=== PATIENT | female | born 1975 | race Caucasian/White ===

== ENCOUNTER 2018-07-10 13:12 | Emergency (ER) | END 2018-07-10 14:16 | disposition home or self-care (01) ==

== ENCOUNTER 2019-05-24 00:55 | Inpatient (IN) | payer OTHER ==
[~2019-05-24] VITALS: Ht 157.5 cm; Wt 73.4 kg
[~2019-05-24 00:55] MED LIST: CEPH-443 PO; SULF1TAB31 PO
[2019-05-24] MEDS ORDERED: ALBUTEROL 0.5% (NEB) 2.5 MG/0.5 ML AMP INH STA (01:17)
--- NOTE | 2019-05-24 01:19 | ERD ---
ER Documentation Chief Complaint Chief Complaint SOB,wheezing since yesterday,denies chest pain HPI This is a 43-year-old woman complaining of shortness of breath, dyspnea on exertion, orthopnea x2 days with increased leg swelling. This evening she had difficulty breathing and called 911. She denies history of asthma or CHF, no r ecent fevers or chills, no chest pain, no vomiting or diarrhea ROS All systems reviewed and are negative except as per history of present illness. Medications Home Meds Active Scripts Sulfamethoxazole/Trimethoprim* (Bactrim Ds* Tablet) 1 Each Tablet, 1 TAB PO BID, #14 TAB Prov:JASWINDER OLIVO MD 07/10/18 Cephalexin* (Keflex*) 500 Mg Capsule, 500 MG PO QID for 7 Days, CAP Prov:JASWINDER OLIVO MD 07/10/18 Allergies Allergies: Coded Allergies: No Known Allergy (Unverified , 05/24/19) PMhx/Soc Obesity, hypertension, diabetes mellitus History of Surgery: No Anesthesia Reaction: No Hx Neurological Disorder: No Hx Respiratory Disorders: No Hx Cardiac Disorders: No Hx Psychiatric Problems: No Hx Miscellaneous Medical Probl: Yes Physical Exam Vitals Vital Signs Date Temp Pulse Resp B/P (MAP) Pulse Ox O2 O2 Flow FiO2 Time Delivery Rate 05/24/19 109 100 50 03:28 05/24/19 108 25 229/115 100 BIPAP 02:18 (153) 05/24/19 121 98 50 01:11 05/24/19 97.8 128 36 240/107 75 01:06 (151) Physical Exam Const: Well-developed well-nourished woman, dyspneic, afebrile HEENT: Positive JVD, moist mucous membranes, pink conjunctive a Resp: Crackles throughout the lung burden, minimal wheezes no stridor Cardio: Tachycardic and regular no murmurs Ext: No cyanosis, 3+ pitting edema in the lower extremities bilaterally, calves symmetrical Neur: Awake and alert x3, no focal deficits or facial asymmetry Psych: Normal Mood and Affect Result Diagram: 05/24/198 05/24/198 Results 24 hrs Laboratory Tests Test 05/24/19 01:18 05/24/19 01:19 05/24/19 01:45 White Blood Count 12.0 10^3/ul Red Blood Count 4.77 10^6/ul Hemoglobin 11.2 g/dl Hematocrit 36.1 % Mean Corpuscular Volume 75.7 fl Mean Corpuscular Hemoglobin 23.5 pg Mean Corpuscular 31.0 g/dl Hemoglobin Concent Red Cell Distribution Width 19.8 % Platelet Count 361 10^3/UL Mean Platelet Volume 10.5 fl Immature Granulocytes % 0.500 % Neutrophils % 79.9 % Lymphocytes % 13.1 % Monocytes % 3.6 % Eosinophils % 2.3 % Basophils % 0.6 % Nucleated Red Blood Cells % 0.0 /100WBC Immature Granulocytes # 0.060 10^3/ul Neutrophils # 9.6 10^3/ul Lymphocytes # 1.6 10^3/ul Monocytes # 0.4 10^3/ul Eosinophils # 0.3 10^3/ul Basophils # 0.1 10^3/ul Nucleated Red Blood Cells # 0.0 10^3/ul Sodium Level 143 mmol/L Potassium Level 5.2 mmol/L Chloride Level 114 mmol/L Carbon Dioxide Level 17 mmol/L Anion Gap 12 Blood Urea Nitrogen 58 mg/dl Creatinine 5.60 mg/dl Est Glomerular Filtrat 8 mL/min Rate mL/min Glucose Level 276 mg/dl Calcium Level 8.3 mg/dl Total Bilirubin 0.2 mg/dl Direct Bilirubin 0.00 mg/dl Indirect Bilirubin 0.2 mg/dl Aspartate Amino Transf (AST/SGOT) 20 IU/L Alanine 12 IU/L Aminotransferase (ALT/SGPT) Alkaline Phosphatase 120 IU/L Troponin I 0.055 ng/ml B-Type Natriuretic Peptide 20552 PG/ML Total Protein 7.6 g/dl Albumin 3.6 g/dl Globulin 4.00 g/dl Albumin/Globulin Ratio 0.90 Lipase 213 U/L Prothrombin Time Pending Prothrombin Time Ratio 1.0 INR International Pending Normalized Ratio Activated Partial Thromboplast 32.6 Sec Time Urine Color STRAW Urine Clarity SLIGHTLY CLOUDY Urine pH 6.0 Urine Specific [place] 1.009 Urine Ketones NEGATIVE mg/dL Urine Nitrite NEGATIVE mg/dL Urine Bilirubin NEGATIVE mg/dL Urine Urobilinogen NEGATIVE mg/dL Urine Leukocyte Esterase 1+ Ana/ul Urine Microscopic RBC 2 /HPF Urine Microscopic WBC 152 /HPF Urine Hemoglobin 1+ mg/dL Urine Glucose 3+ mg/dL Urine Total Protein 3+ mg/dl Current Medications Medications Dose Sig/Beckie Start Time Status Last (Trade) Ordered Route PRN Stop Time Admin Dose Reason Admin Furosemide 60 mg ONCE ONCE 05/24/19 DC 05/24/19 (Lasix) IV 01:30 05/24/19 01:22 01:31 Aspirin 324 mg ONCE ONCE 05/24/19 DC 05/24/19 (Aspirin) PO 01:30 05/24/19 01:21 01:31 Enalaprilat 1.25 mg ONCE ONCE 05/24/19 DC 05/24/19 (Vasotec Iv) IV 01:30 05/24/19 01:21 01:31 Albuterol 10 mg ONCE STAT 05/24/19 DC 05/24/19 (Proventil INH 01:17 05/24/19 02:08 0.5% (Neb)) 01:22 Clonidine 0.1 mg ONCE ONCE 05/24/19 DC 05/24/19 (Catapres) PO 02:30 05/24/19 02:17 02:31 Procedures/MDM IV line was established patient was placed on wind energy engineer rhythm strip revealed a narrow complex tachycardia at 120 bpm with upright P and T waves. Patient was afebrile EKG performed, read by me revealed a sinus tachycardia at 119 bpm, normal axis, narrow QRS complex, no concerning ST elevations or depressions noted Patient was placed on BiPAP therapy also administered furosemide 60 mg IV x1, aspirin 324 mg p.o. for cardioprotective measures, enalapril 1.25 mg IV for hypertension Patient also received albuterol 10 mg via nebulizer. 1 view chest x-ray performed, read by me revealed bilateral pulmonary edema, no acute infiltrates, no pneumothorax CBC was unremarkable electrolytes revealed acute renal failure with a BUN/creatinine of 58/5.6, and mild hyperkalemia, liver function tests were unremarkable, troponin negative, BNP elevated, urinalysis positive for infection. Critical Care: Time: 50 minutes, this was time separate from other billable procedures. Treatments/Evaluations: Close monitoring and treatment of unstable vital signs, cardiorespiratory, and neurologic status, while maintaining tight balance of fluid, respiratory, and cardiac interventions. For continued hypertension I administered clonidine 0.1 mg p.o. x1 Dumont catheter was placed and I treated the patient with ceftriaxone 1 g IV Patient will be admitted to telemetry setting for continued medical management and cardiology and nephrology consultation Departure Diagnosis: Primary Impression: Hypertensive emergency Additional Impressions: Acute pulmonary edema Acute renal failure Acute renal failure type: with acute tubular necrosis Qualified Codes: N17.0 - Acute kidney failure with tubular necrosis Acute UTI CHF (congestive heart failure) Heart failure type: combined systolic and diastolic Heart failure chronicity: acute Qualified Codes: I50.41 - Acute combined systolic (congestive) and diastolic (congestive) heart failure Condition: HA Mendez MD May 24, 2019 01:19
[2019-05-24] MEDS ORDERED: ASPIRIN 81 MG TAB PO ONE (01:30)
[2019-05-24] MEDS ORDERED: FUROSEMIDE 40 MG INJ IV ONE (01:30)
[2019-05-24] MEDS ORDERED: ENALAPRILAT 1.25 MG INJ IV ONE (01:30)
[2019-05-24] MEDS ORDERED: CEFTRIAXONE 1 GM/50 ML (PMX) 50 ML IVPB ONE (04:30)
--- NOTE | 2019-05-24 08:14 | CONS ---
Assessment/Plan Assessment/Plan Assessment/Plan (Daily) 1. acute hyperkalemia 2. Acute kidney injury on CKD III/IV due to hemodynamics from Diastolic heart failure 3. metabolic acidosis 4. 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 Diastolic Heart failure, ECHo showed EF 50%, stage III/IV diastolic dysfunction 7. H/o HTN with accelerated HTN now 8. H/O HL 9. H/o DM II Plan: Lasix 40mg IV BID, ECHo showed EF 50%, stage III/IV diastolic dysfunction- Renal US showed The right kidney measures 9.6 cm. The left kidney measures 10.1 cm., normal echogenicity Bicitra 30ml PO TID for metabolic acidosis Iron panel, ferritin, uric acid, Vitamin D, PTH, CK total for work up for CKD increase amlodipine to 10mg po daily , MTP 50mg bID and Lasix 40mg IV BID Thanks for consultation ,we will follow up Consultation Date/Type/Reason Admit Date/Time 05/24/2019 Date of Consultation: May 24, 2019 Type of Consult NEPHROLOGY Reason for Consultation acute hyperkalemia, JEOVANY on CKD IV, metabolic acidosis Requesting Provider: WARREN MASSEY MD Date/Time of Note DATE: 05/24/19 TIME: 08:14 Hx of Present Illness 43-year-old female with a history of poorly controlled hypertension and type 2 diabetes mellitus, as well as noncompliance with medical therapy, presented to Emergency Room with complaint of shortness of breath and dyspnea on exertion for several days. The patient also noted bilateral leg swelling. She had not been taking any of her medications for the last 6 months prior to admi ssion and failed to follow up with her primary care provider. BUN/Cr on admissoin 58/5.6, HCo3 17, K 5.7- Renal has been consulted for Acute hyperkalemia, JEOVANY on CKD IV, and metabolic acidosis. ECHo showed EF 50%, stage III/IV diastolic dysfunction Constitutional: poor po ENT: congestion Respiratory: cough, pleuritic pain, shortness of breath Cardiovascular: no complaints Gastrointestinal: no complaints Genitourinary: no complaints Musculoskeletal: swelling (bilateral leg swelling ) Skin: no complaints Neurologic: no complaints Endocrine: no complaints Lymphatic: no complaints Psychological: no complaints Immunologic: no complaints Past Medical History Medical History: diabetes, high cholesterol, hypertension, other (CKD III) Home Meds Active Scripts Furosemide* (Lasix*) 40 Mg Tablet, 40 MG PO BID for 30 Days, TAB 3 Refills Prov:WARREN MASSEY MD 05/25/19 Furosemide* (Furosemide*) 40 Mg Tablet, 40 MG PO DAILY for 30 Days, TAB Prov:WARREN MASSEY MD 05/25/19 Citric Acid/Sodium Citrate* (Bicitra* (PEDIATRIC)) 1 Meq/Ml Soln, 30 ML PO TID for 30 Days Prov:WARREN MASSEY MD 05/25/19 Amlodipine Besylate* (Amlodipine Besylate*) 2.5 Mg Tablet, 5 MG PO HS for 30 Days, #30 TAB 3 Refills Prov:WARREN MASSEY MD 05/25/19 Glimepiride* (Glimepiride*) 4 Mg Tablet, 4 MG PO WITH BREAKFAST LUNCH for 30 Days, TAB 3 Refills Prov:WARREN MASSEY MD 05/25/19 Insulin Lispro (Humalog) 100 Unit/1 Ml Cartridge, 8 UNIT SQ AC A for 30 Days, EA 3 Refills Prov:WARREN MASSEY MD 05/25/19 Atorvastatin Calcium (Atorvastatin Calcium) 10 Mg Tablet, 20 MG PO QHS for 30 Days, #30 TAB 3 Refills Prov:WARREN MASSEY MD 05/25/19 Hydralazine Hcl* (Hydralazine Hcl*) 25 Mg Tab, 50 MG PO TID for 30 Days, #90 TAB 3 Refills Prov:WARREN MASSEY MD 05/25/19 Insulin Glargine,Hum.rec.anlog (Basaglar Kwikpen U-100) 100 Unit/1 Ml Insuln. pen, 30 UNIT SC HS for 30 Days, EA 3 Refills Prov:WARREN MASSEY MD 05/25/19 Metoprolol Tartrate* (Lopressor*) 50 Mg Tab, 50 MG PO DAILY for 30 Days, #60 TAB 3 Refills Prov:WARREN MASSEY MD 05/25/19 Discontinued Reported Medications Losartan-Hydrochlorothiazide (Losartan-HCTZ) 100-25 Mg Tab, 1 TAB PO DAILY, TAB 05/24/19 Discontinued Scripts Sulfamethoxazole/Trimethoprim* (Bactrim Ds* Tablet) 1 Each Tablet, 1 TAB PO BID, #14 TAB Prov:JASWINDER OLIVO MD 07/10/18 Cephalexin* (Keflex*) 500 Mg Capsule, 500 MG PO QID for 7 Days, CAP Prov:JASWINDER OLIVO MD 07/10/18 Medications Current Medications Furosemide (Lasix) 40 mg BID IV ; Start 05/24/19 at 09:00 Citric Acid/ Sodium Citrate (Bicitra) 30 ml TID PO ; Start 05/24/19 at 09:00; Status UNV Allergies: Coded Allergies: No Known Allergy (Unverified , 05/24/19) Past Surgical History Past Surgical Hx: no surgical history Family History Significant Family History: no pertinent family hx Social History Alcohol Use: none Smoking Status: Never smoker Drug Use: none Exam/Review of Systems Exam Vitals Vital Signs Date Temp Pulse Resp B/P (MAP) Pulse Ox O2 O2 Flow FiO2 Time Delivery Rate 05/24/19 86 100 07:40 05/24/19 97.8 20 162/85 BIPAP 07:37 (110) 05/24/19 40 04:59 Intake and Output 05/23/19 05/23/19 05/24/19 1515:00 23:00 07:00 OutputOutput Total 400 ml BalanceBalance -400 ml Constitutional: alert Psych: no complaints Head: normocephalic Eyes: nl conjunctiva ENMT: nl external ears & nose Neck: supple, non-tender Respiratory: congested cough, crackles/rales, diminished breath sounds Cardiovascular: regular rate and rhythm, nl pulses Gastrointestinal: soft, non-tender Musculoskeletal: muscle weakness, swelling (2+ Leg edema ) Extremities: normal pulses Neurological: CLINICAL DATA ABSTRACTOR II-XII intact Skin: nl turgor Lymph: nl lymph nodes Results Result Diagram: 05/24/19 0118 05/24/19 0118 Results 24hrs Laboratory Tests Test 05/24/19 01:18 05/24/19 01:19 05/24/19 01:45 White Blood Count 12.0 H Red Blood Count 4.77 Hemoglobin 11.2 L Hematocrit 36.1 L Mean Corpuscular Volume 75.7 L Mean Corpuscular Hemoglobin 23.5 L Mean Corpuscular 31.0 L Hemoglobin Concent Red Cell Distribution Width 19.8 H Platelet Count 361 Mean Platelet Volume 10.5 H Immature Granulocytes % 0.500 H Neutrophils % 79.9 H Lymphocytes % 13.1 L Monocytes % 3.6 Eosinophils % 2.3 Basophils % 0.6 Nucleated Red Blood Cells % 0.0 Immature Granulocytes # 0.060 H Neutrophils # 9.6 H Lymphocytes # 1.6 Monocytes # 0.4 Eosinophils # 0.3 Basophils # 0.1 Nucleated Red Blood Cells # 0.0 Sodium Level 143 Potassium Level 5.2 H Chloride Level 114 H Carbon Dioxide Level 17 L Anion Gap 12 Blood Urea Nitrogen 58 H Creatinine 5.60 H Est Glomerular Filtrat 8 L Rate mL/min Glucose Level 276 H Calcium Level 8.3 L Total Bilirubin 0.2 Direct Bilirubin 0.00 Indirect Bilirubin 0.2 Aspartate Amino 20 Transf (AST/SGOT) Alanine 12 L Aminotransferase (ALT/SGPT) Alkaline Phosphatase 120 Troponin I 0.055 B-Type Natriuretic Peptide 27599 H Total Protein 7.6 Albumin 3.6 Globulin 4.00 H Albumin/Globulin Ratio 0.90 Lipase 213 Prothrombin Time 13.2 Prothrombin Time Ratio 1.0 INR International 0.99 Normalized Ratio Activated Partial Thromboplast 32.6 Time Urine Color STRAW Urine Clarity SLIGHTLY CLOUDY A Urine pH 6.0 Urine Specific [place] 1.009 Urine Ketones NEGATIVE Urine Nitrite NEGATIVE Urine Bilirubin NEGATIVE Urine Urobilinogen NEGATIVE Urine Leukocyte Esterase 1+ H Urine Microscopic RBC 2 Urine Microscopic WBC 152 H Urine Hemoglobin 1+ H Urine Glucose 3+ H Urine Total Protein 3+ H Medications Medication Current Medications Furosemide (Lasix) 40 mg BID IV ; Start 05/24/19 at 09:00 Citric Acid/ Sodium Citrate (Bicitra) 30 ml TID PO ; Start 05/24/19 at 09:00; Status ALEJANDRO PRUITT MD May 24, 2019 08:14
[2019-05-24 09:00] VITALS: BP 197/95; PULSE 85; RESP 24
[2019-05-24 09:09] VITALS: Ht 157.5 cm; Wt 73.4 kg
[2019-05-24] MEDS: FUROSEMIDE 40 MG INJ IV SCH ×2 (09:20→22:10)
[2019-05-24] MEDS: CITRIC ACID/NA CITRATE 30 ML CUP PO SCH ×3 (09:20→22:12)
[2019-05-24 09:40] VITALS: BP 180/84
[2019-05-24] MEDS ORDERED: HYDR-3671 PO (10:03)
[2019-05-24] MEDS ORDERED: METO-429 PO (10:03)
[2019-05-24] MEDS ORDERED: LOSA1TAB25 PO (10:03)
[2019-05-24] MEDS ORDERED: ATOR10TA65 PO (10:03)
[2019-05-24] MEDS ORDERED: AMLO2.5T78 PO (10:03)
[2019-05-24] MEDS ORDERED: INSU100I33 SC (10:03)
[2019-05-24] MEDS ORDERED: INSU100C SQ (10:03)
[2019-05-24] MEDS ORDERED: GLIM4TAB PO (10:03)
[2019-05-24] MEDS: AMLODIPINE 5 MG TAB PO SCH (10:22)
[2019-05-24] MEDS: METOPROLOL 50 MG TAB PO SCH ×2 (10:23→22:11)
[2019-05-24] MEDS ORDERED: GLUCAGON 1 MG INJ IM PRN (10:30)
[2019-05-24] MEDS ORDERED: GLUCOSE GEL 15 GRAM TUBE PO PRN ×2 (10:30)
[2019-05-24] MEDS ORDERED: GLUCOSE GEL 15 GRAM TUBE BUCCAL PRN (10:30)
[2019-05-24] MEDS ORDERED: DEXTROSE 50% 50 ML SYRINGE IV PRN ×2 (10:30)
--- NOTE | 2019-05-24 10:35 | HP ---
DATE OF ADMISSION: 05/24/2019 CHIEF COMPLAINT: Shortness of breath and dyspnea on exertion. HISTORY OF PRESENT ILLNESS: A 43-year-old female with a history of poorly controlled hypert ension and type 2 diabetes mellitus, as well as noncompliance with medical therapy, presented to [facility] Room with complaint of shortness of breath and dyspnea on exertion for several days. The patie nt also noted bilateral leg swelling. She had not been taking any of her medications for the last 6 months prior to admission and failed to follow up with her primary care provider. The patient is not aware of any cardiac history or kidney problems. Initial evaluation revealed evidence of poorly con trolled hypertension, and congestive heart failure. BUN was 58 and creatinine 5.6. Potassium was 5. 2 and bicarbonate was 17. Blood sugar was elevated at 276. CBC showed white cells of 12, hemoglobin of 11.2, platelet count of 361,000. PAST MEDICAL HISTORY: 1. Hypertension. 2. Type 2 diabetes mellitus. MEDICATIONS PRIOR TO ADMISSION: None. SOCIAL HISTORY: Patient lives at home. Her son was at the bedside. Denies tobacco or alcohol use. The patient has been noncompliant with medical therapy and followup. PHYSICAL EXAMINATION: GENERAL: Well-developed, well-nourished female who is in no apparent distress. VITAL SIGNS: Stable. She is afebrile. HEENT: Extraocular muscles intact. Pupils equal, reactive to light bilaterally. Sclerae are anicte chana. Oropharynx is clear and moist. NECK: Supple, no JVD, no carotid bruits. LUNGS: Bibasilar crackles. CARDIAC: Regular rate and rhythm. No murmurs or gallops. ABDOMEN: Soft, mild epigastric tenderness to palpation. EXTREMITIES: 1+ pitting edema. NEUROLOGICAL: Nonfocal. LABORATORY DATA: BNP was elevated at 74,800. Albumin was 3.6. Liver function tests were within nor mal limits. Chest x-ray shows left greater than right airspace disease with left pleural effusion. There was car diomegaly with mild to moderate failure. I also ordered ultrasound which was unremarkable. ASSESSMENT: 1. A 43-year-old female presenting with a new onset congestive heart failure exacerbation and fluid overload. 2. Acute versus chronic kidney disease. 3. Poorly controlled hypertension. 4. Poorly controlled type 2 diabetes mellitus. 5. Diabetic nephropathy. 6. Noncompliance with medical therapy and followup. PLAN: 1. Admit to telemetry. 2. IV Lasix 40 mg b.i.d. 3. Lopressor 50 mg b.i.d. 4. Norvasc 5 mg daily. 5. Clonidine p.r.n. 6. Start a cardiac diabetic diet. 7. Sliding scale insulin with moderate coverage. 8. Dietitian consultation. 9. Nephrology consultation was requested. 10. Echo 2D was ordered. Dictated By: WARREN MANUEL/NTS Conf#: [id number] DID#: [id number] CC: ALEJANDRO REMY MD;*EndCC*
[2019-05-24 11:05] VITALS: BP 147/76; PULSE 68; RESP 18
[2019-05-24] MEDS: INSULIN ASPART [NOVOLOG] 3 ML PEN SC SCH ×3 (11:49→20:41)
[2019-05-24] MEDS ORDERED: GLIMEPIRIDE 4 MG TAB PO SCH (11:50)
[2019-05-24 15:01] VITALS: BP 126/69; PULSE 64; RESP 18
[2019-05-24 19:50] VITALS: BP 147/70; PULSE 71; RESP 18
[2019-05-24] MEDS ORDERED: ATORVASTATIN 10 MG TAB PO SCH (21:00)
--- NOTE | 2019-05-24 23:41 | RADRPT ---
Echocardiogram Report Patient Name: Yocasta LANDERStient ID: [id number] : 1975 (43y 11m)Study Date: 05/24/2019 12:02:27 PM Gender: FAccession #: [id number] Tech: Jc [facility] Location: [address] Ref.Physician: WARREN MASSEY Height(Cm): BSA: Weight(Kg): Quality: AdequateOrder Physician: WARREN MASSEY Account #: Procedures: Echocardiographic Report: Transthoracic echocardiogram with complete 2D, M-Mode, and doppler examination. Indications: Evaluate Left Ventricular function. Measurements: 2D/M Mode Doppler Measurement Value Normal Range Measurement Value Normal Range LVIDd 2D 3.6 [ 3.8 - 5.2 ] cm AV Peak Jun 1.2 [ 100.0 - 170.0 ] cm/sec LVIDs 2D 2.5 [ 2.2 - 3.5 ] cm AV Peak PG 6.0 [ 2.0 - 9.0 ] mmHg LVPWd 2D 1.5 [ 0.6 - 0.9 ] cm LVOT Peak Jun 1.0 [ 70.0 - 110.0 ] cm/sec IVSd 2D 1.5 [ 0.6 - 0.9 ] cm LVOT Peak PG 4.0 [ 2.0 - 6.0 ] mmHg AoR Diam 2D 2.4 [ 2.3 - 3.1 ] cm MV E Peak Jun 1.2 [ 60.0 - 130.0 ] cm/sec EDV 2D 54.4 [ 46.0 - 106.0 ] ml MV A Peak Jun 0.3 [ 100.0 - 120.0 ] cm/sec ESV 2D 23.0 [ 14.0 - 42.0 ] ml MV E/A 3.5 [ 0.8 - 1.5 ] ratio EF 2D 57.7 [ 54.0 - 74.0 ] percent MV Decel Time 158 [ 104 - 258 ] msec LA Dimen 2D 4.4 [ 2.7 - 3.8 ] cm Lat E` Jun 0.1 [ 10.0 - 15.0 ] cm/sec Lateral E/E` 14.2 [ 1.0 - 2.0 ] ratio Med E` Jun 0.1 cm/sec MV E/A 3.5 [ 0.8 - 1.5 ] ratio TR Peak Jun 2.9 [ 100.0 - 280.0 ] cm/sec TR Peak PG 34.0 mmHg RVSP 49.0 [ 10.0 - 36.0 ] mmHg Findings: Left Ventricle: Lower limits of normal systolic function. Normal left ventricular cavity size. Moderate concentric left ventricular hypertrophy. Ejection fraction is visually estimated at 50 %. Tissue Doppler/Mitral Doppler indices are consistent with restrictive physiology with markedly elevated left atrial pressure (Stage III-IV diastolic dysfunction). Right Ventricle: Normal right ventricular size. Normal right ventricular systolic function. Left Atrium: There is mild enlargement of left atrium. Right Atrium: The right atrium is normal in size. Mitral Valve: Mild mitral leaflet calcification. Mild mitral annular calcification. Trace mitral regurgitation. Aortic Valve: No significant aortic stenosis or insufficiency. Aortic cusps appear mildly calcified. Tricuspid Valve: Normal appearance of the tricuspid valve. The estimated Peak RVSP is 49 mmHg. There is mild tricuspid regurgitation. Pericardium: Small to moderate pericardial effusion. Left pleural effusion seen. Aorta: Normal aortic root. IVC: Dilated IVC without respiratory collapse consistent with elevated right atrial pressure. Conclusions: Lower limits of normal systolic function. Normal left ventricular cavity size. Moderate concentric left ventricular hypertrophy. Ejection fraction is visually estimated at 50 %. Tissue Doppler/Mitral Doppler indices are consistent with restrictive physiology with markedly elevated left atrial pressure (Stage III-IV diastolic dysfunction). Normal right ventricular size. Normal right ventricular systolic function. There is mild enlargement of left atrium. The right atrium is normal in size. The estimated Peak RVSP is 49 mmHg. There is mild tricuspid regurgitation. No significant valvular stenosis or regurgitation seen of remaining visualized valves. Small to moderate pericardial effusion. Left pleural effusion seen. Electronically Signed By: Gideon Petersen 2019-05-24 23:40:20 PDT
[2019-05-25 00:25] VITALS: BP 130/69; PULSE 62; RESP 18
[2019-05-25 04:09] VITALS: BP_SYST 143; BP_SYST 145; BP_DIAS 69; PULSE 62; PULSE 72; RESP 18
[2019-05-25 07:12] VITALS: BP 170/77; PULSE 67; RESP 18
[2019-05-25] MEDS: INSULIN ASPART [NOVOLOG] 3 ML PEN SC SCH ×2 (07:43→11:46)
[2019-05-25] MEDS: CITRIC ACID/NA CITRATE 30 ML CUP PO SCH ×2 (08:04→12:30)
[2019-05-25] MEDS: FUROSEMIDE 40 MG INJ IV SCH (08:05)
[2019-05-25] MEDS: AMLODIPINE 5 MG TAB PO SCH (08:05)
[2019-05-25] MEDS: METOPROLOL 50 MG TAB PO SCH (08:07)
[2019-05-25] MEDS ORDERED: NIFEdipine (XL) 30 MG TAB PO SCH (09:00)
[2019-05-25] MEDS ORDERED: FURO-109 PO (09:28)
[2019-05-25] MEDS ORDERED: GLIM4TAB PO (09:28)
[2019-05-25] MEDS ORDERED: INSU100C SQ (09:28)
[2019-05-25] MEDS ORDERED: METO-429 PO (09:28)
[2019-05-25] MEDS ORDERED: AMLO2.5T78 PO (09:28)
[2019-05-25] MEDS ORDERED: INSU100I33 SC (09:28)
[2019-05-25] MEDS ORDERED: HYDR-3671 PO (09:28)
[2019-05-25] MEDS ORDERED: BICS PO (09:28)
[2019-05-25] MEDS ORDERED: FURO40TA4 PO (09:28)
[2019-05-25] MEDS ORDERED: ATOR10TA65 PO (09:28)
--- NOTE | 2019-05-25 09:28 | CONS ---
Assessment/Plan Assessment/Plan Assessment/Plan (Daily) 1. acute hyperkalemia 2. Acute kidney injury on CKD III/IV due to hemodynamics from Diastolic heart failure 3. metabolic acidosis 4. 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 Diastolic Heart failure, ECHo showed EF 50%, stage III/IV diastolic dysfunction 7. H/o HTN with accelerated HTN now 8. H/O HL 9. H/o DM II Plan: Lasix 40mg IV BID, ECHo showed EF 50%, stage III/IV diastolic dysfunction- change lasix 40mg PO BID upon discharge Renal US showed The right kidney measures 9.6 cm. The left kidney measures 10.1 cm., normal echogenicity Bicitra 30ml PO TID for metabolic acidosis Iron panel, ferritin, uric acid, Vitamin D, PTH, CK total for work up for CKD- still pending increase amlodipine to 10mg po daily , MTP 50mg bID Follow up mitch islas in clinic in 1 week upon discharge Consultation Date/Type/Reason Admit Date/Time May 24, 2019 at 02:32 Initial Consult Date Date/Time of Note DATE: 05/25/19 TIME: 09:28 24 HR Interval Summary Free Text/Dictation no labs today to review yet, ECHO showed EF 50% with stage III/IV diastolic dysfunction Exam/Review of Systems Exam Vitals Vital Signs Date Temp Pulse Resp B/P (MAP) Pulse Ox O2 O2 Flow FiO2 Time Delivery Rate 05/25/19 98.3 67 18 170/77 97 Nasal 07:12 (108) Cannula 05/25/19 2.0 05:36 05/24/19 40 04:59 Intake and Output 05/24/19 05/24/19 05/25/19 1515:00 23:00 07:00 IntakeIntake Total 440 ml 120 ml OutputOutput Total 1000 ml 700 ml 600 ml BalanceBalance -560 ml -580 ml -600 ml Exam Constitutional: alert, awake on RA, no acute distress Respiratory: congested cough, crackles/rales, diminished breath sounds Cardiovascular: regular rate and rhythm, nl pulses Gastrointestinal: soft, non-tender Musculoskeletal: muscle weakness, swelling (1-2+ Leg edema ) Extremities: normal pulses Neurological: COMPUTER SYSTEMS DESIGNER II-XII intact Results Result Diagram: 05/24/198 05/24/19117 Results 24hrs Laboratory Tests Test 05/24/19 11:26 05/24/19 12:15 05/24/19 17:21 05/24/19 20:40 Bedside Glucose 328 H 121 120 Urine Eosinophils % 0.0 Urine Random Creatinine 25.68 Urine Random Sodium 113 H Urine Protein/Creatinine 21.80 Ratio Urine Total Protein 560.0 H Test 05/25/19 02:37 05/25/19 06:10 05/25/19 07:41 Bedside Glucose 109 94 Uric Acid 7.6 Creatine Kinase 198 Medications Medication Current Medications Furosemide (Lasix) 40 mg BID IV Last administered on 05/25/19at 08:05; Admin Dose 40 MG; Start 05/24/19 at 09:00 Citric Acid/ Sodium Citrate (Bicitra) 30 ml TID PO Last administered on 05/25/19at 08:04; Admin Dose 30 ML; Start 05/24/19 at 09:00 Metoprolol Tartrate (Lopressor) 50 mg BID PO Last administered on 05/25/19at 08:07; Admin Dose 50 MG; Start 05/24/19 at 10:00 Amlodipine Besylate (Norvasc) 5 mg DAILY PO Last administered on 05/25/19at 08:05; Admin Dose 5 MG; Start 05/24/19 at 10:00 Clonidine (Catapres) 0.1 mg Q6 PRN NGT SBP>160; Start 05/24/19 at 10:00 Insulin Aspart (Novolog Insulin Pen) NOVOLOG *MODERATE* ALGORITHM WITH MEALS BEDTIME SC Last administered on 05/24/19at 11:49; Admin Dose 10 UNIT; Start 05/24/19 at 11:50 Miscellaneous Information 1 ea NOTE XX ; Start 05/24/19 at 10:30 Glucose (Glutose) 15 gm Q15M PRN PO DECREASED GLUCOSE; Start 05/24/19 at 10:30 Glucose (Glutose) 22.5 gm Q15M PRN PO DECREASED GLUCOSE; Start 05/24/19 at 10:30 Dextrose (D50w Syringe) 25 ml Q15M PRN IV DECREASED GLUCOSE; Start 05/24/19 at 10:30 Dextrose (D50w Syringe) 50 ml Q15M PRN IV DECREASED GLUCOSE; Start 05/24/19 at 10:30 Glucagon (Glucagen) 1 mg Q15M PRN IM DECREASED GLUCOSE; Start 05/24/19 at 10:30 Glucose (Glutose) 15 gm Q15M PRN BUCCAL DECREASED GLUCOSE; Start 05/24/19 at 10:30 Atorvastatin Calcium (Lipitor) 20 mg QHS PO Last administered on 05/24/19at 22:11; Admin Dose 20 MG; Start 05/24/19 at 21:00 Hydralazine HCl (Apresoline) 25 mg TID PO Last administered on 05/25/19at 08:05; Admin Dose 25 MG; Start 05/24/19 at 13:00 Nifedipine (Procardia Xl) 30 mg DAILY PO ; Start 05/25/19 at 09:00; Status UNALEJANDRO IBANEZ MD May 25, 2019 09:28
--- NOTE | 2019-05-25 09:29 | PDOCDIS ---
Discharge Instructions CONDITION [id number] Patient Condition: [id number] Good HOME CARE INSTRUCTIONS: [id number] Diet Instructions: [id number] Activity Restrictions: [id number] No Restrictions FOLLOW UP/APPOINTMENTS Follow-up Plan pcp [address] Sanchez 1 week [place] 1 week WARREN MASSEY MD May 25, 2019 09:29
[2019-05-25] MEDS ORDERED: FURO40SO PO (09:42)
[2019-05-25 11:40] VITALS: BP 148/73; PULSE 73; RESP 20
[2019-05-26] MEDS ORDERED: AMLODIPINE 10 MG TAB PO SCH (09:00)
== END 2019-05-25 15:02 | disposition home or self-care (01) | DRG 291 ==
LOC: E/R 00:55 → TEL 02:32
PROVIDERS: ADMIT Internal Medicine; ATTEND Internal Medicine
DX: I13.0 Hypertensive heart and chronic kidney disease with heart failure and stage 1 through stage 4 chronic kidney disease, or unspecified chronic kidney disease (principal); N17.0 Acute kidney failure with tubular necrosis; I50.30 Unspecified diastolic (congestive) heart failure; N18.4 Chronic kidney disease, stage 4 (severe); I16.1 Hypertensive emergency; E87.2 Acidosis; E87.5 Hyperkalemia; E11.21 Type 2 diabetes mellitus with diabetic nephropathy; Z91.19 Patient's noncompliance with other medical treatment and regimen; E11.65 Type 2 diabetes mellitus with hyperglycemia
CPT/HCPCS: 36415; 71045; 76775; 80053; 81001; 81003; 82306; 82550; 82570; 82728; 82962; 83540; 83690; 83880; 83970; 84300; 84484; 84560; 85025; 85610; 85730; 89190; 93005; 93306; 94644; 94660; 96374; 96375; J0696; J1815; J1940

== ENCOUNTER 2019-05-28 07:26 | Observation (INO) | payer OTHER ==
[~2019-05-28] VITALS: Ht 157.5 cm; Wt 72.0 kg
[~2019-05-28 07:26] MED LIST changes: +AMLO2.5T78 PO; +ATOR10TA65 PO; +BICS PO; -CEPH-443 PO; +FURO-109 PO; +FURO40SO PO; +GLIM4TAB PO; +HYDR-3671 PO; +INSU100C SQ; +INSU100I33 SC; +METO-429 PO; -SULF1TAB31 PO
[2019-05-28 07:32] VITALS: Ht 157.5 cm; Wt 72.0 kg
[2019-05-28] MEDS ORDERED: OCTREOTIDE 50 MCG INJ SC STA (08:14)
[2019-05-28] MEDS ORDERED: DEXTROSE 50% 50 ML SYRINGE IV STA (09:50)
[2019-05-28] MEDS ORDERED: DEXTROSE 5%-0.9% NACL 1,000 ML IV STA (09:50)
--- NOTE | 2019-05-28 12:27 | ERD ---
ER Documentation Chief Complaint Chief Complaint pt report shelly 52 @ home , 75 in intake , feels dizzy HPI Very pleasant 43-year-old female history of chronic renal insufficiency, insulin-dependent diabetes. The patient states that she was recently admitted. Since she has been home since Friday her blood sugars have been low despite not taking her insulin. She takes a sulfonylurea. The patient states that she has been eating. She feels weak at times when it is low. Patient denies any fevers chills chest pain or shortness of breath. ROS All systems reviewed and are negative except as per history of present illness. Medications Home Meds Active Scripts Furosemide* (Lasix*) 40 Mg Tablet, 40 MG PO BID for 30 Days, TAB 3 Refills Prov:WARREN MASSEY MD 05/25/19 Citric Acid/Sodium Citrate* (Bicitra* (PEDIATRIC)) 1 Meq/Ml Soln, 30 ML PO TID for 30 Days Prov:WARREN MASSEY MD 05/25/19 Amlodipine Besylate* (Amlodipine Besylate*) 2.5 Mg Tablet, 5 MG PO HS for 30 Days, #30 TAB 3 Refills Prov:WARREN MASSEY MD 05/25/19 Glimepiride* (Glimepiride*) 4 Mg Tablet, 4 MG PO WITH BREAKFAST LUNCH for 30 Days, TAB 3 Refills Prov:WARREN MASSEY MD 05/25/19 Insulin Lispro (Humalog) 100 Unit/1 Ml Cartridge, 8 UNIT SQ AC A for 30 Days, EA 3 Refills Prov:WARREN MASSEY MD 05/25/19 Atorvastatin Calcium (Atorvastatin Calcium) 10 Mg Tablet, 20 MG PO QHS for 30 Days, #30 TAB 3 Refills Prov:WARREN MASSEY MD 05/25/19 Hydralazine Hcl* (Hydralazine Hcl*) 25 Mg Tab, 50 MG PO TID for 30 Days, #90 TAB 3 Refills Prov:WARREN MASSEY MD 05/25/19 Insulin Glargine,Hum.rec.anlog (Basaglar Kwikpen U-100) 100 Unit/1 Ml Insuln.pen, 30 UNIT SC HS for 30 Days, EA 3 Refills Prov:WARREN MASSEY MD 05/25/19 Metoprolol Tartrate* (Lopressor*) 50 Mg Tab, 50 MG PO DAILY for 30 Days, #60 TAB 3 Refills Prov:WARREN MASSEY MD 05/25/19 Discontinued Reported Medications Losartan-Hydrochlorothiazide (Losartan-HCTZ) 100-25 Mg Tab, 1 TAB PO DAILY, TAB 05/24/19 Discontinued Scripts Furosemide* (Furosemide*) 40 Mg/5 Ml Solution, 40 MG PO BID for 30 Days, #60 ML Prov:WARREN MASSEY MD 05/25/19 Sulfamethoxazole/Trimethoprim* (Bactrim Ds* Tablet) 1 Each Tablet, 1 TAB PO BID, #14 TAB Prov:JASWINDER OLIVO MD 07/10/18 Cephalexin* (Keflex*) 500 Mg Capsule, 500 MG PO QID for 7 Days, CAP Prov:JASWINDER OLIVO MD 07/10/18 Allergies Allergies: Coded Allergies: No Known Allergy (Unverified , 05/28/19) PMhx/Soc History of Surgery: No Anesthesia Reaction: No Hx Neurological Disorder: No Hx Respiratory Disorders: No Hx Cardiac Disorders: Yes (HTN) Hx Psychiatric Problems: No Hx Miscellaneous Medical Probl: No Hx Alcohol Use: No Hx Substance Use: No Hx Tobacco Use: No Smoking Status: Never smoker FmHx Family History: diabetes Physical Exam Vitals Vital Signs Date Temp Pulse Resp B/P (MAP) Pulse Ox O2 O2 Flow FiO2 Time Delivery Rate 05/28/19 76 20 178/86 98 Nasal 2.0 11:53 (116) Cannula 05/28/19 98.1 88 18 201/96 98 07:32 (131) Physical Exam General: Well developed, well nourished, no acute distress Head: Normocephalic, atraumatic. Eyes: Pupils equally reactive, EOM intact ENT: Moist mucous membranes Neck: Supple, no lymphadenopathy Respiratory: Lungs clear bilaterally, no distress Cardiovascular: RRR, no murmurs, rubs, or gallops Abdominal: Soft, non-tender, non-distended, no peritoneal signs : Deferred MSK: No edema, no unilateral swelling, 5/5 strength Neurologic: Alert and oriented, moving all extremities, normal speech, no focal weakness, no cerebellar signs Skin: No rash Psych: Normal mood Result Diagram: 05/28/19 0830 05/28/19 0830 Results 24 hrs Laboratory Tests Test 05/28/19 08:30 05/28/19 09:20 05/28/19 09:45 05/28/19 10:04 White Blood Count 8.3 10^3/ul Red Blood Count 4.23 10^6/ul Hemoglobin 9.9 g/dl Hematocrit 32.3 % Mean Corpuscular 76.4 fl Volume Mean Corpuscular 23.4 pg Hemoglobin Mean Corpuscular 30.7 g/dl Hemoglobin Concent Red Cell Distribution 19.0 % Width Platelet Count 362 10^3/UL Mean Platelet Volume 11.0 fl Immature Granulocytes 0.400 % % Neutrophils % 85.0 % Lymphocytes % 7.1 % Monocytes % 5.4 % Eosinophils % 1.7 % Basophils % 0.4 % Nucleated Red Blood 0.0 /100WBC Cells % Immature Granulocytes 0.030 10^3/ul # Neutrophils # 7.1 10^3/ul Lymphocytes # 0.6 10^3/ul Monocytes # 0.5 10^3/ul Eosinophils # 0.1 10^3/ul Basophils # 0.0 10^3/ul Nucleated Red Blood 0.0 10^3/ul Cells # Sodium Level 141 mmol/L Potassium Level 4.2 mmol/L Chloride Level 107 mmol/L Carbon Dioxide Level 21 mmol/L Anion Gap 13 Blood Urea Nitrogen 61 mg/dl Creatinine 5.89 mg/dl Est Glomerular Filtrat 8 mL/min Rate mL/min Glucose Level 47 mg/dl Calcium Level 7.1 mg/dl Troponin I 0.053 ng/ml Bedside Glucose 64 mg/dL 51 mg/dL 264 mg/dL Test 05/28/19 11:29 Bedside Glucose 225 mg/dL Current Medications Medications Dose Sig/Beckie Start Time Status Last (Trade) Ordered Route PRN Stop Time Admin Dose Reason Admin Octreotide 50 mcg ONCE STAT 05/28/19 DC 05/28/19 Acetate SC 08:14 05/28/19 08:51 (Sandostatin) 08:17 Dextrose 50 ml ONCE STAT 05/28/19 DC 05/28/19 (D50w IV 09:50 05/28/19 09:55 Syringe) 09:52 1,000 ml @ Q10H STAT 05/28/19 05/28/19 Dextrose/Sodi 100 mls/hr IV 09:50 05/28/19 09:56 um Chloride 19:49 Procedures/MDM EKG, MONITORS, & DIAGNOSTIC IMAGING: EKG: I reviewed and interpreted a 12-lead EKG. Rhythm: Normal sinus rhythm ST Changes: No contiguous ST segment elevations T waves: No contiguous T wave inversions Impression: [No evidence of acute cardiac ischemia] Chest x-ray: I reviewed and interpreted a 1 view of the chest Mediastinum: No enlargement Cardiac silhouette: No cardiomegaly Airspace: Clear lung burden bilaterally without evidence of pneumothorax Bones: No evidence of fracture LAB INTERPRETATION: I reviewed the laboratory testing and it shows hypoglycemia MEDICAL DECISION MAKING: Patient presents with persistent hypoglycemia despite discontinuing insulin. Consider possible sulfonylurea versus acute on chronic renal insufficiency. No other signs of infection or infarction. The patient is otherwise well-appearing and tolerating complex hemorrhagic meals. ER COURSE: * The patient had persistent hypoglycemia in the emergency room setting. She was given an amp of dextrose, she was started on dextrose infusion and she was given octreotide. * Given the patient's persistent hypoglycemia she warrants inpatient hospitalization for further monitoring. CONSULTATION: [None] DISPOSITION PLAN: Telemetry admission Accepting care team and consultations: I discussed the current laboratory data, diagnostic imaging and emergency care provided. Admitting team: Dr. Massey Admitting team indication: Insurance directed Departure Diagnosis: Primary Impression: Hypoglycemia Additional Impression: Acute on chronic renal insufficiency Condition: Stable ANNABELLE BALBUENA MD May 28, 2019 12:27
[2019-05-28] MEDS ORDERED: ACETAMINOPHEN 325 MG TAB PO PRN (12:30)
[2019-05-28] MEDS ORDERED: ONDANSETRON 4 MG INJ IV PRN (12:30)
[2019-05-28] MEDS ORDERED: METOPROLOL 50 MG TAB PO SCH (13:00)
[2019-05-28] MEDS ORDERED: DEXTROSE 5%-0.45% NACL 1,000 ML IV SCH (13:00)
[2019-05-28] MEDS ORDERED: CITRIC ACID/NA CIT (1 MEQ/ML POSYG) PO SCH (13:00)
[2019-05-28] MEDS ORDERED: METO-429 PO (13:03)
--- NOTE | 2019-05-28 13:46 | HP ---
DATE OF ADMISSION: 05/28/2019 CHIEF COMPLAINT: Low blood sugars. HISTORY OF PRESENT ILLNESS: A 43-year-old female with poorly controlled hypertension and type 2 diab etes mellitus as well as stage IV chronic kidney disease, returned to Emergency Room with complaint o f low blood sugars. The patient was recently discharged from the hospital after she was found to hav e worsening renal function with BUN and creatinine of 60 and a 5.9. Initial evaluation revealed bloo d sugar of 47, repeat blood sugars remain low. The patient was started on dextrose drip and blood sánchez gar improved. Repeat blood sugar was 225. She denies any chest pain or shortness of breath. Blood pressure was also elevated. PAST MEDICAL HISTORY: 1. Hypertension. 2. Type 2 diabetes mellitus. 3. Stage IV chronic kidney disease. 4. Diabetic nephropathy. 5. Hyperlipidemia. 6. Congestive heart failure. MEDICATIONS PRIOR TO ADMISSION: 1. Amlodipine 5 mg daily. 2. Lipitor 20 mg at bedtime. 3. Hydralazine 50 mg t.i.d. 4. Metoprolol 50 mg daily. 5. Bicitra 30 mL 3 times daily. 6. Lasix 40 mg twice daily. 7. Glimepiride 4 mg daily. 8. Besaglar insulin 30 units at bedtime and Lispro insulin 8 units before each meal. SOCIAL HISTORY: The patient lives at home. She denies tobacco or alcohol use. PHYSICAL EXAMINATION: GENERAL: Well-developed, well-nourished female who is in no apparent distress. VITAL SIGNS: Blood pressure 178/86, pulse is 76, respiration is 20, and she is afebrile. HEENT: Extraocular muscles intact. Pupils are equal and reactive to light bilaterally. Sclerae are anicteric. Oropharynx is clear and moist. NECK: Supple, no JVD, no carotid bruits. LUNGS: Clear to auscultation bilaterally. CARDIAC: Regular rate and rhythm. No murmurs or gallops. ABDOMEN: Soft, nontender, nondistended, normoactive bowel sounds. EXTREMITIES: No clubbing, cyanosis, or edema. NEUROLOGICAL: Grossly nonfocal. ASSESSMENT: 1. A 43-year-old female with hypoglycemic reaction due to stage IV chronic kidney disease. 2. Stage IV chronic kidney disease. 3. Hypertension, poorly controlled. 4. Type 2 diabetes mellitus. 5. Diabetic nephropathy. 6. Hyperlipidemia. PLAN: Place in med/surg observation. Continue with dextrose drip, hold insulin and Glimepiride, mon itor her blood sugars closely. Dictated By: WARREN MANUEL/EVANGELISTA Conf#: [id number] DID#: [id number]
[2019-05-28] MEDS: FUROSEMIDE 40 MG TAB PO SCH ×2 (13:55→18:41)
[2019-05-28] MEDS ORDERED: DEXTROSE 50% 50 ML SYRINGE IV PRN ×2 (14:30)
[2019-05-28] MEDS ORDERED: GLUCAGON 1 MG INJ IM PRN (14:30)
[2019-05-28] MEDS ORDERED: GLUCOSE GEL 15 GRAM TUBE BUCCAL PRN (14:30)
[2019-05-28] MEDS ORDERED: GLUCOSE GEL 15 GRAM TUBE PO PRN ×2 (14:30)
[2019-05-28] MEDS ORDERED: CITRIC ACID/NA CITRATE 30 ML CUP PO SCH (16:30)
[2019-05-28 17:55] VITALS: PULSE 74
[2019-05-28] MEDS ORDERED: INSULIN ASPART [NOVOLOG] 3 ML PEN SC SCH (18:00)
[2019-05-28 20:02] VITALS: BP 178/86; RESP 20
[2019-05-28] MEDS ORDERED: AMLODIPINE 5 MG TAB PO SCH (21:00)
[2019-05-28] MEDS ORDERED: ATORVASTATIN 20 MG TAB PO SCH (21:00)
== END 2019-05-28 21:05 | disposition left against medical advice (07) ==
LOC: E/R 07:26 → 6WM 12:46 → CANRESERV 14:58 → EDBEDREQ 17:47
PROVIDERS: ADMIT Internal Medicine; ATTEND Internal Medicine
DX: E11.649 Type 2 diabetes mellitus with hypoglycemia without coma (principal); Z79.4 Long term (current) use of insulin; I13.0 Hypertensive heart and chronic kidney disease with heart failure and stage 1 through stage 4 chronic kidney disease, or unspecified chronic kidney disease; E11.22 Type 2 diabetes mellitus with diabetic chronic kidney disease; N18.4 Chronic kidney disease, stage 4 (severe); I50.9 Heart failure, unspecified
CPT/HCPCS: 36415; 71045; 80048; 82962; 84484; 85025; 93005; 96372; 96374; J2354; J7042; Z7500; Z7502; Z7610; 99217; G0378; J1815

== ENCOUNTER 2019-06-15 03:13 | Emergency (ER) | payer OTHER ==
[~2019-06-15] VITALS: Ht 157.5 cm; Wt 77.3 kg
[~2019-06-15 03:13] MED LIST changes: +AMLO5TAB4 PO; +ASPI-817 PO; +ATOR20TA38 PO; +BUME1TAB PO; +CARV12.579 PO; +EMPA25TA PO; +FER325 PO; -FURO40SO PO; +HYDR-3672 PO; +INSU100I12 SQ; +POTA10TA37 PO
[2019-06-15 03:17] VITALS: Ht 157.5 cm; Wt 77.3 kg
[2019-06-15 06:00] VITALS: BP 153/76; PULSE 84; RESP 19
--- NOTE | 2019-06-19 06:02 | DS ---
DATE OF ADMISSION: 06/15/2019 DATE OF DISCHARGE: 06/15/2019 DISCHARGE DIAGNOSES: 1. A 43-year-old female with new onset congestive heart failure exacerbation. 2. Chronic kidney disease. 3. Poorly controlled hypertension. 4. Poorly controlled type 2 diabetes mellitus. 5. Diabetic nephropathy. 6. Noncompliance with medical therapy and followups. HOSPITAL COURSE: A 43-year-old female with history of poorly controlled hypertension and ty pe 2 diabetes mellitus as well as noncompliance with medical therapy, presented with a complaint of s hortness of breath and dyspnea on exertion for several days. The patient was diagnosed with acute co ngestive heart failure exacerbation. She had not been taking any of her medications for the last 6 m onths prior to admission and failed to follow up with her primary care provider or specialists. Init ial evaluation also revealed kidney failure with a BUN of 58 and creatinine of 5.6. Potassium was el evated to 5.21. Bicarbonate was 17. Blood sugar was also elevated to 176. The patient underwent diuresis. She was seen in consultation by Dr. Sanchez. A 2D echo showed normal LV cavity size with moderate concentric left ventricular hypertrophy. Ejection fraction was estimate d at 50%. There was restrictive physiology with markedly elevated left atrial pressure, suggesting s tage III to IV diastolic dysfunction. Dr. Sanchez started her on Bicitra. She was also started on aml odipine. The patient was discharged home in a stable condition. MEDICATIONS ON DISCHARGE: 1. Bicitra 30 mL t.i.d. 2. Lasix 40 mg b.i.d. 3. Amlodipine 5 mg daily. 4. Lipitor 20 mg at bedtime. 5. Glimepiride 4mg b.i.d. 5. Basaglar insulin 30 units subcu at bedtime. 6. Hydralazine was increased to 50 mg t.i.d. 7. Humalog insulin 8 units subcu with each meal. 8. Losartan/hydrochlorothiazide was discontinued. DISCHARGE FOLLOWUP: The patient was asked to follow up with PCP, cardiology, and nephrology as outpa tient. I also discussed compliance with medications and diet. Dictated By: WARREN MANUEL/EVANGELISTA Conf#: [id number] DID#: [id number]
--- NOTE | 2019-07-02 19:19 | ERD ---
ER Documentation Chief Complaint Chief Complaint states low blood sugar about 45 minutes ago. c/o dizziness HPI 44-year-old woman here for hypoglycemia, she felt dizzy and suspected her blood sugar was low and was given something to eat and felt better. At this time she is asymptomatic and denies recent fevers or chills, no chest pain or shortness of breath, no headache or blurry vision, no dysuria. ROS All systems reviewed and are negative except as per history of present illness. Medications Home Meds Reported Medications Empagliflozin (Jardiance) 25 Mg Tablet, 12.5 MG PO BID, TAB 07/02/19 Potassium Chloride* (K-Dur*) 10 Meq Tab.prt.sr, 10 MEQ PO DAILY, TAB 07/02/19 Insulin Lispro (Humalog Kwikpen U-100) 100 Unit/1 Ml Insuln.pen, 8 UNIT SQ WITH MEALS, EA 07/02/19 Bumetanide* (Bumetanide*) 1 Mg Tablet, 1 MG PO TID, TAB TAKE 8AM,2PM,7PM. 07/02/19 Atorvastatin Calcium* (Atorvastatin Calcium*) 20 Mg Tablet, 20 MG PO QHS, #30 TAB 07/02/19 Hydralazine Hcl* (Hydralazine Hcl*) 50 Mg Tab, 50 MG PO TID, #90 TAB 07/02/19 Insulin Glargine,Hum.rec.anlog (Basaglar Kwikpen U-100) 100 Unit/1 Ml Insuln.pen, 30 UNIT SC QHS, EA 07/02/19 Amlodipine Besylate* (Norvasc*) 5 Mg Tablet, 5 MG PO DAILY, TAB 07/02/19 Discontinued Scripts Metoprolol Tartrate* (Lopressor*) 50 Mg Tab, 50 MG PO BID for 30 Days, #60 TAB 3 Refills Prov:WARREN MASSEY MD 05/28/19 Furosemide* (Lasix*) 40 Mg Tablet, 40 MG PO BID for 30 Days, TAB 3 Refills Prov:WARREN MASSEY MD 05/25/19 Citric Acid/Sodium Citrate* (Bicitra* (PEDIATRIC)) 1 Meq/Ml Soln, 30 ML PO TID for 30 Days Prov:WARREN MASSEY MD 05/25/19 Amlodipine Besylate* (Amlodipine Besylate*) 2.5 Mg Tablet, 5 MG PO HS for 30 Days, #30 TAB 3 Refills Prov:WARREN MASSEY MD 05/25/19 Glimepiride* (Glimepiride*) 4 Mg Tablet, 4 MG PO WITH BREAKFAST LUNCH for 30 Days, TAB 3 Refills Prov:WARREN MASSEY MD 05/25/19 Insulin Lispro (Humalog) 100 Unit/1 Ml Cartridge, 8 UNIT SQ AC A for 30 Days, EA 3 Refills Prov:WARREN MASSEY MD 05/25/19 Atorvastatin Calcium (Atorvastatin Calcium) 10 Mg Tablet, 20 MG PO QHS for 30 Days, #30 TAB 3 Refills Prov:WARREN MASSEY MD 05/25/19 Hydralazine Hcl* (Hydralazine Hcl*) 25 Mg Tab, 50 MG PO TID for 30 Days, #90 TAB 3 Refills Prov:WARREN MASSEY MD 05/25/19 Insulin Glargine,Hum.rec.anlog (Basaglar Kwikpen U-100) 100 Unit/1 Ml Insuln.pen, 30 UNIT SC HS for 30 Days, EA 3 Refills Prov:WARREN MASSEY MD 05/25/19 Allergies Allergies: Coded Allergies: No Known Allergy (Unverified , 07/02/19) PMhx/Soc Recent history of CHF, chronic kidney disease, diabetes mellitus with frequent episodes of hypoglycemia, hypertension, diabetic nephropathy. History of Surgery: No Anesthesia Reaction: No Hx Neurological Disorder: No Hx Respiratory Disorders: No Hx Cardiac Disorders: Yes (HTN) Hx Psychiatric Problems: No Hx Miscellaneous Medical Probl: No Hx Alcohol Use: No Hx Substance Use: No Hx Tobacco Use: No Smoking Status: Unknown if ever smoked FmHx Family History: diabetes Physical Exam Vitals Per nurse's records Physical Exam Const: No acute distress, well-developed well-nourished, afebrile Resp: Clear to auscultation bilaterally Cardio: Regular rate and rhythm, no murmurs Ext: No cyanosis, or edema Neur: Awake and alert x3, no focal deficits or facial asymmetry, pupils equal round reactive to light Psych: Normal Mood and Affect Results 24 hrs Laboratory Tests Test 06/15/19 03:23 06/15/19 04:11 06/15/19 04:50 06/15/19 05:29 Bedside Glucose 79 mg/dL 77 mg/dL 66 mg/dL 77 mg/dL Procedures/MDM Patient was placed on hospital monitor rhythm strip revealed a sinus rhythm at about 80 bpm. Blood sugar was checked and was normal. She was given a sandwich here and ate it completely went without difficulty, her mental status was reevaluated by me and is at baseline and she has no focal neurologic deficits and appears otherwise well. Blood sugar was rechecked prior to discharge and remains within normal limits, she was observed here for over 2 hours and felt much better shortly after ER arrival and will be discharged to follow-up with her PMD. Differential diagnoses considered, included but not limited to acute coronary syndrome, pulmonary embolism, aortic dissection, abdominal aortic aneurysm, sepsis, stroke, meningitis, encephalitis, pneumonia, appendicitis, cholecystitis, bowel obstruction, pyelonephritis, nephrolithiasis, cystitis, as well as metabolic, hematologic, and electrolyte abnormalities. As well as abscess, cellulitis, fractures, and dislocations. Patient feels much better at this time, and vital signs are normal, symptoms have improved. I did give strict instructions to return to the ED if symptoms continue or worsen, patient will otherwise follow-up with primary care physician. Patient understood instructions and agreed to plan. Disclaimer: Inadvertent spelling and grammatical errors are likely due to EHR/dictation software use and do not reflect on the overall quality of patient care. Also, please note that the electronic time recorded on this note does not necessarily reflect the actual time of the patient encounter. Departure Diagnosis: Primary Impression: Hypoglycemia Condition: Good Patient Instructions: Hypoglycemia (Low Blood Sugar) HA BRIONES MD Jul 02, 2019 19:19
== END 2019-06-15 06:03 | disposition home or self-care (01) ==
LOC: E/R 03:13
DX: E11.649 Type 2 diabetes mellitus with hypoglycemia without coma (principal); I10 Essential (primary) hypertension; Z79.4 Long term (current) use of insulin
CPT/HCPCS: 82962; 99282

== ENCOUNTER 2019-07-02 00:34 | Inpatient (IN) | payer OTHER ==
[~2019-07-02] VITALS: Ht 157.5 cm; Wt 82.0 kg
[2019-07-02] VITALS (25 sets, daily range): BP systolic 83–181; BP diastolic 55–99; PULSE 61–95; RESP 14–34; Ht 157.5 cm; Wt 82.0 kg
[2019-07-02] MEDS ORDERED: NITROGLYCERIN 50 MG/D5W (PMX) 250 ML ONE (00:49)
[2019-07-02] MEDS ORDERED: NITROGLYCERIN (SL) 0.4 MG TAB ONE (00:50)
[2019-07-02] MEDS ORDERED: morphine 4 MG/ML VIAL IV STA (00:53)
[2019-07-02] MEDS ORDERED: NITROGLYCERIN 50 MG/D5W (PMX) 250 ML IV STA (00:53)
[2019-07-02] MEDS ORDERED: NITROGLYCERIN (SL) 0.4 MG TAB SL PRN (01:00)
--- NOTE | 2019-07-02 01:57 | ERD ---
ER Documentation Chief Complaint Chief Complaint SOB X TODAY. HPI 44-year-old female presenting with severe shortness of breath that started yesterday and worsened today. She states she is still urinating and taking all of her medications as prescribed. She denies any associated chest pain but complains of some epigastric discomfort, worse with deep breathing. Otherwise history is limited as the patient is very short of breath, speaking in very short sentences. ROS Mid to respiratory distress Medications Home Meds Active Scripts Metoprolol Tartrate* (Lopressor*) 50 Mg Tab, 50 MG PO BID for 30 Days, #60 TAB 3 Refills Prov:WARREN MASSEY MD 05/28/19 Furosemide* (Lasix*) 40 Mg Tablet, 40 MG PO BID for 30 Days, TAB 3 Refills Prov:WARREN MASSEY MD 05/25/19 Citric Acid/Sodium Citrate* (Bicitra* (PEDIATRIC)) 1 Meq/Ml Soln, 30 ML PO TID for 30 Days Prov:WARREN MASSEY MD 05/25/19 Amlodipine Besylate* (Amlodipine Besylate*) 2.5 Mg Tablet, 5 MG PO HS for 30 Days, #30 TAB 3 Refills Prov:WARREN MASSEY MD 05/25/19 Glimepiride* (Glimepiride*) 4 Mg Tablet, 4 MG PO WITH BREAKFAST LUNCH for 30 Days, TAB 3 Refills Prov:WARREN MASSEY MD 05/25/19 Insulin Lispro (Humalog) 100 Unit/1 Ml Cartridge, 8 UNIT SQ AC A for 30 Days, EA 3 Refills Prov:WARREN MASSEY MD 05/25/19 Atorvastatin Calcium (Atorvastatin Calcium) 10 Mg Tablet, 20 MG PO QHS for 30 Days, #30 TAB 3 Refills Prov:WARREN MASSEY MD 05/25/19 Hydralazine Hcl* (Hydralazine Hcl*) 25 Mg Tab, 50 MG PO TID for 30 Days, #90 TAB 3 Refills Prov:WARREN MASSEY MD 05/25/19 Insulin Glargine,Hum.rec.anlog (Basaglar Kwikpen U-100) 100 Unit/1 Ml Insuln.pen, 30 UNIT SC HS for 30 Days, EA 3 Refills Prov:WARREN MASSEY MD 05/25/19 Allergies Allergies: Coded Allergies: No Known Allergy (Unverified , 05/28/19) PMhx/Soc History of Surgery: No Anesthesia Reaction: No Hx Neurological Disorder: No Hx Respiratory Disorders: No Hx Cardiac Disorders: Yes (Hypertension, CHF) Hx Psychiatric Problems: No Hx Miscellaneous Medical Probl: Yes (CKD, diabetes) Hx Alcohol Use: No Hx Substance Use: No Hx Tobacco Use: No Smoking Status: Never smoker FmHx Unable to obtain Physical Exam Vitals Vital Signs Date Temp Pulse Resp B/P (MAP) Pulse Ox O2 O2 Flow FiO2 Time Delivery Rate 07/02/19 97.8 83 20 128/63 100 BIPAP 4.0 03:34 (84) 07/02/19 97.8 85 21 118/77 100 BIPAP 4.0 03:30 (91) 07/02/19 113 21 154/77 100 BIPAP 03:01 (102) 07/02/19 97.8 112 17 157/88 100 BIPAP 4.0 02:49 (111) 07/02/19 118 100 100 02:37 07/02/19 74 199/82 100 BIPAP 01:50 (121) 07/02/19 113 24 183/83 100 BIPAP 01:39 (116) 07/02/19 118 100 100 01:05 07/02/19 Non 15 00:56 Rebreather 07/02/19 97.8 119 30 170/81 92 Nasal 4.0 00:44 (110) Cannula 07/02/19 Nasal 4.0 00:44 Cannula 07/02/19 97.8 120 30 176/86 75 00:38 (116) Physical Exam Const: Significant respiratory distress, speaking in very short sentences, diaphoretic Head: Atraumatic Eyes: Normal Conjunctiva ENT: Normal External Ears, Nose and Mouth. Neck: Full range of motion. No meningismus. Resp: Diminished breath sounds bilaterally with expiratory wheezing Cardio: Tachycardic with regular rhythm, no murmurs Abd: Soft, epigastric tenderness palpation with no rebound or guarding. Non distended. Normal bowel sounds Skin: No petechiae or rashes Back: No midline or flank tenderness Ext: No cyanosis, 3-4+ bilateral lower extremity pitting edema up to the groin Neur: Awake and alert Psych: Normal Mood and Affect Result Diagram: 07/02/19 0056 07/02/19 0056 Results 24 hrs Laboratory Tests Test 07/02/19 00:56 07/02/19 02:00 White Blood Count 9.6 10^3/ul Red Blood Count 3.72 10^6/ul Hemoglobin 8.6 g/dl Hematocrit 30.3 % Mean Corpuscular Volume 81.5 fl Mean Corpuscular Hemoglobin 23.1 pg Mean Corpuscular Hemoglobin Concent 28.4 g/dl Red Cell Distribution Width 17.6 % Platelet Count 418 10^3/UL Mean Platelet Volume 10.0 fl Immature Granulocytes % 0.400 % Neutrophils % 81.4 % Lymphocytes % 8.7 % Monocytes % 6.4 % Eosinophils % 2.7 % Basophils % 0.4 % Nucleated Red Blood Cells % 0.3 /100WBC Immature Granulocytes # 0.040 10^3/ul Neutrophils # 7.8 10^3/ul Lymphocytes # 0.8 10^3/ul Monocytes # 0.6 10^3/ul Eosinophils # 0.3 10^3/ul Basophils # 0.0 10^3/ul Nucleated Red Blood Cells # 0.0 10^3/ul Prothrombin Time 14.0 Sec Prothrombin Time Ratio 1.1 INR International Normalized Ratio 1.07 Activated Partial Thromboplast Time 32.1 Sec Sodium Level 141 mmol/L Potassium Level 5.3 mmol/L Chloride Level 108 mmol/L Carbon Dioxide Level 24 mmol/L Anion Gap 9 Blood Urea Nitrogen 68 mg/dl Creatinine 6.47 mg/dl Est Glomerular Filtrat Rate mL/min 7 mL/min Glucose Level 88 mg/dl Calcium Level 7.8 mg/dl Total Bilirubin 0.2 mg/dl Direct Bilirubin 0.00 mg/dl Indirect Bilirubin 0.2 mg/dl Aspartate Amino Transf (AST/SGOT) 20 IU/L Alanine Aminotransferase (ALT/SGPT) 19 IU/L Alkaline Phosphatase 102 IU/L Troponin I 0.044 ng/ml B-Type Natriuretic Peptide 93039 PG/ML Total Protein 7.2 g/dl Albumin 3.3 g/dl Globulin 3.90 g/dl Albumin/Globulin Ratio 0.84 Lipase 176 U/L Blood Gas Specimen Source Blood arterial Arterial Blood Date Drawn 07/02/2019 2:05:09 AM Arterial Blood pH (Temp corrected) 7.318 Arterial Blood pCO2 (Temp correct) 44.6 mmhg Arterial Blood pO2 (Temp corrected) 70.8 mmHG Arterial Blood HCO3 22.4 mmol/L Arterial Blood Base Excess -3.6 mmol/L Arterial Blood Oxygen Saturation 92.5 mmHG Holland Test N/A Arterial Blood Gas Puncture Site Right Brachial Arterial Blood Carboxyhemoglobin 0.1 % Arterial Blood Methemoglobin 0.5 % Blood Gas A-a O2 Differential 597.6 mmHg Oxyhemoglobin Percent 91.9 % Blood Gas Temperature 37.0 C Blood Gas Respiration Rate 16.0 Blood Gas Actual Respiration Rate 25 Blood Gas Modality MASK - BIPAP FiO2 100.0 % Blood Gas Pressure Support 10 Blood Gas IPAP/EPAP Ratio 15/5 Blood Gas Notified Whom KM Blood Gas Notified Time 07/02/2019 2:14:53 AM Current Medications Medications Dose Sig/Beckie Start Time Status Last (Trade) Ordered Route PRN Stop Time Admin Dose Reason Admin 250 ml @ ud STK-MED 07/02/19 DC Nitroglycerin ONCE .ROUTE 00:49 07/02/19 / Dextrose 00:50 25 tab STK-MED 07/02/19 DC Nitroglycerin ONCE .ROUTE 00:50 07/02/19 00:51 (Nitroglyceri n (Sl Tab) 0.4 Mg) 1 tab Q5M UP TO 3 07/02/19 07/02/19 Nitroglycerin DOSES PRN 01:00 00:58 SL CHEST (Nitroglyceri PAIN n (Sl Tab) 0.4 Mg) 250 ml @ ONCE STAT 07/02/19 07/02/19 Nitroglycerin 12 mls/hr IV 00:53 07/02/19 01:00 / Dextrose 21:42 Morphine 4 mg ONCE STAT 07/02/19 DC 07/02/19 Sulfate IV 00:53 07/02/19 01:02 (morphine) 00:55 Labetalol 20 mg ONCE ONCE 07/02/19 DC 07/02/19 HCl IV 03:30 07/02/19 03:29 (Labetalol) 03:31 Furosemide 80 mg ONCE ONCE 07/02/19 DC (Lasix) IV 03:30 07/02/19 03:31 Procedures/MDM EMERGENT LABS AND DIAGNOSTIC STUDIES: Lab Results above were reviewed and interpreted by me. CBC: no anemia or evidence of infection CMP: Elevated BUN and creatinine, consistent with known history of CKD, creatinine elevated from baseline. No evidence of clinically significant electrolyte abnormality, acidosis, hypoglycemia, liver disease, or biliary obstruction Lipase: no evidence of pancreatitis Troponin within normal limits, not indicative of cardiac ischemia BNP significantly elevated, consistent with CHF exacerbation 12-lead EKG was interpreted by Adeline Renee MD: Sinus tachycardia with short IA interval at 119 bpm Normal axis Normal intervals Anterior Q waves, lateral ST abnormality No STEMI. Radiology Results as interpreted by Radiology below were reviewed by Myrna Renee MD: Chest x-ray shows evidence of bilateral pulmonary edema Initial Nursing notes reviewed. Previous Medical Records requested via the Electronic Health Record. EMERGENCY DEPARTMENT COURSE / MEDICAL DECISION MAKING: Patient is presenting with severe respiratory distress, with exam and work-up consistent with acute CHF exacerbation and likely flash pulmonary edema. Patient treated with IV nitroglycerin high-dose infusion and BiPAP upon arrival. With this treatment, she did have significant improvement of her symptoms. Low suspicion for ACS at this time. Low suspicion for pneumonia or sepsis. Low suspicion for dissection. Labs are consistent with known history of chronic kidney disease. She is still urinating so Lasix IV given. Patient will be admitted by Dr. Arechiga to the ICU. Critical Care Time: 50 minutes Treatments/Evaluations: Close monitoring and treatment of unstable vital signs, cardiorespiratory, and neurologic status, while maintaining tight balance of fluid, respiratory, and cardiac interventions. This time includes discussing the case with the patient and the patients family. This time does not include all procedures stated elsewhere in this record. This time also includes reviewing old records, labs and radiological studies. This time includes examining and re- examining the patient. Additionally, this time also includes arranging care with admitting and consulting physicians. Departure Diagnosis: Primary Impression: Acute respiratory failure with hypoxia Additional Impressions: Acute exacerbation of CHF (congestive heart failure) Heart failure type: unspecified Qualified Codes: I50.9 - Heart failure, unspecified Hypertensive emergency Condition: Critical JACKELYN RENEE MD Jul 02, 2019 01:57
[2019-07-02] MEDS ORDERED: LABETALOL HCL 20MG INJ IV ONE (03:30)
[2019-07-02] MEDS ORDERED: FUROSEMIDE 40 MG INJ IV ONE ×2 (03:30→08:30)
[2019-07-02] MEDS ORDERED: morphine 2 MG INJ IV PRN (06:00)
[2019-07-02] MEDS ORDERED: ONDANSETRON 4 MG INJ IV PRN ×2 (06:00→08:30)
[2019-07-02] MEDS ORDERED: ACETAMINOPHEN 325 MG TAB PO PRN (06:00)
[2019-07-02] MEDS ORDERED: EMPAGLIFLOZIN 12.5 MG PO SCH (10:00)
[2019-07-02] MEDS ORDERED: ZOLPIDEM 5 MG TAB PO PRN (10:00)
[2019-07-02] MEDS ORDERED: METOPROLOL 50 MG TAB PO SCH (10:00)
[2019-07-02] MEDS ORDERED: AMLODIPINE 5 MG TAB PO SCH (10:00)
[2019-07-02] MEDS ORDERED: NA POLYST SULFON 15 GM/60 ML BTL PO ONE (10:00)
[2019-07-02] MEDS ORDERED: DEXTROSE 50% 50 ML SYRINGE IV PRN (10:30)
[2019-07-02] MEDS ORDERED: GLUCOSE GEL 15 GRAM TUBE BUCCAL PRN (10:30)
[2019-07-02] MEDS ORDERED: GLUCOSE GEL 15 GRAM TUBE PO PRN ×2 (10:30)
[2019-07-02] MEDS ORDERED: GLUCAGON 1 MG INJ IM PRN (10:30)
--- NOTE | 2019-07-02 10:44 | HP ---
DATE OF ADMISSION: 07/02/2019 CHIEF COMPLAINT: Shortness of breath. HISTORY OF PRESENT ILLNESS: A 44-year-old female with hypertension, CHF, and stage V chronic kidney disease, who presented to Emergency Room with complaints of severe shortness of breath since the day prior to admission. The patient denies chest pain. No nausea, vomiting, or diaphoresis. No cough. No fevers or chills. She has had some epigastric abdominal pain. Initial evaluation revealed acute congestive heart failure exacerbation and poorly controlled hypertension. Patient was started on ni troglycerin drip. MEDICATIONS PRIOR TO ADMISSION: 1. Lopressor. 2. Lasix. 3. Bicitra. 4. Amlodipine. 5. Glimepiride. 6. Insulin. 7. Atorvastatin. 8. Hydralazine. ALLERGIES: PATIENT HAS NO KNOWN DRUG ALLERGIES. SOCIAL HISTORY: Patient lives at home. She denies tobacco or alcohol use. PHYSICAL EXAMINATION: GENERAL: Well-developed, well-nourished, obese female who is in no apparent distress. She reports f eeling better since admission. VITAL SIGNS: Stable. She is afebrile. HEENT: Extraocular muscles intact. Pupils are equal and reactive to light bilaterally. Sclerae are anicteric. Oropharynx is clear and moist. NECK: Supple, no JVD, no carotid bruits. LUNGS: Crackles at the bases. CARDIAC: Regular rate and rhythm. No murmurs or gallops. ABDOMEN: Soft, nontender, nondistended, normoactive bowel sounds. EXTREMITIES: 3+ pitting edema in bilateral feet. NEUROLOGICAL: Nonfocal. LABORATORY DATA: WBC 8.5, hemoglobin 7.9, platelet count is 352,000. Sodium 141, potassium 5.6, chl oride 109, bicarbonate 24, BUN 68, creatinine 6.78, with estimated GFR of 7. BNP is elevated at 77,8 00. Chest x-ray shows pulmonary vascular congestion. ASSESSMENT: 1. A 44-year-old female with acute CHF exacerbation. 2. Poorly controlled hypertension. 3. Stage V chronic kidney disease approaching hemodialysis. 4. Type 2 diabetes mellitus. 5. Hyperkalemia. PLAN: 1. Admit to ICU. Continue nitroglycerin drip, resume her oral antihypertensives. 2. Start Bumex drip. 3. Cardiology and nephrology consultations are requested. Dictated By: WARREN MASSEY MD SK/NTS Conf#: [id number] DID#: [id number] CC: ALEJANDRO REMY MD; EDELMIRA ONTIVEROS MD; DEBORAH JAFFE DO;*EndCC*
[2019-07-02] MEDS ORDERED: BUMETANIDE 6 MG in DEXTROSE 5% 36 ML IV ONE ×2 (11:00→18:30)
[2019-07-02] MEDS ORDERED: NON-FORMULARY/PATIENT OWN MED (Insulin Lispro (Humalog Kwikpen U-100) 8 UNIT) SQ SCH (11:30)
--- NOTE | 2019-07-02 12:38 | CONS ---
Assessment/Plan Assessment/Plan Assessment/Plan (Daily) 1. acute hyperkalemia due to JEOVANY on CKD IV 2. Acute kidney injury on CKD IV due to Hemodyanics from CHF 3.a cute CHF exacerbation , acute on chronic, systolic and Diastolic 4.Cardiomyopathy with EF 50% 5. 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 H/O HTN 7. H/o DM II 8. H/o HL 9. Hypertnesive emergency with ongoing chest pain - Currently on NTG drip Plan: seen iNED< s/p Hyperkalemia Rx in ED, will follow up on Next labs for K Agree with Bumex gtt at 1 mg/hr, hold ACEi and other diuretics pt has full CKD work up on last admission , no need to repeat it Continue IV bumex gtt, NTG drip for HTN will give one dose Nifedipine Xl 60mg po daily one dose now for Better BP control, D/c PO amlodipine , plan is to titrate NTG drip off Continue other BP meds pt has persistent Hyperkalemia and eGFR 7 on follow up labs, I had a a detailed discussion done with her about HD initiaton if Renal function don't improve with Bumex gtt, All questions answered, she understood it and verbalized understa nding. Thanks for consultation, I will continue to follow up Consultation Date/Type/Reason Admit Date/Time Jul 02, 2019 at 03:33 Date of Consultation: Jul 02, 2019 Type of Consult NEPHROLOGY Reason for Consultation acute hyperkalemia , acute on chronic renal failure, acute fluid overload Requesting Provider: EDELMIRA ONTIVEROS MD Date/Time of Note DATE: 07/02/19 TIME: 12:38 Hx of Present Illness 44-year-old female with past medical history of hypertension, renal dysfunction who presents with progressive worsening shortness of breath over the past 2 days, and difficult to control blood pressure. Patient has noticed that when her blood pressure is elevated, she feels more short of breath and she does get intermittent chest pain. Patient shortness of breath has gotten so severe over the past month that she ambulates with a wheelchair because of shortness of breath and fatigue. she was noted to have severe CHF, BUN/Cr 68/6.47,K 5.3- received few doses of IV lasix iN ED, she required NTG drip for Chest pain and HTN emergency.renal has been consulted for acute hyperkalemia, acute on chronic renal failure with pulmonary congestion. Constitutional: no complaints Eyes: no complaints ENT: congestion, dysphagia Respiratory: pleuritic pain, shortness of breath Cardiovascular: chest pain Gastrointestinal: no complaints Genitourinary: no complaints Musculoskeletal: swelling Skin: no complaints Neurologic: no complaints Endocrine: no complaints Lymphatic: no complaints Psychological: no complaints Immunologic: no complaints Past Medical History Medical History: congestive heart failure, diabetes, high cholesterol, hypertension, other (CKD III/IV ) Home Meds Reported Medications Empagliflozin (Jardiance) 25 Mg Tablet, 12.5 MG PO BID, TAB 07/02/19 Potassium Chloride* (K-Dur*) 10 Meq Tab.prt.sr, 10 MEQ PO DAILY, TAB 07/02/19 Insulin Lispro (Humalog Kwikpen U-100) 100 Unit/1 Ml Insuln.pen, 8 UNIT SQ WITH MEALS, EA 07/02/19 Bumetanide* (Bumetanide*) 1 Mg Tablet, 1 MG PO TID, TAB TAKE 8AM,2PM,7PM. 07/02/19 Atorvastatin Calcium* (Atorvastatin Calcium*) 20 Mg Tablet, 20 MG PO QHS, #30 TAB 07/02/19 Hydralazine Hcl* (Hydralazine Hcl*) 50 Mg Tab, 50 MG PO TID, #90 TAB 07/02/19 Insulin Glargine,Hum.rec.anlog (Basaglar Kwikpen U-100) 100 Unit/1 Ml Insuln.pen, 30 UNIT SC QHS, EA 07/02/19 Amlodipine Besylate* (Norvasc*) 5 Mg Tablet, 5 MG PO DAILY, TAB 07/02/19 Discontinued Scripts Metoprolol Tartrate* (Lopressor*) 50 Mg Tab, 50 MG PO BID for 30 Days, #60 TAB 3 Refills Prov:WARREN MASSEY MD 05/28/19 Furosemide* (Lasix*) 40 Mg Tablet, 40 MG PO BID for 30 Days, TAB 3 Refills Prov:WARREN MASSEY MD 05/25/19 Citric Acid/Sodium Citrate* (Bicitra* (PEDIATRIC)) 1 Meq/Ml Soln, 30 ML PO TID for 30 Days Prov:WARREN MASSEY MD 05/25/19 Amlodipine Besylate* (Amlodipine Besylate*) 2.5 Mg Tablet, 5 MG PO HS for 30 Days, #30 TAB 3 Refills Prov:WARREN MASSEY MD 05/25/19 Glimepiride* (Glimepiride*) 4 Mg Tablet, 4 MG PO WITH BREAKFAST LUNCH for 30 Days, TAB 3 Refills Prov:WARREN MASSEY MD 05/25/19 Insulin Lispro (Humalog) 100 Unit/1 Ml Cartridge, 8 UNIT SQ AC A for 30 Days, EA 3 Refills Prov:WARREN MASSEY MD 05/25/19 Atorvastatin Calcium (Atorvastatin Calcium) 10 Mg Tablet, 20 MG PO QHS for 30 Days, #30 TAB 3 Refills Prov:WARREN MASSEY MD 05/25/19 Hydralazine Hcl* (Hydralazine Hcl*) 25 Mg Tab, 50 MG PO TID for 30 Days, #90 TAB 3 Refills Prov:WARREN MASSEY MD 05/25/19 Insulin Glargine,Hum.rec.anlog (Basaglar Kwikpen U-100) 100 Unit/1 Ml Insuln.pen, 30 UNIT SC HS for 30 Days, EA 3 Refills Prov:WARREN MASSEY MD 05/25/19 Medications Current Medications Morphine Sulfate (morphine) 2 mg Q3 PRN IV PAIN LEVEL 6-10; Start 07/02/19 at 06:00 Acetaminophen (Tylenol Tab) 650 mg PRN PRN PO ELEVATED TEMPERATURE; Start 07/02/19 at 06:00 Ondansetron HCl (Zofran Inj) 4 mg Q6H PRN IV NAUSEA; Start 07/02/19 at 08:30 Acetaminophen (Tylenol Tab) 1,000 mg Q6H PRN PO FEVER; Start 07/02/19 at 08:30 Bumetanide 6 mg/ Dextrose 60 ml @ 10 mls/hr Q6H ONCE IV Last administered on 07/02/19at 11:19; Admin Dose 10 MLS/HR; Start 07/02/19 at 11:00; Stop 07/02/19 at 16:59 Zolpidem Tartrate (Ambien) 5 mg HS MAY REPEAT X 1 PRN PO INSOMNIA; Start 07/02/19 at 10:00 Amlodipine Besylate (Norvasc) 5 mg DAILY PO Last administered on 07/02/19at 10:12; Admin Dose 5 MG; Start 07/02/19 at 10:00 Atorvastatin Calcium (Lipitor) 20 mg QHS PO ; Start 07/02/19 at 21:00 Hydralazine HCl (Apresoline) 50 mg TID PO Last administered on 07/02/19at 12:15; Admin Dose 50 MG; Start 07/02/19 at 13:00 Insulin Glargine (Lantus) 30 units QHS SC ; Start 07/02/19 at 21:00 Miscellaneous Information 12.5 mg BID PO ; Start 07/02/19 at 10:00; Status UNV Miscellaneous Information 8 unit WITH MEALS SQ ; Start 07/02/19 at 11:30; Status UNV Metoprolol Tartrate (Lopressor) 50 mg BID PO Last administered on 07/02/19at 10:11; Admin Dose 50 MG; Start 07/02/19 at 10:00 Miscellaneous Information 1 ea NOTE XX ; Start 07/02/19 at 10:30 Glucose (Glutose) 15 gm Q15M PRN PO DECREASED GLUCOSE; Start 07/02/19 at 10:30 Glucose (Glutose) 22.5 gm Q15M PRN PO DECREASED GLUCOSE; Start 07/02/19 at 10:30 Dextrose (D50w Syringe) 25 ml Q15M PRN IV DECREASED GLUCOSE; Start 07/02/19 at 10:30 Dextrose (D50w Syringe) 50 ml Q15M PRN IV DECREASED GLUCOSE; Start 07/02/19 at 10:30 Glucagon (Glucagen) 1 mg Q15M PRN IM DECREASED GLUCOSE; Start 07/02/19 at 10:30 Glucose (Glutose) 15 gm Q15M PRN BUCCAL DECREASED GLUCOSE; Start 07/02/19 at 10:30 Hydralazine HCl (Apresoline) 10 mg Q4H PRN IV ELEVATED BLOOD PRESSURE; Start 07/02/19 at 11:30 Allergies: Coded Allergies: No Known Allergy (Unverified , 07/02/19) Past Surgical History Past Surgical Hx: no surgical history Family History Significant Family History: no pertinent family hx Social History Alcohol Use: none Smoking Status: Never smoker Drug Use: none Exam/Review of Systems Exam Vitals Vital Signs Date Temp Pulse Resp B/P (MAP) Pulse Ox O2 O2 Flow FiO2 Time Delivery Rate 07/02/19 97.6 89 22 181/98 99 Nasal 5.0 12:00 (125) Cannula 07/02/19 50 07:30 Constitutional: distress Head: normocephalic Eyes: nl conjunctiva ENMT: nl external ears & nose Neck: supple, jvd Respiratory: crackles/rales, diminished breath sounds Cardiovascular: regular rate and rhythm, nl pulses Gastrointestinal: soft, non-tender Musculoskeletal: muscle weakness, swelling (2-3+ LE pitting edema ) Extremities: normal pulses Neurological: GEOMETRY TUTOR II-XII intact, nl mental status, nl speech, nl strength Skin: nl turgor Lymph: nl lymph nodes Results Result Diagram: 07/02/1913 07/02/19 0713 Results 24hrs Laboratory Tests Test 07/02/19 00:56 07/02/19 02:00 07/02/19 07:13 White Blood Count 9.6 8.5 Red Blood Count 3.72 L 3.45 L Hemoglobin 8.6 L 7.9 L Hematocrit 30.3 L 27.8 L Mean Corpuscular Volume 81.5 L 80.6 L Mean Corpuscular Hemoglobin 23.1 L 22.9 L Mean Corpuscular 28.4 L 28.4 L Hemoglobin Concent Red Cell Distribution Width 17.6 H 17.7 H Platelet Count 418 H 352 Mean Platelet Volume 10.0 9.5 Immature Granulocytes % 0.400 0.500 H Neutrophils % 81.4 H 82.6 H Lymphocytes % 8.7 L 8.0 L Monocytes % 6.4 6.9 Eosinophils % 2.7 1.4 Basophils % 0.4 0.6 Nucleated Red Blood Cells % 0.3 H 0.2 H Immature Granulocytes # 0.040 H 0.040 H Neutrophils # 7.8 H 7.0 Lymphocytes # 0.8 0.7 L Monocytes # 0.6 0.6 Eosinophils # 0.3 0.1 Basophils # 0.0 0.1 Nucleated Red Blood Cells # 0.0 0.0 Prothrombin Time 14.0 Prothrombin Time Ratio 1.1 INR International 1.07 Normalized Ratio Activated Partial Thromboplast 32.1 Time Sodium Level 141 141 Potassium Level 5.3 H 5.6 H Chloride Level 108 109 Carbon Dioxide Level 24 24 Anion Gap 9 8 Blood Urea Nitrogen 68 H 68 H Creatinine 6.47 H 6.78 H Est Glomerular Filtrat 7 L 7 L Rate mL/min Glucose Level 88 80 Calcium Level 7.8 L 7.6 L Total Bilirubin 0.2 0.2 Direct Bilirubin 0.00 0.00 Indirect Bilirubin 0.2 0.2 Aspartate Amino 20 18 Transf (AST/SGOT) Alanine 19 18 Aminotransferase (ALT/SGPT) Alkaline Phosphatase 102 86 Troponin I 0.044 0.057 B-Type Natriuretic Peptide 48304 H 21452 H Total Protein 7.2 6.7 Albumin 3.3 3.1 L Globulin 3.90 H 3.60 H Albumin/Globulin Ratio 0.84 0.86 Lipase 176 Blood Gas Specimen Source Blood arterial Arterial Blood Date Drawn 07/02/2019 2:05:09 AM Arterial Blood pH 7.318 L (Temp corrected) Arterial Blood pCO2 44.6 (Temp correct) Arterial Blood pO2 70.8 L (Temp corrected) Arterial Blood HCO3 22.4 Arterial Blood Base Excess -3.6 L Arterial Blood 92.5 L Oxygen Saturation Holland Test N/A Arterial Blood Gas Right Brachial Puncture Site Arterial 0.1 Blood Carboxyhemoglobin Arterial Blood Methemoglobin 0.5 Blood Gas A-a O2 Differential 597.6 H Oxyhemoglobin Percent 91.9 L Blood Gas Temperature 37.0 Blood Gas Respiration Rate 16.0 Blood Gas Actual 25 Respiration Rate Blood Gas Modality MASK - BIPAP FiO2 100.0 Blood Gas Pressure Support 10 Blood Gas IPAP/EPAP Ratio 15/5 Blood Gas Notified Whom KM Blood Gas Notified Time 07/02/2019 2:14:53 AM Medications Medication Current Medications Morphine Sulfate (morphine) 2 mg Q3 PRN IV PAIN LEVEL 6-10; Start 07/02/19 at 06:00 Acetaminophen (Tylenol Tab) 650 mg PRN PRN PO ELEVATED TEMPERATURE; Start 07/02/19 at 06:00 Ondansetron HCl (Zofran Inj) 4 mg Q6H PRN IV NAUSEA; Start 07/02/19 at 08:30 Acetaminophen (Tylenol Tab) 1,000 mg Q6H PRN PO FEVER; Start 07/02/19 at 08:30 Bumetanide 6 mg/ Dextrose 60 ml @ 10 mls/hr Q6H ONCE IV Last administered on 07/02/19at 11:19; Admin Dose 10 MLS/HR; Start 07/02/19 at 11:00; Stop 07/02/19 at 16:59 Zolpidem Tartrate (Ambien) 5 mg HS MAY REPEAT X 1 PRN PO INSOMNIA; Start 07/02/19 at 10:00 Amlodipine Besylate (Norvasc) 5 mg DAILY PO Last administered on 07/02/19at 10:12; Admin Dose 5 MG; Start 07/02/19 at 10:00 Atorvastatin Calcium (Lipitor) 20 mg QHS PO ; Start 07/02/19 at 21:00 Hydralazine HCl (Apresoline) 50 mg TID PO Last administered on 07/02/19at 12:15; Admin Dose 50 MG; Start 07/02/19 at 13:00 Insulin Glargine (Lantus) 30 units QHS SC ; Start 07/02/19 at 21:00 Miscellaneous Information 12.5 mg BID PO ; Start 07/02/19 at 10:00; Status UNV Miscellaneous Information 8 unit WITH MEALS SQ ; Start 07/02/19 at 11:30; Status UNV Metoprolol Tartrate (Lopressor) 50 mg BID PO Last administered on 07/02/19at 10:11; Admin Dose 50 MG; Start 07/02/19 at 10:00 Miscellaneous Information 1 ea NOTE XX ; Start 07/02/19 at 10:30 Glucose (Glutose) 15 gm Q15M PRN PO DECREASED GLUCOSE; Start 07/02/19 at 10:30 Glucose (Glutose) 22.5 gm Q15M PRN PO DECREASED GLUCOSE; Start 07/02/19 at 10:30 Dextrose (D50w Syringe) 25 ml Q15M PRN IV DECREASED GLUCOSE; Start 07/02/19 at 10:30 Dextrose (D50w Syringe) 50 ml Q15M PRN IV DECREASED GLUCOSE; Start 07/02/19 at 10:30 Glucagon (Glucagen) 1 mg Q15M PRN IM DECREASED GLUCOSE; Start 07/02/19 at 10:30 Glucose (Glutose) 15 gm Q15M PRN BUCCAL DECREASED GLUCOSE; Start 07/02/19 at 10:30 Hydralazine HCl (Apresoline) 10 mg Q4H PRN IV ELEVATED BLOOD PRESSURE; Start 07/02/19 at 11:30 ALEJANDRO REMY MD Jul 02, 2019 12:38
--- NOTE | 2019-07-02 12:55 | CONS ---
Assessment/Plan Cardiology NYHA: II Heart Failure Type: Acute on Chronic Heart Failure Type: Both Assessment/Plan Hospital Course (Demo Recall) Acute decompensated systolic and diastolic congestive heart failure Cardiomyopathy with left ventricular ejection fraction 50% Chronic kidney disease Hypertension urgency Diabetes Patient with progressively worsening shortness of breath, patient tells me she is been ambulate with a wheelchair over the past month because of her symptoms. Serial cardiac enzymes are negative, ECG with anteroseptal Q waves Patient currently on Bumex drip, diuretics being managed by nephrology Would switch metoprolol to carvedilol given cardiomyopathy and for better blood pressure control Based on clinical course, would consider further ischemic work-up Consultation Date/Type/Reason Admit Date/Time Jul 02, 2019 at 03:33 Type of Consult Cardiology Reason for Consultation Shortness of breath and hypertension Date/Time of Note DATE: 07/02/19 TIME: 12:49 Hx of Present Illness This is a 44-year-old female with past medical history of hypertension, renal dysfunction who presents with progressive worsening shortness of breath over the past 2 days, and difficult to control blood pressure. Patient has noticed that when her blood pressure is elevated, she feels more short of breath and she does get intermittent chest pain. She denies any dizziness or lightheadedness currently. Patient shortness of breath has gotten so severe over the past month that she ambulates with a wheelchair because of shortness of breath and fatigue. She currently denies any chest pain, her shortness breath has improved. She denies any dizziness or lightheadedness. Denies any fevers or chills. 12 point review of systems was performed with all pertinent positives and negatives mentioned above and all else is negative Past Medical History Medical History: congestive heart failure, diabetes, hypertension, renal disease Home Meds Reported Medications Empagliflozin (Jardiance) 25 Mg Tablet, 12.5 MG PO BID, TAB 07/02/19 Potassium Chloride* (K-Dur*) 10 Meq Tab.prt.sr, 10 MEQ PO DAILY, TAB 07/02/19 Insulin Lispro (Humalog Kwikpen U-100) 100 Unit/1 Ml Insuln.pen, 8 UNIT SQ WITH MEALS, EA 07/02/19 Bumetanide* (Bumetanide*) 1 Mg Tablet, 1 MG PO TID, TAB TAKE 8AM,2PM,7PM. 07/02/19 Atorvastatin Calcium* (Atorvastatin Calcium*) 20 Mg Tablet, 20 MG PO QHS, #30 TAB 07/02/19 Hydralazine Hcl* (Hydralazine Hcl*) 50 Mg Tab, 50 MG PO TID, #90 TAB 07/02/19 Insulin Glargine,Hum.rec.anlog (Basaglar Kwikpen U-100) 100 Unit/1 Ml Insuln.pen, 30 UNIT SC QHS, EA 07/02/19 Amlodipine Besylate* (Norvasc*) 5 Mg Tablet, 5 MG PO DAILY, TAB 07/02/19 Discontinued Scripts Metoprolol Tartrate* (Lopressor*) 50 Mg Tab, 50 MG PO BID for 30 Days, #60 TAB 3 Refills Prov:WARREN MASSEY MD 05/28/19 Furosemide* (Lasix*) 40 Mg Tablet, 40 MG PO BID for 30 Days, TAB 3 Refills Prov:WARREN MASSEY MD 05/25/19 Citric Acid/Sodium Citrate* (Bicitra* (PEDIATRIC)) 1 Meq/Ml Soln, 30 ML PO TID for 30 Days Prov:WARREN MASSEY MD 05/25/19 Amlodipine Besylate* (Amlodipine Besylate*) 2.5 Mg Tablet, 5 MG PO HS for 30 Days, #30 TAB 3 Refills Prov:WARREN MASSEY MD 05/25/19 Glimepiride* (Glimepiride*) 4 Mg Tablet, 4 MG PO WITH BREAKFAST LUNCH for 30 Days, TAB 3 Refills Prov:WARREN MASSEY MD 05/25/19 Insulin Lispro (Humalog) 100 Unit/1 Ml Cartridge, 8 UNIT SQ AC A for 30 Days, EA 3 Refills Prov:WARREN MASSEY MD 05/25/19 Atorvastatin Calcium (Atorvastatin Calcium) 10 Mg Tablet, 20 MG PO QHS for 30 Days, #30 TAB 3 Refills Prov:WARREN MASSEY MD 05/25/19 Hydralazine Hcl* (Hydralazine Hcl*) 25 Mg Tab, 50 MG PO TID for 30 Days, #90 TAB 3 Refills Prov:WARREN MASSEY MD 05/25/19 Insulin Glargine,Hum.rec.anlog (Basaglar Kwikpen U-100) 100 Unit/1 Ml Insuln.pen, 30 UNIT SC HS for 30 Days, EA 3 Refills Prov:WARREN MASSEY MD 05/25/19 Medications Current Medications Morphine Sulfate (morphine) 2 mg Q3 PRN IV PAIN LEVEL 6-10; Start 07/02/19 at 06:00 Acetaminophen (Tylenol Tab) 650 mg PRN PRN PO ELEVATED TEMPERATURE; Start 07/02/19 at 06:00 Ondansetron HCl (Zofran Inj) 4 mg Q6H PRN IV NAUSEA; Start 07/02/19 at 08:30 Acetaminophen (Tylenol Tab) 1,000 mg Q6H PRN PO FEVER; Start 07/02/19 at 08:30 Bumetanide 6 mg/ Dextrose 60 ml @ 10 mls/hr Q6H ONCE IV Last administered on 07/02/19at 11:19; Admin Dose 10 MLS/HR; Start 07/02/19 at 11:00; Stop 07/02/19 at 16:59 Zolpidem Tartrate (Ambien) 5 mg HS MAY REPEAT X 1 PRN PO INSOMNIA; Start 07/02/19 at 10:00 Amlodipine Besylate (Norvasc) 5 mg DAILY PO Last administered on 07/02/19at 10:12; Admin Dose 5 MG; Start 07/02/19 at 10:00 Atorvastatin Calcium (Lipitor) 20 mg QHS PO ; Start 07/02/19 at 21:00 Hydralazine HCl (Apresoline) 50 mg TID PO Last administered on 07/02/19at 12:15; Admin Dose 50 MG; Start 07/02/19 at 13:00 Insulin Glargine (Lantus) 30 units QHS SC ; Start 07/02/19 at 21:00 Miscellaneous Information 12.5 mg BID PO ; Start 07/02/19 at 10:00; Status UNV Miscellaneous Information 8 unit WITH MEALS SQ ; Start 07/02/19 at 11:30; Status UNV Metoprolol Tartrate (Lopressor) 50 mg BID PO Last administered on 07/02/19at 1 0:11; Admin Dose 50 MG; Start 07/02/19 at 10:00 Miscellaneous Information 1 ea NOTE XX ; Start 07/02/19 at 10:30 Glucose (Glutose) 15 gm Q15M PRN PO DECREASED GLUCOSE; Start 07/02/19 at 10:30 Glucose (Glutose) 22.5 gm Q15M PRN PO DECREASED GLUCOSE; Start 07/02/19 at 10:30 Dextrose (D50w Syringe) 25 ml Q15M PRN IV DECREASED GLUCOSE; Start 07/02/19 at 10:30 Dextrose (D50w Syringe) 50 ml Q15M PRN IV DECREASED GLUCOSE; Start 07/02/19 at 10:30 Glucagon (Glucagen) 1 mg Q15M PRN IM DECREASED GLUCOSE; Start 07/02/19 at 10:30 Glucose (Glutose) 15 gm Q15M PRN BUCCAL DECREASED GLUCOSE; Start 07/02/19 at 10 :30 Hydralazine HCl (Apresoline) 10 mg Q4H PRN IV ELEVATED BLOOD PRESSURE; Start 07/02/19 at 11:30 Allergies: Coded Allergies: No Known Allergy (Unverified , 07/02/19) Past Surgical History Past Surgical Hx: no surgical history Family History Significant Family History: no pertinent family hx Social History Smoking Status: Never smoker Exam/Review of Systems Vital Signs Vitals Vital Signs Date Temp Pulse Resp B/P (MAP) Pulse Ox O2 O2 Flow FiO2 Time Delivery Rate 07/02/19 97.6 89 22 181/98 99 Nasal 5.0 12:00 (125) Cannula 07/02/19 50 07:30 Exam Constitutional: alert, oriented (Obese, no apparent distress) Head: normocephalic Respiratory: crackles/rales (No wheezing) Cardiovascular: regular rate and rhythm (S1-S2 heard) Gastrointestinal: soft, non-tender, bowel sounds Extremities: edema Labs Result Diagram: 07/02/19 0713 07/02/19 0713 Results 24hrs Laboratory Tests Test 07/02/19 00:56 07/02/19 02:00 07/02/19 07:13 White Blood Count 9.6 8.5 Red Blood Count 3.72 L 3.45 L Hemoglobin 8.6 L 7.9 L Hematocrit 30.3 L 27.8 L Mean Corpuscular Volume 81.5 L 80.6 L Mean Corpuscular Hemoglobin 23.1 L 22.9 L Mean Corpuscular 28.4 L 28.4 L Hemoglobin Concent Red Cell Distribution Width 17.6 H 17.7 H Platelet Count 418 H 352 Mean Platelet Volume 10.0 9.5 Immature Granulocytes % 0.400 0.500 H Neutrophils % 81.4 H 82.6 H Lymphocytes % 8.7 L 8.0 L Monocytes % 6.4 6.9 Eosinophils % 2.7 1.4 Basophils % 0.4 0.6 Nucleated Red Blood Cells % 0.3 H 0.2 H Immature Granulocytes # 0.040 H 0.040 H Neutrophils # 7.8 H 7.0 Lymphocytes # 0.8 0.7 L Monocytes # 0.6 0.6 Eosinophils # 0.3 0.1 Basophils # 0.0 0.1 Nucleated Red Blood Cells # 0.0 0.0 Prothrombin Time 14.0 Prothrombin Time Ratio 1.1 INR International 1.07 Normalized Ratio Activated Partial Thromboplast 32.1 Time Sodium Level 141 141 Potassium Level 5.3 H 5.6 H Chloride Level 108 109 Carbon Dioxide Level 24 24 Anion Gap 9 8 Blood Urea Nitrogen 68 H 68 H Creatinine 6.47 H 6.78 H Est Glomerular Filtrat 7 L 7 L Rate mL/min Glucose Level 88 80 Calcium Level 7.8 L 7.6 L Total Bilirubin 0.2 0.2 Direct Bilirubin 0.00 0.00 Indirect Bilirubin 0.2 0.2 Aspartate Amino 20 18 Transf (AST/SGOT) Alanine 19 18 Aminotransferase (ALT/SGPT) Alkaline Phosphatase 102 86 Troponin I 0.044 0.057 B-Type Natriuretic Peptide 85290 H 57623 H Total Protein 7.2 6.7 Albumin 3.3 3.1 L Globulin 3.90 H 3.60 H Albumin/Globulin Ratio 0.84 0.86 Lipase 176 Blood Gas Specimen Source Blood arterial Arterial Blood Date Drawn 07/02/2019 2:05:09 AM Arterial Blood pH 7.318 L (Temp corrected) Arterial Blood pCO2 44.6 (Temp correct) Arterial Blood pO2 70.8 L (Temp corrected) Arterial Blood HCO3 22.4 Arterial Blood Base Excess -3.6 L Arterial Blood 92.5 L Oxygen Saturation Holland Test N/A Arterial Blood Gas Right Brachial Puncture Site Arterial 0.1 Blood Carboxyhemoglobin Arterial Blood Methemoglobin 0.5 Blood Gas A-a O2 Differential 597.6 H Oxyhemoglobin Percent 91.9 L Blood Gas Temperature 37.0 Blood Gas Respiration Rate 16.0 Blood Gas Actual 25 Respiration Rate Blood Gas Modality MASK - BIPAP FiO2 100.0 Blood Gas Pressure Support 10 Blood Gas IPAP/EPAP Ratio 15/5 Blood Gas Notified Whom KM Blood Gas Notified Time 07/02/2019 2:14:53 AM Imaging Imaging ECG demonstrates sinus tachycardia at 119 bpm, QRS 82 ms, anteroseptal Q waves, nonspecific ST abnormalities Medications Medications Current Medications Morphine Sulfate (morphine) 2 mg Q3 PRN IV PAIN LEVEL 6-10; Start 07/02/19 at 06:00 Acetaminophen (Tylenol Tab) 650 mg PRN PRN PO ELEVATED TEMPERATURE; Start 07/02/19 at 06:00 Ondansetron HCl (Zofran Inj) 4 mg Q6H PRN IV NAUSEA; Start 07/02/19 at 08:30 Acetaminophen (Tylenol Tab) 1,000 mg Q6H PRN PO FEVER; Start 07/02/19 at 08:30 Bumetanide 6 mg/ Dextrose 60 ml @ 10 mls/hr Q6H ONCE IV Last administered on 07/02/19at 11:19; Admin Dose 10 MLS/HR; Start 07/02/19 at 11:00; Stop 07/02/19 at 16:59 Zolpidem Tartrate (Ambien) 5 mg HS MAY REPEAT X 1 PRN PO INSOMNIA; Start 07/02/19 at 10:00 Amlodipine Besylate (Norvasc) 5 mg DAILY PO Last administered on 07/02/19at 10:12; Admin Dose 5 MG; Start 07/02/19 at 10:00 Atorvastatin Calcium (Lipitor) 20 mg QHS PO ; Start 07/02/19 at 21:00 Hydralazine HCl (Apresoline) 50 mg TID PO Last administered on 07/02/19at 12:15; Admin Dose 50 MG; Start 07/02/19 at 13:00 Insulin Glargine (Lantus) 30 units QHS SC ; Start 07/02/19 at 21:00 Miscellaneous Information 12.5 mg BID PO ; Start 07/02/19 at 10:00; Status UNV Miscellaneous Information 8 unit WITH MEALS SQ ; Start 07/02/19 at 11:30; Status UNV Metoprolol Tartrate (Lopressor) 50 mg BID PO Last administered on 07/02/19at 10:11; Admin Dose 50 MG; Start 07/02/19 at 10:00 Miscellaneous Information 1 ea NOTE XX ; Start 07/02/19 at 10:30 Glucose (Glutose) 15 gm Q15M PRN PO DECREASED GLUCOSE; Start 07/02/19 at 10:30 Glucose (Glutose) 22.5 gm Q15M PRN PO DECREASED GLUCOSE; Start 07/02/19 at 10:30 Dextrose (D50w Syringe) 25 ml Q15M PRN IV DECREASED GLUCOSE; Start 07/02/19 at 10:30 Dextrose (D50w Syringe) 50 ml Q15M PRN IV DECREASED GLUCOSE; Start 07/02/19 at 10:30 Glucagon (Glucagen) 1 mg Q15M PRN IM DECREASED GLUCOSE; Start 07/02/19 at 10:30 Glucose (Glutose) 15 gm Q15M PRN BUCCAL DECREASED GLUCOSE; Start 07/02/19 at 10:30 Hydralazine HCl (Apresoline) 10 mg Q4H PRN IV ELEVATED BLOOD PRESSURE; Start 07/02/19 at 11:30 Gideon Petersen DO Jul 02, 2019 12:55
[2019-07-02] MEDS ORDERED: NIFEdipine (XL) 60 MG TAB PO ONE (13:00)
[2019-07-02] MEDS: hydrALAzine 20 MG INJ IV PRN (16:38)
[2019-07-02] MEDS: INSULIN ASPART [NOVOLOG] 3 ML PEN SC SCH ×2 (17:25→21:00)
[2019-07-02] MEDS ORDERED: LORAZEPAM 1 MG TAB PO PRN (17:30)
[2019-07-02] MEDS ORDERED: INSULIN ASPART [NOVOLOG] 3 ML PEN SC SCH (17:35)
[2019-07-02] MEDS: INSULIN GLARGINE [LANTus] (100 UNITS/ML) SYG SC SCH (21:00)
[2019-07-02] MEDS ORDERED: INSULIN GLARGINE [LANTus] (100 UNITS/ML) SYG SC SCH (21:00)
[2019-07-02] MEDS: ACETAMINOPHEN 500 MG TAB PO PRN (21:11)
[2019-07-02] MEDS: ATORVASTATIN 20 MG TAB PO SCH (21:12)
[2019-07-02] MEDS ORDERED: BUMETANIDE 12 MG in DEXTROSE 5% 72 ML IV ONE (23:00)
[2019-07-03] VITALS (17 sets, daily range): BP systolic 86–118; BP diastolic 55–75; PULSE 61–73; RESP 15–26
[2019-07-03] MEDS: ACCU-CHEK XX SCH (02:00)
[2019-07-03] MEDS: INSULIN ASPART [NOVOLOG] 3 ML PEN SC SCH ×4 (07:35→21:00)
--- NOTE | 2019-07-03 08:01 | CONS ---
Assessment/Plan Cardiology NYHA: II Heart Failure Type: Acute on Chronic Heart Failure Type: Both Assessment/Plan Assessment/Plan (Daily) Assessment Acute decompensated systolic and diastolic congestive heart failure Cardiomyopathy with left ventricular ejection fraction 50% Chronic kidney disease Hypertension urgency Diabetes Plan: Stress testing today Consultation Date/Type/Reason Admit Date/Time Jul 02, 2019 at 03:33 Initial Consult Date 07/02/19 Type of Consult Cardiology Requesting Provider: EDELMIRA ONTIVEROS MD Date/Time of Note DATE: 07/03/19 TIME: 08:00 24 HR Interval Summary Free Text/Dictation no chest pain, no sob Detailed Summary Respiratory: no complaints Cardiovascular: no complaints Gastrointestinal: no complaints Musculoskeletal: no complaints Skin: no complaints Neurologic: no complaints Exam/Review of Systems Vital Signs Vitals Vital Signs Date Temp Pulse Resp B/P (MAP) Pulse Ox O2 O2 Flow FiO2 Time Delivery Rate 07/03/19 98 4.0 33 05:00 07/03/19 98.2 67 16 116/64 05:00 (81) 07/02/19 Nasal 20:00 Cannula Intake and Output 07/02/19 07/02/19 07/03/19 1515:00 23:00 07:00 IntakeIntake Total 540 ml 360 ml OutputOutput Total 850 ml 350 ml BalanceBalance -310 ml 10 ml Exam Constitutional: alert, oriented Head: normocephalic, atraumatic Neck: jvd Respiratory: diminished breath sounds Cardiovascular: regular rate and rhythm Gastrointestinal: soft Musculoskeletal: nl extremities to inspection Extremities: normal pulses Labs Result Diagram: 07/03/19 0539 07/03/19 0538 Results 24hrs Laboratory Tests Test 07/02/19 17:31 07/02/19 20:08 07/02/19 22:25 07/03/19 05:38 Bedside Glucose 81 152 157 Sodium Level 138 Potassium Level 5.6 H Chloride Level 108 Carbon Dioxide Level 22 Anion Gap 8 Blood Urea Nitrogen 76 H Creatinine 6.98 H Est Glomerular Filtrat 6 L Rate mL/min Glucose Level 92 Calcium Level 7.3 L Triglycerides Level 61 Cholesterol Level 89 L LDL Cholesterol, 29 Calculated HDL Cholesterol 48 Cholesterol/HDL Ratio 1.8 Test 07/03/19 05:39 White Blood Count 5.5 # Red Blood Count 3.31 L Hemoglobin 7.6 L Hematocrit 26.9 L Mean Corpuscular 81.3 L Volume Mean Corpuscular 23.0 L Hemoglobin Mean Corpuscular 28.3 L Hemoglobin Concent Red Cell Distribution 17.4 H Width Platelet Count 329 Mean Platelet Volume 10.0 Immature Granulocytes 0.400 % Neutrophils % 80.6 H Lymphocytes % 11.8 L Monocytes % 6.6 Eosinophils % 0.2 Basophils % 0.4 Nucleated Red Blood 0.5 H Cells % Immature Granulocytes 0.020 # Neutrophils # 4.4 Lymphocytes # 0.7 L Monocytes # 0.4 Eosinophils # 0.0 Basophils # 0.0 Nucleated Red Blood 0.0 Cells # Hemoglobin A1c 7.7 H Medications Medications Current Medications Morphine Sulfate (morphine) 2 mg Q3 PRN IV PAIN LEVEL 6-10; Start 07/02/19 at 06:00 Ondansetron HCl (Zofran Inj) 4 mg Q6H PRN IV NAUSEA; Start 07/02/19 at 08:30 Acetaminophen (Tylenol Tab) 1,000 mg Q6H PRN PO FEVER Last administered on 07/02/19at 21:11; Admin Dose 1,000 MG; Start 07/02/19 at 08:30 Zolpidem Tartrate (Ambien) 5 mg HS MAY REPEAT X 1 PRN PO INSOMNIA; Start 07/02/19 at 10:00 Atorvastatin Calcium (Lipitor) 20 mg QHS PO Last administered on 07/02/19at 21:12; Admin Dose 20 MG; Start 07/02/19 at 21:00 Hydralazine HCl (Apresoline) 50 mg TID PO Last administered on 07/02/19at 21:12; Admin Dose 50 MG; Start 07/02/19 at 13:00 Miscellaneous Information 1 ea NOTE XX ; Start 07/02/19 at 10:30 Glucose (Glutose) 15 gm Q15M PRN PO DECREASED GLUCOSE; Start 07/02/19 at 10:30 Glucose (Glutose) 22.5 gm Q15M PRN PO DECREASED GLUCOSE; Start 07/02/19 at 10:30 Dextrose (D50w Syringe) 25 ml Q15M PRN IV DECREASED GLUCOSE; Start 07/02/19 at 10:30 Dextrose (D50w Syringe) 50 ml Q15M PRN IV DECREASED GLUCOSE; Start 07/02/19 at 10:30 Glucagon (Glucagen) 1 mg Q15M PRN IM DECREASED GLUCOSE; Start 07/02/19 at 10:30 Glucose (Glutose) 15 gm Q15M PRN BUCCAL DECREASED GLUCOSE; Start 07/02/19 at 10:30 Hydralazine HCl (Apresoline) 10 mg Q4H PRN IV ELEVATED BLOOD PRESSURE Last administered on 07/02/19at 16:38; Admin Dose 10 MG; Start 07/02/19 at 11:30 Carvedilol (Coreg) 12.5 mg BID PO Last administered on 07/02/19at 21:12; Admin Dose 12.5 MG; Start 07/02/19 at 13:00 Nifedipine (Procardia Xl) 60 mg DAILY PO ; Start 07/03/19 at 09:00 Diagnostic Test (Pha) (Accu-Chek) 1 ea 02 XX ; Start 07/03/19 at 02:00 Insulin Aspart (Novolog Insulin Pen) NOVOLOG *MILD* ALGORITHM WITH MEALS BEDTI ME SC ; Start 07/02/19 at 17:35 Lorazepam (Ativan) 1 mg Q8H PRN PO ANXIETY; Start 07/02/19 at 17:30 Insulin Glargine (Lantus) 30 units QHS SC ; Start 07/02/19 at 21:00 Bumetanide 12 mg/ Dextrose/Water 120 ml @ 10 mls/hr Q12H ONCE IV Last administered on 07/03/19at 00:48; Admin Dose 10 MLS/HR; Start 07/02/19 at 23:00; Stop 07/03/19 at 10:59 JULIA ROWELL MD Jul 03, 2019 08:01
[2019-07-03] MEDS: NIFEdipine (XL) 60 MG TAB PO SCH (08:09)
--- NOTE | 2019-07-03 11:13 | CONS ---
Assessment/Plan Assessment/Plan Assessment/Plan (Daily) 1. acute hyperkalemia due to JEOVANY on CKD IV 2. Acute kidney injury on CKD IV due to Hemodyanics from CHF 3.a cute CHF exacerbation , acute on chronic, systolic and Diastolic 4.Cardiomyopathy with EF 50% 5. 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 H/O HTN 7. H/o DM II 8. H/o HL 9. Hypertnesive emergency with ongoing chest pain - Currently on NTG drip Plan: BUN/Cr continues to rise, Not making adequate urine, failed bumex gtt, plan for HD initiation today, will request Dr. haley to place juan HD catheter Hold ACEi and other diuretics pt has full CKD work up on last admission , no need to repeat it on NTG drip for HTN emergency and chest pain , continue Nifedipine XL now and Continue other BP meds Plan for HD x 2 hr today, 3 hr tomorrow will follow up Consultation Date/Type/Reason Admit Date/Time Jul 02, 2019 at 03:33 Initial Consult Date 07/02/19 Type of Consult NEPHROLOGY Requesting Provider: EDELMIRA ONTIVEROS MD Date/Time of Note DATE: 07/03/19 TIME: 11:13 Exam/Review of Systems Exam Vitals Vital Signs Date Temp Pulse Resp B/P (MAP) Pulse Ox O2 O2 Flow FiO2 Time Delivery Rate 07/03/19 68 21 112/62 94 10:00 (79) 07/03/19 97.8 Nasal 4.0 08:00 Cannula 07/03/19 33 05:00 Intake and Output 07/02/19 07/02/19 07/03/19 1515:00 23:00 07:00 IntakeIntake Total 540 ml 360 ml 10 ml OutputOutput Total 850 ml 350 ml BalanceBalance -310 ml 10 ml 10 ml Exam Constitutional: distress Respiratory: crackles/rales, diminished breath sounds Cardiovascular: regular rate and rhythm, nl pulses Gastrointestinal: soft, non-tender Musculoskeletal: muscle weakness, swelling (2-3+ LE pitting edema ) Extremities: normal pulses Neurological: [employer] II-XII intact, nl mental status, nl speech, nl strength Results Result Diagram: 07/03/19 0539 07/03/19 0538 Results 24hrs Laboratory Tests Test 07/02/19 17:31 07/02/19 20:08 07/02/19 22:25 07/03/19 05:38 Bedside Glucose 81 152 157 Sodium Level 138 Potassium Level 5.6 H Chloride Level 108 Carbon Dioxide Level 22 Anion Gap 8 Blood Urea Nitrogen 76 H Creatinine 6.98 H Est Glomerular 6 L Filtrat Rate mL/min Glucose Level 92 Calcium Level 7.3 L Triglycerides Level 61 Cholesterol Level 89 L LDL Cholesterol, 29 Calculated HDL Cholesterol 48 Cholesterol/HDL Ratio 1.8 Test 07/03/19 05:39 07/03/19 08:24 White Blood Count 5.5 # Red Blood Count 3.31 L Hemoglobin 7.6 L Hematocrit 26.9 L Mean Corpuscular 81.3 L Volume Mean Corpuscular 23.0 L Hemoglobin Mean Corpuscular 28.3 L Hemoglobin Concent Red Cell Distribution 17.4 H Width Platelet Count 329 Mean Platelet Volume 10.0 Immature Granulocytes 0.400 % Neutrophils % 80.6 H Lymphocytes % 11.8 L Monocytes % 6.6 Eosinophils % 0.2 Basophils % 0.4 Nucleated Red Blood 0.5 H Cells % Immature Granulocytes 0.020 # Neutrophils # 4.4 Lymphocytes # 0.7 L Monocytes # 0.4 Eosinophils # 0.0 Basophils # 0.0 Nucleated Red Blood 0.0 Cells # Hemoglobin A1c 7.7 H Bedside Glucose 82 Medications Medication Current Medications Morphine Sulfate (morphine) 2 mg Q3 PRN IV PAIN LEVEL 6-10; Start 07/02/19 at 06 :00 Ondansetron HCl (Zofran Inj) 4 mg Q6H PRN IV NAUSEA; Start 07/02/19 at 08:30 Acetaminophen (Tylenol Tab) 1,000 mg Q6H PRN PO FEVER Last administered on 07/02/19at 21:11; Admin Dose 1,000 MG; Start 07/02/19 at 08:30 Zolpidem Tartrate (Ambien) 5 mg HS MAY REPEAT X 1 PRN PO INSOMNIA; Start 07/02/19 at 10:00 Atorvastatin Calcium (Lipitor) 20 mg QHS PO Last administered on 07/02/19at 21:12; Admin Dose 20 MG; Start 07/02/19 at 21:00 Hydralazine HCl (Apresoline) 50 mg TID PO Last administered on 07/03/19at 08:09; Admin Dose 50 MG; Start 07/02/19 at 13:00 Miscellaneous Information 1 ea NOTE XX ; Start 07/02/19 at 10:30 Glucose (Glutose) 15 gm Q15M PRN PO DECREASED GLUCOSE; Start 07/02/19 at 10:30 Glucose (Glutose) 22.5 gm Q15M PRN PO DECREASED GLUCOSE; Start 07/02/19 at 10:30 Dextrose (D50w Syringe) 25 ml Q15M PRN IV DECREASED GLUCOSE; Start 07/02/19 at 10:30 Dextrose (D50w Syringe) 50 ml Q15M PRN IV DECREASED GLUCOSE; Start 07/02/19 at 10:30 Glucagon (Glucagen) 1 mg Q15M PRN IM DECREASED GLUCOSE; Start 07/02/19 at 10:30 Glucose (Glutose) 15 gm Q15M PRN BUCCAL DECREASED GLUCOSE; Start 07/02/19 at 10:30 Hydralazine HCl (Apresoline) 10 mg Q4H PRN IV ELEVATED BLOOD PRESSURE Last administered on 07/02/19at 16:38; Admin Dose 10 MG; Start 07/02/19 at 11:30 Carvedilol (Coreg) 12.5 mg BID PO Last administered on 07/03/19at 08:08; Admin Dose 12.5 MG; Start 07/02/19 at 13:00 Nifedipine (Procardia Xl) 60 mg DAILY PO Last administered on 07/03/19at 08:09; Admin Dose 60 MG; Start 07/03/19 at 09:00 Diagnostic Test (Pha) (Accu-Chek) 1 ea 02 XX ; Start 07/03/19 at 02:00 Insulin Aspart (Novolog Insulin Pen) NOVOLOG *MILD* ALGORITHM WITH MEALS BEDTIME SC ; Start 07/02/19 at 17:35 Lorazepam (Ativan) 1 mg Q8H PRN PO ANXIETY; Start 07/02/19 at 17:30 Insulin Glargine (Lantus) 30 units QHS SC ; Start 07/02/19 at 21:00 ALEJANDRO REMY MD Jul 03, 2019 11:13
--- NOTE | 2019-07-03 11:16 | PN ---
Date/Time of Note Date/Time of Note DATE: 07/03/19 TIME: 11:15 Subjective Patient remains short of breath. Not making much urine. No complaint of chest pain Objective Vitals Vital Signs Date Temp Pulse Resp B/P (MAP) Pulse Ox O2 O2 Flow FiO2 Time Delivery Rate 07/03/19 68 21 112/62 94 10:00 (79) 07/03/19 97.8 Nasal 4.0 08:00 Cannula 07/03/19 33 05:00 Intake and Output 07/02/19 07/02/19 07/03/19 1515:00 23:00 07:00 IntakeIntake Total 540 ml 360 ml 10 ml OutputOutput Total 850 ml 350 ml BalanceBalance -310 ml 10 ml 10 ml Crackles at the bases Regular rate and rhythm Soft nontender nondistended normoactive bowel sounds Bilateral pedal edema Nonfocal Results Result Diagram: 07/03/19 0539 07/03/19 0538 Medications Medications Current Medications Morphine Sulfate (morphine) 2 mg Q3 PRN IV PAIN LEVEL 6-10; Start 07/02/19 at 06:00 Ondansetron HCl (Zofran Inj) 4 mg Q6H PRN IV NAUSEA; Start 07/02/19 at 08:30 Acetaminophen (Tylenol Tab) 1,000 mg Q6H PRN PO FEVER Last administered on 07/02/19at 21:11; Admin Dose 1,000 MG; Start 07/02/19 at 08:30 Zolpidem Tartrate (Ambien) 5 mg HS MAY REPEAT X 1 PRN PO INSOMNIA; Start 07/02/19 at 10:00 Atorvastatin Calcium (Lipitor) 20 mg QHS PO Last administered on 07/02/19at 21:12; Admin Dose 20 MG; Start 07/02/19 at 21:00 Hydralazine HCl (Apresoline) 50 mg TID PO Last administered on 07/03/19at 08:09; Admin Dose 50 MG; Start 07/02/19 at 13:00 Miscellaneous Information 1 ea NOTE XX ; Start 07/02/19 at 10:30 Glucose (Glutose) 15 gm Q15M PRN PO DECREASED GLUCOSE; Start 07/02/19 at 10:30 Glucose (Glutose) 22.5 gm Q15M PRN PO DECREASED GLUCOSE; Start 07/02/19 at 10:30 Dextrose (D50w Syringe) 25 ml Q15M PRN IV DECREASED GLUCOSE; Start 07/02/19 at 10:30 Dextrose (D50w Syringe) 50 ml Q15M PRN IV DECREASED GLUCOSE; Start 07/02/19 at 10:30 Glucagon (Glucagen) 1 mg Q15M PRN IM DECREASED GLUCOSE; Start 07/02/19 at 10:30 Glucose (Glutose) 15 gm Q15M PRN BUCCAL DECREASED GLUCOSE; Start 07/02/19 at 10:30 Hydralazine HCl (Apresoline) 10 mg Q4H PRN IV ELEVATED BLOOD PRESSURE Last administered on 07/02/19at 16:38; Admin Dose 10 MG; Start 07/02/19 at 11:30 Carvedilol (Coreg) 12.5 mg BID PO Last administered on 07/03/19at 08:08; Admin D ose 12.5 MG; Start 07/02/19 at 13:00 Nifedipine (Procardia Xl) 60 mg DAILY PO Last administered on 07/03/19at 08:09; Admin Dose 60 MG; Start 07/03/19 at 09:00 Diagnostic Test (Pha) (Accu-Chek) 1 ea 02 XX ; Start 07/03/19 at 02:00 Insulin Aspart (Novolog Insulin Pen) NOVOLOG *MILD* ALGORITHM WITH MEALS BEDTIME SC ; Start 07/02/19 at 17:35 Lorazepam (Ativan) 1 mg Q8H PRN PO ANXIETY; Start 07/02/19 at 17:30 Insulin Glargine (Lantus) 30 units QHS SC ; Start 07/02/19 at 21:00 VTE Prophylaxis Risk score (from Nsg)>0 risk: 4 SCD applied (from Nsg): Yes Lines/Catheters IV Catheter Type: Saline Lock Dumont in Place: No Assessment/Plan Assessment/Plan 44-year-old female with volume overload Stage V chronic kidney disease with poor response to IV Bumex Hypertension, well controlled Type 2 diabetes mellitus Moderate obesity Hyperkalemia Proceed with hemodialysis Transfer to telemetry Case was discussed with patient, her , and WARREN Reich MD Jul 03, 2019 11:16
[2019-07-03] MEDS ORDERED: SODIUM CHLORIDE 0.9% 1L BAG IV PRN (12:00)
[2019-07-03] MEDS ORDERED: ALBUMIN HUMAN 25% 100 ML IV PRN (12:00)
[2019-07-03] MEDS ORDERED: HEPARIN 1000 UNITS/ML 10 ML INJ CATHETER SCH (12:00)
[2019-07-03] MEDS ORDERED: BUMETANIDE 12 MG in DEXTROSE 5% 72 ML IV ONE (14:00)
[2019-07-03] MEDS: ATORVASTATIN 20 MG TAB PO SCH (21:57)
[2019-07-03] MEDS: INSULIN GLARGINE [LANTus] (100 UNITS/ML) SYG SC SCH (22:06)
--- NOTE | 2019-07-03 23:15 | CONS ---
DATE OF ADMISSION: 07/02/2019 DATE OF CONSULTATION: 07/03/2019 REASON FOR CONSULTATION: Evaluation for dialysis catheter placement. HISTORY OF PRESENT ILLNESS: This is a 44-year-old female with a history of hypertension, hyperlipide ana, end-stage renal disease and diabetes. The patient is currently being evaluated to undergo dialy sis. PAST MEDICAL HISTORY: As above. ALLERGIES: NONE. SOCIAL HISTORY: No smoking, drinking or drug use. MEDICATIONS: List reviewed. PHYSICAL EXAMINATION: VITAL SIGNS: Blood pressure is 128/62, pulse is 80, respirations 18, temperature is 98.2, saturation is 94% on 2 liters of oxygen. GENERAL: The patient is comfortable. CARDIOVASCULAR: Regular rate and rhythm. LUNGS: Clear. ABDOMEN: Soft. EXTREMITIES: 1+ edema at the ankles. IMPRESSION: End-stage renal disease. RECOMMENDATIONS: We will proceed with the placement of a dialysis catheter. Risks, benefits, compli cations, alternative therapies explained to the patient and the family. All questions were answered. Dictated By: DUTCH ROBERTS MD FM/EVANGELISTA Conf#: [id number] DID#: [id number] CC: EDELMIRA ONTIVEROS MD;*EndCC*
--- NOTE | 2019-07-03 23:17 | OPR ---
DATE OF OPERATION: 07/03/2019 PREOPERATIVE DIAGNOSIS: Renal failure. POSTOPERATIVE DIAGNOSIS: Renal failure. OPERATION PERFORMED: Right femoral hemodialysis catheter placement. SURGEON: Dutch Chong M.D. ANESTHESIA: Local. CONSENT: Risks, benefits, complications, alternative therapies explained to the patient and the [facility]. Consent was obtained. OPERATIVE TECHNIQUE: The patient was placed in supine position, prepped and draped in usual sterile fashion. Time-out was called. Access was gained in the right common femoral vein. Guidewire was ad vanced through without any difficulty. Subcutaneous tissues were dilated. A 20 cm dialysis catheter advanced over guidewire, secured to skin using silk sutures. Both ports of the catheter were aspira remy and injected using heparinized saline solution. The patient tolerated procedure well. Dictated By: DUTCH CARPENTER/EVANGELISTA Conf#: [id number] DID#: [id number] CC: EDELMIRA ONTIVEROS MD;*EndCC*
[2019-07-04] VITALS (14 sets, daily range): BP systolic 95–135; BP diastolic 48–64; PULSE 68–77; RESP 16–20
[2019-07-04] MEDS ORDERED: HEPARIN 1000 UNITS/ML 10 ML INJ HE ONE (00:41)
[2019-07-04] MEDS: ACCU-CHEK XX SCH (01:57)
[2019-07-04] MEDS ORDERED: BUMETANIDE 12 MG in DEXTROSE 5% 72 ML IV ONE (02:00)
[2019-07-04] MEDS: INSULIN ASPART [NOVOLOG] 3 ML PEN SC SCH ×4 (09:27→21:00)
[2019-07-04] MEDS: NIFEdipine (XL) 60 MG TAB PO SCH (09:36)
--- NOTE | 2019-07-04 14:03 | CONS ---
Assessment/Plan Assessment/Plan Assessment/Plan (Daily) 1. acute hyperkalemia- 5.6 due to JEOVANY on CKD IV 2. Acute kidney injury on CKD IV due to Hemodynamics from CHF 3. Acute CHF exacerbation , acute on chronic, systolic and Diastolic 4.Cardiomyopathy with EF 50% 5. 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 H/O HTN 7. H/o DM II- Hgb AIC 7.7 8. H/o HL 9. Hypertensive emergency with ongoing chest pain - Currently on NTG drip 10. Anemia -Hgb 7.6 Plan: BUN/Cr continues to rise, Not making adequate urine, failed bumex gtt, SP Louie HD catheter ; HD initiation today ; Plan for HD x 3 hr today Hold ACEi and other diuretics pt has full CKD work up on last admission , no need to repeat it SP NTG drip for HTN emergency and chest pain , continue Nifedipine XL now and Continue other BP meds- better now Patient seen in collaboration with Dr Sue Sanchez. will follow up Consultation Date/Type/Reason Admit Date/Time Jul 02, 2019 at 03:33 Initial Consult Date 07/02/19 Type of Consult NEPHROLOGY Requesting Provider: EDELMIRA ONTIVEROS MD Date/Time of Note DATE: 07/04/19 TIME: 14:00 24 HR Interval Summary Free Text/Dictation SP right femoral Louie placement Having first HD today no events last night Constitutional: requiring O2 Detailed Summary Eyes: no complaints ENT: no complaints Respiratory: no complaints Cardiovascular: no complaints Gastrointestinal: no complaints Genitourinary: no complaints Musculoskeletal: no complaints Skin: no complaints Neurologic: no complaints Endocrine: no complaints Lymphatic: no complaints Psychological: nl mood/affect Immunologic: no complaints Exam/Review of Systems Exam Vitals Vital Signs Date Temp Pulse Resp B/P (MAP) Pulse Ox O2 O2 Flow FiO2 Time Delivery Rate 07/04/19 98.4 77 20 135/63 94 Nasal 10:59 (87) Cannula 07/04/19 6.0 05:17 07/03/19 33 05:00 Intake and Output 07/03/19 07/03/19 07/04/19 1515:00 23:00 07:00 IntakeIntake Total 130 ml 240 ml OutputOutput Total 125 ml BalanceBalance 5 ml 240 ml Constitutional: alert, well developed, obese Psych: nl mood/affect Head: atraumatic Eyes: nl lids, nl sclera ENMT: nl external ears & nose Neck: non-tender Respiratory: clear to auscultation Gastrointestinal: soft, non-tender Musculoskeletal: nl extremities to inspection Extremities: normal pulses Neurological: nl speech Skin: other (no skin rash noted ) Lymph: nontender Results Result Diagram: 07/03/19 0539 07/03/19 0538 Results 24hrs Laboratory Tests Test 07/03/19 17:30 07/03/19 21:55 07/04/19 01:35 07/04/19 06:00 Bedside Glucose 110 123 106 Hepatitis B Surface NEGATIVE Antigen Hepatitis B Core NEGATIVE Total Antibody Hepatitis C Antibody NEGATIVE HIV (1&2) Antibody NEGATIVE Test 07/04/19 09:24 07/04/19 10:14 Bedside Glucose 61 L 96 Medications Medication Current Medications Morphine Sulfate (morphine) 2 mg Q3 PRN IV PAIN LEVEL 6-10 Last administered on 07/04/19at 03:48; Admin Dose 2 MG; Start 07/02/19 at 06:00 Ondansetron HCl (Zofran Inj) 4 mg Q6H PRN IV NAUSEA; Start 07/02/19 at 08:30 Acetaminophen (Tylenol Tab) 1,000 mg Q6H PRN PO FEVER Last administered on 07/02/19at 21:11; Admin Dose 1,000 MG; Start 07/02/19 at 08:30 Zolpidem Tartrate (Ambien) 5 mg HS MAY REPEAT X 1 PRN PO INSOMNIA; Start 07/02/19 at 10:00 Atorvastatin Calcium (Lipitor) 20 mg QHS PO Last administered on 07/03/19at 21:57; Admin Dose 20 MG; Start 07/02/19 at 21:00 Hydralazine HCl (Apresoline) 50 mg TID PO Last administered on 07/04/19at 09:36; Admin Dose 50 MG; Start 07/02/19 at 13:00 Miscellaneous Information 1 ea NOTE XX ; Start 07/02/19 at 10:30 Glucose (Glutose) 15 gm Q15M PRN PO DECREASED GLUCOSE; Start 07/02/19 at 10:30 Glucose (Glutose) 22.5 gm Q15M PRN PO DECREASED GLUCOSE; Start 07/02/19 at 10:30 Dextrose (D50w Syringe) 25 ml Q15M PRN IV DECREASED GLUCOSE; Start 07/02/19 at 10:30 Dextrose (D50w Syringe) 50 ml Q15M PRN IV DECREASED GLUCOSE; Start 07/02/19 at 10:30 Glucagon (Glucagen) 1 mg Q15M PRN IM DECREASED GLUCOSE; Start 07/02/19 at 10:30 Glucose (Glutose) 15 gm Q15M PRN BUCCAL DECREASED GLUCOSE; Start 07/02/19 at 10:30 Hydralazine HCl (Apresoline) 10 mg Q4H PRN IV ELEVATED BLOOD PRESSURE Last administered on 07/02/19at 16:38; Admin Dose 10 MG; Start 07/02/19 at 11:30 Carvedilol (Coreg) 12.5 mg BID PO Last administered on 07/04/19at 09:36; Admin Dose 12.5 MG; Start 07/02/19 at 13:00 Nifedipine (Procardia Xl) 60 mg DAILY PO Last administered on 07/04/19at 09:36; Admin Dose 60 MG; Start 07/03/19 at 09:00 Diagnostic Test (Pha) (Accu-Chek) 1 ea 02 XX Last administered on 07/04/19at 01:57; Admin Dose 1 EA; Start 07/03/19 at 02:00 Insulin Aspart (Novolog Insulin Pen) NOVOLOG *MILD* ALGORITHM WITH MEALS BEDTIME SC ; Start 07/02/19 at 17:35 Lorazepam (Ativan) 1 mg Q8H PRN PO ANXIETY; Start 07/02/19 at 17:30 Insulin Glargine (Lantus) 30 units QHS SC Last administered on 07/03/19at 22:06; Admin Dose 30 UNITS; Start 07/02/19 at 21:00 Albumin Human 100 ml @ 100 mls/hr WITH DIALYSIS PRN IV SBP <90 DURING DIALYSIS; Start 07/03/19 at 12:00 Sodium Chloride (NS) -To prime the dialy... DIRECTED FOR HD PRN IV HD; Start 07/03/19 at 12:00 Heparin Sodium (Porcine) (Heparin (1000 Units/ml)) 4,000 unit AFTER DIALYSIS CATHETER ; Start 07/05/19 at 01:00 JOZEF LOCKHART Jul 04, 2019 14:03
--- NOTE | 2019-07-04 14:35 | PN ---
Date/Time of Note Date/Time of Note DATE: 07/04/19 TIME: 14:33 Subjective Reports doing well. No chest pain or shortness of breath Objective Vitals Vital Signs Date Temp Pulse Resp B/P (MAP) Pulse Ox O2 O2 Flow FiO2 Time Delivery Rate 07/04/19 98.4 77 20 135/63 94 Nasal 10:59 (87) Cannula 07/04/19 6.0 05:17 07/03/19 33 05:00 Intake and Output 07/03/19 07/03/19 07/04/19 1515:00 23:00 07:00 IntakeIntake Total 130 ml 240 ml OutputOutput Total 125 ml BalanceBalance 5 ml 240 ml Crackles at the bases Regular rate and rhythm no murmurs or gallops Soft nontender nondistended normoactive bowel sounds 3+ pitting edema Nonfocal Results Result Diagram: 07/03/19 0539 07/03/19 0538 Medications Medications Current Medications Morphine Sulfate (morphine) 2 mg Q3 PRN IV PAIN LEVEL 6-10 Last administered on 07/04/19at 03:48; Admin Dose 2 MG; Start 07/02/19 at 06:00 Ondansetron HCl (Zofran Inj) 4 mg Q6H PRN IV NAUSEA; Start 07/02/19 at 08:30 Acetaminophen (Tylenol Tab) 1,000 mg Q6H PRN PO FEVER Last administered on 07/02/19at 21:11; Admin Dose 1,000 MG; Start 07/02/19 at 08:30 Zolpidem Tartrate (Ambien) 5 mg HS MAY REPEAT X 1 PRN PO INSOMNIA; Start 07/02/19 at 10:00 Atorvastatin Calcium (Lipitor) 20 mg QHS PO Last administered on 07/03/19at 21:57; Admin Dose 20 MG; Start 07/02/19 at 21:00 Hydralazine HCl (Apresoline) 50 mg TID PO Last administered on 07/04/19at 09:36; Admin Dose 50 MG; Start 07/02/19 at 13:00 Miscellaneous Information 1 ea NOTE XX ; Start 07/02/19 at 10:30 Glucose (Glutose) 15 gm Q15M PRN PO DECREASED GLUCOSE; Start 07/02/19 at 10:30 Glucose (Glutose) 22.5 gm Q15M PRN PO DECREASED GLUCOSE; Start 07/02/19 at 10:30 Dextrose (D50w Syringe) 25 ml Q15M PRN IV DECREASED GLUCOSE; Start 07/02/19 at 10:30 Dextrose (D50w Syringe) 50 ml Q15M PRN IV DECREASED GLUCOSE; Start 07/02/19 at 10:30 Glucagon (Glucagen) 1 mg Q15M PRN IM DECREASED GLUCOSE; Start 07/02/19 at 10:30 Glucose (Glutose) 15 gm Q15M PRN BUCCAL DECREASED GLUCOSE; Start 07/02/19 at 10:30 Hydralazine HCl (Apresoline) 10 mg Q4H PRN IV ELEVATED BLOOD PRESSURE Last administered on 07/02/19at 16:38; Admin Dose 10 MG; Start 07/02/19 at 11:30 Carvedilol (Coreg) 12.5 mg BID PO Last administered on 07/04/19at 09:36; Admin Dose 12.5 MG; Start 07/02/19 at 13:00 Nifedipine (Procardia Xl) 60 mg DAILY PO Last administered on 07/04/19at 09:36; Admin Dose 60 MG; Start 07/03/19 at 09:00 Diagnostic Test (Pha) (Accu-Chek) 1 ea 02 XX Last administered on 07/04/19at 01:57; Admin Dose 1 EA; Start 07/03/19 at 02:00 Insulin Aspart (Novolog Insulin Pen) NOVOLOG *MILD* ALGORITHM WITH MEALS BEDTIME SC ; Start 07/02/19 at 17:35 Lorazepam (Ativan) 1 mg Q8H PRN PO ANXIETY; Start 07/02/19 at 17:30 Insulin Glargine (Lantus) 30 units QHS SC Last administered on 07/03/19at 22:06; Admin Dose 30 UNITS; Start 07/02/19 at 21:00 Albumin Human 100 ml @ 100 mls/hr WITH DIALYSIS PRN IV SBP <90 DURING DIALYSIS; Start 07/03/19 at 12:00 Sodium Chloride (NS) -To prime the dialy... DIRECTED FOR HD PRN IV HD; Start 07/03/19 at 12:00 Heparin Sodium (Porcine) (Heparin (1000 Units/ml)) 4,000 unit AFTER DIALYSIS CATHETER ; Start 07/05/19 at 01:00 VTE Prophylaxis Risk score (from Nsg)>0 risk: 4 SCD applied (from Nsg): Yes Lines/Catheters IV Catheter Type: Saline Lock Dumont in Place: No Assessment/Plan Assessment/Plan 44-year-old female with volume overload Stage V chronic kidney disease, not responding to Bumex drip Poorly controlled hypertension Type 2 diabetes mellitus Proceed with hemodialysis Arrange outpatient hemodialysis 3 times weekly Nephrology and cardiology follow-up WARREN MASSEY MD Jul 04, 2019 14:35
--- NOTE | 2019-07-04 14:39 | CONS ---
Assessment/Plan Cardiology NYHA: II Heart Failure Type: Acute on Chronic Heart Failure Type: Both Assessment/Plan Hospital Course (Demo Recall) Acute decompensated systolic and diastolic congestive heart failure Cardiomyopathy with left ventricular ejection fraction 50% Chronic kidney disease Hypertension urgency, improved Diabetes Patient was unable to lie flat for nuclear cardiac perfusion study yesterday and was aborted Patient being initiated on hemodialysis with first session planned for today. Serial cardiac enzymes are negative, ECG with anteroseptal Q waves Once potassium improved as well as shortness of breath and able to lie down flat, will plan on nuclear cardiac perfusion study Titrate antihypertensives as needed with holding parameters Consultation Date/Type/Reason Admit Date/Time Jul 02, 2019 at 03:33 Initial Consult Date 07/02/19 Type of Consult Cardiology Requesting Provider: EDELMIRA ONTIVEROS MD Date/Time of Note DATE: 07/04/19 TIME: 14:35 24 HR Interval Summary Free Text/Dictation Still with shortness of breath and lying down flat. Denies chest pain, palpitations Exam/Review of Systems Vital Signs Vitals Vital Signs Date Temp Pulse Resp B/P (MAP) Pulse Ox O2 O2 Flow FiO2 Time Delivery Rate 07/04/19 98.4 77 20 135/63 94 Nasal 10:59 (87) Cannula 07/04/19 6.0 05:17 07/03/19 33 05:00 Intake and Output 07/03/19 07/03/19 07/04/19 1515:00 23:00 07:00 IntakeIntake Total 130 ml 240 ml OutputOutput Total 125 ml BalanceBalance 5 ml 240 ml Exam Constitutional: alert, oriented (No apparent distress) Head: normocephalic Respiratory: other (Coarse breath sounds bilaterally, no wheezing) Cardiovascular: regular rate and rhythm (S1-S2 heard) Gastrointestinal: soft, non-tender, bowel sounds Extremities: edema Labs Result Diagram: 07/03/19 0539 07/03/19 0538 Results 24hrs Laboratory Tests Test 07/03/19 17:30 07/03/19 21:55 07/04/19 01:35 07/04/19 06:00 Bedside Glucose 110 123 106 Hepatitis B Surface NEGATIVE Antigen Hepatitis B Core NEGATIVE Total Antibody Hepatitis C Antibody NEGATIVE HIV (1&2) Antibody NEGATIVE Test 07/04/19 09:24 07/04/19 10:14 Bedside Glucose 61 L 96 Medications Medications Current Medications Morphine Sulfate (morphine) 2 mg Q3 PRN IV PAIN LEVEL 6-10 Last administered on 07/04/19at 03:48; Admin Dose 2 MG; Start 07/02/19 at 06:00 Ondansetron HCl (Zofran Inj) 4 mg Q6H PRN IV NAUSEA; Start 07/02/19 at 08:30 Acetaminophen (Tylenol Tab) 1,000 mg Q6H PRN PO FEVER Last administered on 07/02/19 21:11; Admin Dose 1,000 MG; Start 07/02/19 at 08:30 Zolpidem Tartrate (Ambien) 5 mg HS MAY REPEAT X 1 PRN PO INSOMNIA; Start 07/02/19 at 10:00 Atorvastatin Calcium (Lipitor) 20 mg QHS PO Last administered on 07/03/19at 21:57; Admin Dose 20 MG; Start 07/02/19 at 21:00 Hydralazine HCl (Apresoline) 50 mg TID PO Last administered on 07/04/19 09:36; Admin Dose 50 MG; Start 07/02/19 at 13:00 Miscellaneous Information 1 ea NOTE XX ; Start 07/02/19 at 10:30 Glucose (Glutose) 15 gm Q15M PRN PO DECREASED GLUCOSE; Start 07/02/19 at 10:30 Glucose (Glutose) 22.5 gm Q15M PRN PO DECREASED GLUCOSE; Start 07/02/19 at 10:30 Dextrose (D50w Syringe) 25 ml Q15M PRN IV DECREASED GLUCOSE; Start 07/02/19 at 10:30 Dextrose (D50w Syringe) 50 ml Q15M PRN IV DECREASED GLUCOSE; Start 07/02/19 at 10:30 Glucagon (Glucagen) 1 mg Q15M PRN IM DECREASED GLUCOSE; Start 07/02/19 at 10:30 Glucose (Glutose) 15 gm Q15M PRN BUCCAL DECREASED GLUCOSE; Start 07/02/19 at 10:30 Hydralazine HCl (Apresoline) 10 mg Q4H PRN IV ELEVATED BLOOD PRESSURE Last administered on 07/02/19at 16:38; Admin Dose 10 MG; Start 07/02/19 at 11:30 Carvedilol (Coreg) 12.5 mg BID PO Last administered on 07/04/19at 09:36; Admin Dose 12.5 MG; Start 07/02/19 at 13:00 Nifedipine (Procardia Xl) 60 mg DAILY PO Last administered on 07/04/19at 09:36; Admin Dose 60 MG; Start 07/03/19 at 09:00 Diagnostic Test (Pha) (Accu-Chek) 1 ea 02 XX Last administered on 07/04/19at 01:57; Admin Dose 1 EA; Start 07/03/19 at 02:00 Insulin Aspart (Novolog Insulin Pen) NOVOLOG *MILD* ALGORITHM WITH MEALS BEDTIME SC ; Start 07/02/19 at 17:35 Lorazepam (Ativan) 1 mg Q8H PRN PO ANXIETY; Start 07/02/19 at 17:30 Insulin Glargine (Lantus) 30 units QHS SC Last administered on 07/03/19at 22:06; Admin Dose 30 UNITS; Start 07/02/19 at 21:00 Albumin Human 100 ml @ 100 mls/hr WITH DIALYSIS PRN IV SBP <90 DURING DIALYSIS; Start 07/03/19 at 12:00 Sodium Chloride (NS) -To prime the dialy... DIRECTED FOR HD PRN IV HD; Start 07/03/19 at 12:00 Heparin Sodium (Porcine) (Heparin (1000 Units/ml)) 4,000 unit AFTER DIALYSIS CATHETER ; Start 07/05/19 at 01:00 Gideon Petersen DO Jul 04, 2019 14:39
[2019-07-04] MEDS ORDERED: ALTEPLASE (CATHFLO) 2 MG INJ CATHETER STA (15:16)
[2019-07-04] MEDS: ATORVASTATIN 20 MG TAB PO SCH (21:19)
[2019-07-04] MEDS: INSULIN GLARGINE [LANTus] (100 UNITS/ML) SYG SC SCH (21:27)
[2019-07-05] VITALS (20 sets, daily range): BP systolic 90–142; BP diastolic 51–67; PULSE 68–83; RESP 17–18
[2019-07-05] MEDS ORDERED: HEPARIN 1000 UNITS/ML 10 ML INJ CATHETER SCH ×2 (01:00→19:30)
[2019-07-05] MEDS: ACCU-CHEK XX SCH (02:26)
[2019-07-05] MEDS: INSULIN ASPART [NOVOLOG] 3 ML PEN SC SCH ×4 (07:55→21:00)
[2019-07-05] MEDS ORDERED: NIFEdipine (XL) 30 MG TAB PO SCH (09:00)
--- NOTE | 2019-07-05 11:23 | CONS ---
Assessment/Plan Assessment/Plan Assessment/Plan (Daily) 1. acute hyperkalemia- 5.6 due to JEOVANY on CKD IV 2. Acute kidney injury on CKD IV due to Hemodynamics from CHF 3. Acute CHF exacerbation , acute on chronic, systolic and Diastolic 4.Cardiomyopathy with EF 50% 5. 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 H/O HTN 7. H/o DM II- Hgb AIC 7.7 8. H/o HL 9. Hypertensive emergency with ongoing chest pain - Currently on NTG drip 10. Anemia -Hgb 7.6 Plan: Started on HD on 07/04/19- Pt has Femoral juan In place plan for HD today pt will need FDC HD so she will need permacath HIV, hepatitis panel, outpatient HD placement requested will follow up Consultation Date/Type/Reason Admit Date/Time Jul 02, 2019 at 03:33 Initial Consult Date 07/02/19 Type of Consult NEPHROLOGY Requesting Provider: EDELMIRA ONTIVEROS MD Date/Time of Note DATE: 07/05/19 TIME: 11:23 Exam/Review of Systems Exam Vitals Vital Signs Date Temp Pulse Resp B/P (MAP) Pulse Ox O2 O2 Flow FiO2 Time Delivery Rate 07/05/19 98.2 72 18 109/58 96 07:30 (75) 07/05/19 6.0 00:32 07/04/19 Nasal 21:00 Cannula 07/03/19 33 05:00 Intake and Output 07/04/19 07/04/19 07/05/19 1515:00 23:00 07:00 IntakeIntake Total 430 ml 240 ml OutputOutput Total 3500 ml BalanceBalance 430 ml -3260 ml Results Result Diagram: 07/05/19 0525 07/05/19 0525 Results 24hrs Laboratory Tests Test 07/04/19 16:46 07/04/19 17:42 07/04/19 21:19 07/05/19 02:25 Bedside Glucose 68 L 95 132 100 Test 07/05/19 05:25 07/05/19 09:23 White Blood Count 6.7 # Red Blood Count 3.33 L Hemoglobin 7.6 L Hematocrit 26.4 L Mean Corpuscular 79.3 L Volume Mean Corpuscular 22.8 L Hemoglobin Mean Corpuscular 28.8 L Hemoglobin Concent Red Cell 17.3 H Distribution Width Platelet Count 334 Mean Platelet Volume 10.4 Immature 0.400 Granulocytes % Neutrophils % 79.8 H Lymphocytes % 8.3 L Monocytes % 8.2 Eosinophils % 2.7 Basophils % 0.6 Nucleated Red Blood 1.3 H Cells % Immature 0.030 Granulocytes # Neutrophils # 5.4 Lymphocytes # 0.6 L Monocytes # 0.6 Eosinophils # 0.2 Basophils # 0.0 Nucleated Red Blood 0.1 H Cells # Sodium Level 139 Potassium Level 5.2 H Chloride Level 105 Carbon Dioxide Level 22 Anion Gap 12 Blood Urea Nitrogen 68 H Creatinine 6.99 H Est Glomerular 6 L Filtrat Rate mL/min Glucose Level 60 #L Calcium Level 7.4 L Magnesium Level 2.1 Bedside Glucose 92 Medications Medication Current Medications Morphine Sulfate (morphine) 2 mg Q3 PRN IV PAIN LEVEL 6-10 Last administered on 07/04/19at 03:48; Admin Dose 2 MG; Start 07/02/19 at 06:00 Ondansetron HCl (Zofran Inj) 4 mg Q6H PRN IV NAUSEA; Start 07/02/19 at 08:30 Acetaminophen (Tylenol Tab) 1,000 mg Q6H PRN PO FEVER Last administered on 07/02/19at 21:11; Admin Dose 1,000 MG; Start 07/02/19 at 08:30 Zolpidem Tartrate (Ambien) 5 mg HS MAY REPEAT X 1 PRN PO INSOMNIA; Start 07/02/19 at 10:00 Atorvastatin Calcium (Lipitor) 20 mg QHS PO Last administered on 07/04/19at 21:19; Admin Dose 20 MG; Start 07/02/19 at 21:00 Hydralazine HCl (Apresoline) 50 mg TID PO Last administered on 07/04/19at 21:23; Admin Dose 50 MG; Start 07/02/19 at 13:00 Miscellaneous Information 1 ea NOTE XX ; Start 07/02/19 at 10:30 Glucose (Glutose) 15 gm Q15M PRN PO DECREASED GLUCOSE; Start 07/02/19 at 10:30 Glucose (Glutose) 22.5 gm Q15M PRN PO DECREASED GLUCOSE; Start 07/02/19 at 10:30 Dextrose (D50w Syringe) 25 ml Q15M PRN IV DECREASED GLUCOSE; Start 07/02/19 at 10:30 Dextrose (D50w Syringe) 50 ml Q15M PRN IV DECREASED GLUCOSE; Start 07/02/19 at 10:30 Glucagon (Glucagen) 1 mg Q15M PRN IM DECREASED GLUCOSE; Start 07/02/19 at 10:30 Glucose (Glutose) 15 gm Q15M PRN BUCCAL DECREASED GLUCOSE; Start 07/02/19 at 10:30 Hydralazine HCl (Apresoline) 10 mg Q4H PRN IV ELEVATED BLOOD PRESSURE Last administered on 07/02/19at 16:38; Admin Dose 10 MG; Start 07/02/19 at 11:30 Carvedilol (Coreg) 12.5 mg BID PO Last administered on 07/04/19 21:22; Admin D ose 12.5 MG; Start 07/02/19 at 13:00 Diagnostic Test (Pha) (Accu-Chek) 1 ea 02 XX Last administered on 07/05/19 02:26; Admin Dose 1 EA; Start 07/03/19 at 02:00 Insulin Aspart (Novolog Insulin Pen) NOVOLOG *MILD* ALGORITHM WITH MEALS BEDTIME SC ; Start 07/02/19 at 17:35 Lorazepam (Ativan) 1 mg Q8H PRN PO ANXIETY; Start 07/02/19 at 17:30 Albumin Human 100 ml @ 100 mls/hr WITH DIALYSIS PRN IV SBP <90 DURING DIALYSIS; Start 07/03/19 at 12:00 Sodium Chloride (NS) -To prime the dialy... DIRECTED FOR HD PRN IV HD; Start 07/03/19 at 12:00 Heparin Sodium (Porcine) (Heparin (1000 Units/ml)) 4,000 unit AFTER DIALYSIS CATHETER ; Start 07/05/19 at 01:00 Nifedipine (Procardia Xl) 30 mg BID PO ; Start 07/05/19 at 09:00 Insulin Glargine (Lantus) 20 units QHS SC Last administered on 07/04/19at 21:27; Admin Dose 20 UNITS; Start 07/04/19 at 21:00 ALEJANDRO REMY MD Jul 05, 2019 11:23
--- NOTE | 2019-07-05 13:22 | CONS ---
Assessment/Plan Cardiology NYHA: II Heart Failure Type: Acute on Chronic Heart Failure Type: Both Assessment/Plan Hospital Course (Demo Recall) Acute decompensated systolic and diastolic congestive heart failure Cardiomyopathy with left ventricular ejection fraction 50% Chronic kidney disease Hypertension urgency, improved Diabetes Lung examination improved as well as edema. Appears more comfortable. Plan for repeat hemodialysis session today. I Serial cardiac enzymes are negative, ECG with anteroseptal Q waves If able to lie down flat, will plan on nuclear cardiac perfusion study Titrate antihypertensives as needed with holding parameters-doses have been decreased Consultation Date/Type/Reason Admit Date/Time Jul 02, 2019 at 03:33 Initial Consult Date 07/02/19 Type of Consult Cardiology Requesting Provider: EDELMIRA ONTIVEROS MD Date/Time of Note DATE: 07/05/19 TIME: 13:21 24 HR Interval Summary Free Text/Dictation Shortness of breath is much better, denies chest pain, palpitations Exam/Review of Systems Vital Signs Vitals Vital Signs Date Temp Pulse Resp B/P (MAP) Pulse Ox O2 O2 Flow FiO2 Time Delivery Rate 07/05/19 98.3 68 17 114/58 93 11:46 (76) 07/05/19 6.0 00:32 07/04/19 Nasal 21:00 Cannula 07/03/19 33 05:00 Intake and Output 07/04/19 07/04/19 07/05/19 1515:00 23:00 07:00 IntakeIntake Total 430 ml 240 ml OutputOutput Total 3500 ml BalanceBalance 430 ml -3260 ml Exam Constitutional: alert, oriented (No apparent distress) Head: normocephalic Respiratory: other (Coarse breath sounds bilaterally, no wheezing) Cardiovascular: regular rate and rhythm (S1-S2 heard) Gastrointestinal: soft, non-tender, bowel sounds Extremities: edema Labs Result Diagram: 07/05/19 0525 07/05/19 0525 Results 24hrs Laboratory Tests Test 07/04/19 16:46 07/04/19 17:42 07/04/19 21:19 07/05/19 02:25 Bedside Glucose 68 L 95 132 100 Test 07/05/19 05:25 07/05/19 09:23 07/05/19 12:32 07/05/19 12:48 White Blood Count 6.7 # Red Blood Count 3.33 L Hemoglobin 7.6 L Hematocrit 26.4 L Mean Corpuscular 79.3 L Volume Mean Corpuscular 22.8 L Hemoglobin Mean Corpuscular 28.8 L Hemoglobin Concent Red Cell 17.3 H Distribution Width Platelet Count 334 Mean Platelet Volume 10.4 Immature 0.400 Granulocytes % Neutrophils % 79.8 H Lymphocytes % 8.3 L Monocytes % 8.2 Eosinophils % 2.7 Basophils % 0.6 Nucleated Red Blood 1.3 H Cells % Immature 0.030 Granulocytes # Neutrophils # 5.4 Lymphocytes # 0.6 L Monocytes # 0.6 Eosinophils # 0.2 Basophils # 0.0 Nucleated Red Blood 0.1 H Cells # Sodium Level 139 Potassium Level 5.2 H Chloride Level 105 Carbon Dioxide Level 22 Anion Gap 12 Blood Urea Nitrogen 68 H Creatinine 6.99 H Est Glomerular 6 L Filtrat Rate mL/min Glucose Level 60 #L Calcium Level 7.4 L Magnesium Level 2.1 Bedside Glucose 92 69 L 141 Medications Medications Current Medications Morphine Sulfate (morphine) 2 mg Q3 PRN IV PAIN LEVEL 6-10 Last administered on 07/04/19at 03:48; Admin Dose 2 MG; Start 07/02/19 at 06:00 Ondansetron HCl (Zofran Inj) 4 mg Q6H PRN IV NAUSEA; Start 07/02/19 at 08:30 Acetaminophen (Tylenol Tab) 1,000 mg Q6H PRN PO FEVER Last administered on 07/02/19at 21:11; Admin Dose 1,000 MG; Start 07/02/19 at 08:30 Zolpidem Tartrate (Ambien) 5 mg HS MAY REPEAT X 1 PRN PO INSOMNIA; Start 07/02/19 at 10:00 Atorvastatin Calcium (Lipitor) 20 mg QHS PO Last administered on 07/04/19at 21:19; Admin Dose 20 MG; Start 07/02/19 at 21:00 Hydralazine HCl (Apresoline) 50 mg TID PO Last administered on 07/04/19at 21:23; Admin Dose 50 MG; Start 07/02/19 at 13:00 Miscellaneous Information 1 ea NOTE XX ; Start 07/02/19 at 10:30 Glucose (Glutose) 15 gm Q15M PRN PO DECREASED GLUCOSE; Start 07/02/19 at 10:30 Glucose (Glutose) 22.5 gm Q15M PRN PO DECREASED GLUCOSE; Start 07/02/19 at 10:30 Dextrose (D50w Syringe) 25 ml Q15M PRN IV DECREASED GLUCOSE; Start 07/02/19 at 10:30 Dextrose (D50w Syringe) 50 ml Q15M PRN IV DECREASED GLUCOSE; Start 07/02/19 at 10:30 Glucagon (Glucagen) 1 mg Q15M PRN IM DECREASED GLUCOSE; Start 07/02/19 at 10:30 Glucose (Glutose) 15 gm Q15M PRN BUCCAL DECREASED GLUCOSE; Start 07/02/19 at 10:30 Hydralazine HCl (Apresoline) 10 mg Q4H PRN IV ELEVATED BLOOD PRESSURE Last administered on 07/02/19at 16:38; Admin Dose 10 MG; Start 07/02/19 at 11:30 Carvedilol (Coreg) 12.5 mg BID PO Last administered on 07/04/19 21:22; Admin Dose 12.5 MG; Start 07/02/19 at 13:00 Diagnostic Test (Pha) (Accu-Chek) 1 ea 02 XX Last administered on 07/05/19at 02:26; Admin Dose 1 EA; Start 07/03/19 at 02:00 Insulin Aspart (Novolog Insulin Pen) NOVOLOG *MILD* ALGORITHM WITH MEALS BEDTIME SC ; Start 07/02/19 at 17:35 Lorazepam (Ativan) 1 mg Q8H PRN PO ANXIETY; Start 07/02/19 at 17:30 Albumin Human 100 ml @ 100 mls/hr WITH DIALYSIS PRN IV SBP <90 DURING DIALYSIS; Start 07/03/19 at 12:00 Sodium Chloride (NS) -To prime the dialy... DIRECTED FOR HD PRN IV HD; Start 07/03/19 at 12:00 Heparin Sodium (Porcine) (Heparin (1000 Units/ml)) 4,000 unit AFTER DIALYSIS CATHETER ; Start 07/05/19 at 01:00 Nifedipine (Procardia Xl) 30 mg BID PO ; Start 07/05/19 at 09:00 Insulin Glargine (Lantus) 20 units QHS SC Last administered on 07/04/19 21:27; Admin Dose 20 UNITS; Start 07/04/19 at 21:00 Gideon Petersen DO Jul 05, 2019 13:22
--- NOTE | 2019-07-05 21:05 | PN ---
Date/Time of Note Date/Time of Note DATE: 07/05/19 TIME: 20:54 Assessment/Plan VTE Prophylaxis Risk score (from Ns)>0 risk: 7 SCD applied (from Ns): No SCD contraindicated: other Pharmacological prophylaxis: heparin Lines/Catheters IV [facility]from [facility] juan Urinary Cath still in place: Yes Reason Cath still needed: other (indicate) Assessment/Plan Hospital Course 44 f with CKD V and CHF who presented with respiratory failure with hypoxia in the setting of acute exacerbation of chronic Combined SD CHF and volume overload. She was started on HD on this admission for the first time and SOB significantly improved . She is awaiting cardiac work up . #Reps failure with hypoxia in the setting of acute exacerbation of Combined SD CHF and volume overload - wean O2 as tolerated - HD and UF # CKD V --> ESRD on HD - HD chair secured, Hep panel negative #Acute acute exacerbation of chronic Combined SD CHF - Awaiting stress test latha AM #DM on inslin - Lantus and sliding scale #Anemia in ESRD - EPO per nephrology - Anemia work up : Iron panel , B12 and Folate levels # PPX: Heparin an Pepcid Result Diagram: 07/05/19 0525 07/05/19 1316 Results 24hrs Laboratory Tests Test 07/04/19 21:19 07/05/19 02:25 07/05/19 05:25 07/05/19 09:23 Bedside Glucose 132 100 92 White Blood Count 6.7 # Red Blood Count 3.33 L Hemoglobin 7.6 L Hematocrit 26.4 L Mean Corpuscular 79.3 L Volume Mean Corpuscular 22.8 L Hemoglobin Mean Corpuscular 28.8 L Hemoglobin Concent Red Cell 17.3 H Distribution Width Platelet Count 334 Mean Platelet Volume 10.4 Immature 0.400 Granulocytes % Neutrophils % 79.8 H Lymphocytes % 8.3 L Monocytes % 8.2 Eosinophils % 2.7 Basophils % 0.6 Nucleated Red Blood 1.3 H Cells % Immature 0.030 Granulocytes # Neutrophils # 5.4 Lymphocytes # 0.6 L Monocytes # 0.6 Eosinophils # 0.2 Basophils # 0.0 Nucleated Red Blood 0.1 H Cells # Sodium Level 139 Potassium Level 5.2 H Chloride Level 105 Carbon Dioxide Level 22 Anion Gap 12 Blood Urea Nitrogen 68 H Creatinine 6.99 H Est Glomerular 6 L Filtrat Rate mL/min Glucose Level 60 #L Calcium Level 7.4 L Magnesium Level 2.1 Test 07/05/19 12:32 07/05/19 12:48 07/05/19 13:16 07/05/19 17:41 Bedside Glucose 69 L 141 92 Glucose Level 123 # Subjective 24 Hr Interval Summary Free Text/Dictation SOB improving , no CP , still can not lay flat , no fver , no chills, no cough , Exam/Review of Systems Exam Vitals Vital Signs Date Temp Pulse Resp B/P (MAP) Pulse Ox O2 O2 Flow FiO2 Time Delivery Rate 07/05/19 98.0 80 18 123/67 100 19:59 (85) 07/05/19 Nasal 2.0 16:20 Cannula 07/03/19 33 05:00 Intake and Output 07/04/19 07/04/19 07/05/19 1414:59 22:59 06:59 IntakeIntake Total 440 ml 240 ml OutputOutput Total 3500 ml BalanceBalance 440 ml -3260 ml Constitutional: alert, oriented, well developed Psych: no complaints, nl mood/affect Head: normocephalic, atraumatic Eyes: nl conjunctiva, EOMI, nl lids, nl sclera, PERRL ENMT: nl external ears & nose, nl lips & teeth, nl nasal mucosa & septum Neck: supple, non-tender Respiratory: crackles/rales Cardiovascular: regular rate and rhythm, nl pulses Gastrointestinal: soft, nl liver, spleen, non-tender Musculoskeletal: nl extremities to inspection, nl gait and stance Extremities: normal pulses, edema, pitting pedal edema Neurological: TRADEMARK AFFIXER II-XII intact, nl mental status, nl speech, nl strength Results Results 24hrs Laboratory Tests Test 07/04/19 21:19 07/05/19 02:25 07/05/19 05:25 07/05/19 09:23 Bedside Glucose 132 100 92 White Blood Count 6.7 # Red Blood Count 3.33 L Hemoglobin 7.6 L Hematocrit 26.4 L Mean Corpuscular 79.3 L Volume Mean Corpuscular 22.8 L Hemoglobin Mean Corpuscular 28.8 L Hemoglobin Concent Red Cell 17.3 H Distribution Width Platelet Count 334 Mean Platelet Volume 10.4 Immature 0.400 Granulocytes % Neutrophils % 79.8 H Lymphocytes % 8.3 L Monocytes % 8.2 Eosinophils % 2.7 Basophils % 0.6 Nucleated Red Blood 1.3 H Cells % Immature 0.030 Granulocytes # Neutrophils # 5.4 Lymphocytes # 0.6 L Monocytes # 0.6 Eosinophils # 0.2 Basophils # 0.0 Nucleated Red Blood 0.1 H Cells # Sodium Level 139 Potassium Level 5.2 H Chloride Level 105 Carbon Dioxide Level 22 Anion Gap 12 Blood Urea Nitrogen 68 H Creatinine 6.99 H Est Glomerular 6 L Filtrat Rate mL/min Glucose Level 60 #L Calcium Level 7.4 L Magnesium Level 2.1 Test 07/05/19 12:32 07/05/19 12:48 07/05/19 13:16 07/05/19 17:41 Bedside Glucose 69 L 141 92 Glucose Level 123 # Medications Medication Current Medications Morphine Sulfate (morphine) 2 mg Q3 PRN IV PAIN LEVEL 6-10 Last administered on 07/04/19at 03:48; Admin Dose 2 MG; Start 07/02/19 at 06:00 Ondansetron HCl (Zofran Inj) 4 mg Q6H PRN IV NAUSEA; Start 07/02/19 at 08:30 Acetaminophen (Tylenol Tab) 1,000 mg Q6H PRN PO FEVER Last administered on 07/02/19at 21:11; Admin Dose 1,000 MG; Start 07/02/19 at 08:30 Zolpidem Tartrate (Ambien) 5 mg HS MAY REPEAT X 1 PRN PO INSOMNIA; Start 07/02/19 at 10:00 Atorvastatin Calcium (Lipitor) 20 mg QHS PO Last administered on 07/04/19at 21:19; Admin Dose 20 MG; Start 07/02/19 at 21:00 Miscellaneous Information 1 ea NOTE XX ; Start 07/02/19 at 10:30 Glucose (Glutose) 15 gm Q15M PRN PO DECREASED GLUCOSE; Start 07/02/19 at 10:30 Glucose (Glutose) 22.5 gm Q15M PRN PO DECREASED GLUCOSE; Start 07/02/19 at 10:30 Dextrose (D50w Syringe) 25 ml Q15M PRN IV DECREASED GLUCOSE; Start 07/02/19 at 10:30 Dextrose (D50w Syringe) 50 ml Q15M PRN IV DECREASED GLUCOSE; Start 07/02/19 at 10:30 Glucagon (Glucagen) 1 mg Q15M PRN IM DECREASED GLUCOSE; Start 07/02/19 at 10:30 Glucose (Glutose) 15 gm Q15M PRN BUCCAL DECREASED GLUCOSE; Start 07/02/19 at 10:30 Hydralazine HCl (Apresoline) 10 mg Q4H PRN IV ELEVATED BLOOD PRESSURE Last administered on 07/02/19 16:38; Admin Dose 10 MG; Start 07/02/19 at 11:30 Diagnostic Test (Pha) (Accu-Chek) 1 ea 02 XX Last administered on 07/05/19 02:26; Admin Dose 1 EA; Start 07/03/19 at 02:00 Insulin Aspart (Novolog Insulin Pen) NOVOLOG *MILD* ALGORITHM WITH MEALS BEDTIME SC ; Start 07/02/19 at 17:35 Lorazepam (Ativan) 1 mg Q8H PRN PO ANXIETY; Start 07/02/19 at 17:30 Albumin Human 100 ml @ 100 mls/hr WITH DIALYSIS PRN IV SBP <90 DURING DIALYSIS Last administered on 07/05/19 16:25; Admin Dose 100 MLS/HR; Start 07/03/19 at 12:00 Sodium Chloride (NS) -To prime the dialy... DIRECTED FOR HD PRN IV HD; Start 07/03/19 at 12:00 Heparin Sodium (Porcine) (Heparin (1000 Units/ml)) 4,000 unit AFTER DIALYSIS CATHETER ; Start 07/05/19 at 01:00 Insulin Glargine (Lantus) 20 units QHS SC Last administered on 07/04/19at 21:27; Admin Dose 20 UNITS; Start 07/04/19 at 21:00 Carvedilol (Coreg) 6.25 mg BID PO ; Start 07/05/19 at 21:00 Hydralazine HCl (Apresoline) 25 mg BID PO ; Start 07/05/19 at 21:00 Heparin Sodium (Porcine) (Heparin (1000 Units/ml)) 2,800 unit AFTER DIALYSIS CATHETER Last administered on 07/05/19at 19:42; Admin Dose 2,800 UNIT; Start 07/05/19 at 19:30 DMITRI ULLOA MD Jul 05, 2019 21:05
[2019-07-05] MEDS: ATORVASTATIN 20 MG TAB PO SCH (21:42)
[2019-07-05] MEDS: HEPARIN 5,000 UNIT/1 ML VIAL SC SCH (21:52)
[2019-07-05] MEDS: INSULIN GLARGINE [LANTus] (100 UNITS/ML) SYG SC SCH (21:53)
[2019-07-06 00:03] VITALS: BP 136/64; PULSE 83; RESP 18
[2019-07-06] MEDS: ACCU-CHEK XX SCH (01:40)
[2019-07-06 04:16] VITALS: BP 129/62; PULSE 77; RESP 18
[2019-07-06 07:24] VITALS: BP 123/62; PULSE 79; RESP 17
[2019-07-06] MEDS: INSULIN ASPART [NOVOLOG] 3 ML PEN SC SCH ×5 (07:55→20:43)
[2019-07-06] MEDS: DEXTROSE 50% 50 ML SYRINGE IV PRN ×2 (08:08→12:05)
[2019-07-06] MEDS: HEPARIN 5,000 UNIT/1 ML VIAL SC SCH ×2 (08:19→20:54)
[2019-07-06 11:21] VITALS: BP 126/63; PULSE 77; RESP 17
--- NOTE | 2019-07-06 12:44 | DS ---
Date/Time of Note Date/Time of Note DATE: 07/06/19 TIME: 12:44 Discharge Summary Admission/Discharge Info Admit Date/Time Jul 02, 2019 at 03:33 Discharge Date/Time Patient Condition: Stable Hospital Course 44 f with CKD V and CHF who presented with respiratory failure with hypoxia in the setting of acute exacerbation of chronic Combined SD CHF and volume overload. She was started on HD on this admission for the first time and SOB significantly improved . Her cardiac work up for ischemia including NM stress test was unremarkable . Perm cath placed on this admission #Reps failure with hypoxia in the setting of acute exacerbation of Combined SD CHF and volume overload - Home O2 - HD # CKD V --> ESRD on HD - HD chair secured, Hep panel negative #Acute acute exacerbation of chronic Combined SD CHF - NM test negative #DM on inslin - Lantus and sliding scale #Anemia in ESRD #Iron deficiency - EPO per nephrology - Iron , PO on DC Home Meds Active Scripts Ferrous Sulfate* (Ferrous Sulfate*) 325 Mg Tabec, 325 MG PO BID for 60 Days, #120 TAB Prov:DMITRI ULLOA MD 07/06/19 Aspirin* (Aspirin* EC) 81 Mg Tablet.dr, 81 MG PO DAILY for 60 Days, #60 TAB Prov:DMITRI ULLOA MD 07/06/19 Carvedilol* (Carvedilol*) 12.5 Mg Tablet, 6.25 MG PO BID for 30 Days, #60 TAB Prov:DMITRI ULLOA MD 07/06/19 Hydralazine Hcl* (Hydralazine Hcl*) 50 Mg Tab, 25 MG PO BID, #90 TAB Prov:DMITRI ULLOA MD 07/06/19 Reported Medications Empagliflozin (Jardiance) 25 Mg Tablet, 12.5 MG PO BID, TAB 07/02/19 Insulin Lispro (Humalog Kwikpen U-100) 100 Unit/1 Ml Insuln.pen, 8 UNIT SQ WITH MEALS, EA 07/02/19 Atorvastatin Calcium* (Atorvastatin Calcium*) 20 Mg Tablet, 20 MG PO QHS, #30 TAB 07/02/19 Insulin Glargine,Hum.rec.anlog (Basaglar Kwikpen U-100) 100 Unit/1 Ml Insuln.pen, 30 UNIT SC QHS, EA 07/02/19 Discontinued Reported Medications Potassium Chloride* (K-Dur*) 10 Meq Tab.prt.sr, 10 MEQ PO DAILY, TAB 07/02/19 Bumetanide* (Bumetanide*) 1 Mg Tablet, 1 MG PO TID, TAB TAKE 8AM,2PM,7PM. 07/02/19 Amlodipine Besylate* (Norvasc*) 5 Mg Tablet, 5 MG PO DAILY, TAB 07/02/19 Primary Care Provider Not On Staff Doctor Pending Labs Laboratory Tests Test 07/05/19 12:48 07/05/19 13:16 07/05/19 17:41 07/05/19 21:38 Bedside 141 92 124 Glucose mg/dL (70-220) mg/dL (70-220) mg/dL (70-220) Glucose Level 123 mg/dl (70-220) Test 07/06/19 01:36 07/06/19 06:31 07/06/19 06:32 07/06/19 08:02 Bedside 114 49 Glucose mg/dL (70-220) mg/dL (70-220) White Blood 6.4 Count 10^3/ul (4.8-1 0.8) Red Blood 3.33 Count 10^6/ul (4.20- 5.40) Hemoglobin 7.5 g/dl (12.0-16. 0) Hematocrit 26.0 % (37.0-47.0) Mean 78.1 Corpuscular fl (82.0-101.0 Volume ) Mean 22.5 Corpuscular pg (29.0-33.0) Hemoglobin Mean 28.8 Corpuscular g/dl (32.0-37. Hemoglobin Conc 0) ent Red Cell 17.2 Distribution % (11.5-14.5) Width Platelet Count 310 10^3/UL (140-4 15) Mean Platelet 10.2 Volume fl (7.4-10.4) Immature 0.600 Granulocytes % % (0.001-0.429 ) Neutrophils % 78.4 % (39.0-77.0) Lymphocytes % 8.7 % (15.0-51.0) Monocytes % 9.0 % (0.0-11.0) Eosinophils % 2.8 % (0.0-7.0) Basophils % 0.5 % (0.0-2.0) Nucleated Red 1.3 Blood Cells % /100WBC (0.0-0 .0) Immature 0.040 Granulocytes # 10^3/ul (0.0-0 .031) Neutrophils # 5.0 10^3/ul (1.6-7 .5) Lymphocytes # 0.6 10^3/ul (0.8-2 .9) Monocytes # 0.6 10^3/ul (0.3-0 .9) Eosinophils # 0.2 10^3/ul (0.0-0 .5) Basophils # 0.0 10^3/ul (0.0-0 .1) Nucleated Red 0.1 Blood Cells # 10^3/ul (0.0-0 .0) Sodium Level 138 mmol/L (135-14 4) Potassium 4.5 Level mmol/L (3.5-5. 1) Chloride Level 103 mmol/L (97-110 ) Carbon Dioxide 26 Level mmol/L (21-31) Anion Gap 9 (5-13) Blood Urea 54 Nitrogen mg/dl (7-20) Creatinine 5.51 mg/dl (0.44-1. 00) Est Glomerular 8 mL/min (>60) Filtrat Rate mL/min Glucose Level 44 mg/dl (70-220) Calcium Level 7.5 mg/dl (8.4-10. 2) Phosphorus 7.8 Level mg/dl (2.5-4.9 ) Magnesium 2.0 Level mg/dl (1.7-2.5 ) Vitamin B12 948 Level pg/ml (239-931 ) Folate 9.2 ng/ml (2.8-20. 0) Iron Level < 10 ug/dl (35-150) Total Iron 293 Binding ug/dl (241-421 Capacity ) Percent Iron % SAT (22-52) Saturation Test 07/06/19 08:16 07/06/19 08:31 07/06/19 12:00 07/06/19 12:09 Bedside 230 138 48 265 Glucose mg/dL (70-220) mg/dL (70-220) mg/dL (70-220) mg/dL (70-220) Test 07/06/19 12:25 Bedside 150 Glucose mg/dL (70-220) DMITRI ULLOA MD Jul 06, 2019 12:44
[2019-07-06] MEDS ORDERED: REGADENOSON 0.4 MG/5 ML SYG ONE (13:51)
[2019-07-06] MEDS: SOD FERRIC GLUC COMPLX 125 MG in SOD CHLORIDE 0.9% 100 ML IVPB SCH (15:43)
[2019-07-06] MEDS: DEXTROSE 5%-0.9% NACL 1,000 ML IV SCH (15:43)
[2019-07-06 15:59] VITALS: BP 137/67; PULSE 81; RESP 18
--- NOTE | 2019-07-06 17:07 | CONS ---
Assessment/Plan Cardiology NYHA: II Heart Failure Type: Acute on Chronic Heart Failure Type: Both Assessment/Plan Hospital Course (Demo Recall) Acute decompensated systolic and diastolic congestive heart failure Cardiomyopathy with left ventricular ejection fraction 50% Chronic kidney disease initiated on hemodialysis Hypertension urgency, resolved No ischemia nuclear cardiac perfusion study 07/06/2019 Diabetes Nuclear study done today with no evidence of ischemia, small area of infarct. Would pursue aggressive medical management. Given anemia, would not initiate aspirin at the current time. Continue beta-caro, statin therapy, blood pressure control Hemodialysis for fluid removal Consultation Date/Type/Reason Admit Date/Time Jul 02, 2019 at 03:33 Initial Consult Date 07/02/19 Type of Consult Cardiology Requesting Provider: EDELMIRA ONTIVEROS MD Date/Time of Note DATE: 07/06/19 TIME: 17:05 24 HR Interval Summary Free Text/Dictation Feeling much better after hemodialysis, no shortness of breath, chest pain Exam/Review of Systems Vital Signs Vitals Vital Signs Date Temp Pulse Resp B/P (MAP) Pulse Ox O2 O2 Flow FiO2 Time Delivery Rate 07/06/19 98.0 81 18 137/67 91 15:59 (90) 07/06/19 Nasal 2.0 08:00 Cannula 07/03/19 33 05:00 Intake and Output 07/05/19 07/05/19 07/06/19 1515:00 23:00 07:00 IntakeIntake Total 500 ml 250 ml OutputOutput Total 2650 ml 100 ml BalanceBalance 500 ml -2400 ml -100 ml Exam Constitutional: alert, oriented (No apparent distress) Respiratory: other (Coarse breath sounds bilaterally, no wheezing) Cardiovascular: regular rate and rhythm (S1-S2 heard) Gastrointestinal: soft, non-tender, bowel sounds Extremities: edema Labs Result Diagram: 07/06/19 0631 07/06/19 0631 Results 24hrs Laboratory Tests Test 07/05/19 17:41 07/05/19 21:38 07/06/19 01:36 07/06/19 06:31 Bedside Glucose 92 124 114 White Blood Count 6.4 Red Blood Count 3.33 L Hemoglobin 7.5 L Hematocrit 26.0 L Mean Corpuscular 78.1 L Volume Mean Corpuscular 22.5 L Hemoglobin Mean Corpuscular 28.8 L Hemoglobin Concent Red Cell 17.2 H Distribution Width Platelet Count 310 Mean Platelet Volume 10.2 Immature 0.600 H Granulocytes % Neutrophils % 78.4 H Lymphocytes % 8.7 L Monocytes % 9.0 Eosinophils % 2.8 Basophils % 0.5 Nucleated Red Blood 1.3 H Cells % Immature 0.040 H Granulocytes # Neutrophils # 5.0 Lymphocytes # 0.6 L Monocytes # 0.6 Eosinophils # 0.2 Basophils # 0.0 Nucleated Red Blood 0.1 H Cells # Sodium Level 138 Potassium Level 4.5 Chloride Level 103 Carbon Dioxide Level 26 Anion Gap 9 Blood Urea Nitrogen 54 H Creatinine 5.51 H Est Glomerular 8 L Filtrat Rate mL/min Glucose Level 44 #*L Calcium Level 7.5 L Phosphorus Level 7.8 H Magnesium Level 2.0 Vitamin B12 Level 948 H Folate 9.2 Test 07/06/19 06:32 07/06/19 08:02 07/06/19 08:16 07/06/19 08:31 Iron Level < 10 L Total Iron Binding 293 Capacity Percent Iron Saturation Bedside Glucose 49 *L 230 H 138 Test 07/06/19 12:00 07/06/19 12:09 07/06/19 12:25 07/06/19 12:57 Bedside Glucose 48 *L 265 H 150 117 Medications Medications Current Medications Morphine Sulfate (morphine) 2 mg Q3 PRN IV PAIN LEVEL 6-10 Last administered on 07/04/19at 03:48; Admin Dose 2 MG; Start 07/02/19 at 06:00 Ondansetron HCl (Zofran Inj) 4 mg Q6H PRN IV NAUSEA; Start 07/02/19 at 08:30 Acetaminophen (Tylenol Tab) 1,000 mg Q6H PRN PO FEVER Last administered on 07/02/19at 21:11; Admin Dose 1,000 MG; Start 07/02/19 at 08:30 Zolpidem Tartrate (Ambien) 5 mg HS MAY REPEAT X 1 PRN PO INSOMNIA; Start 07/02/19 at 10:00 Atorvastatin Calcium (Lipitor) 20 mg QHS PO Last administered on 07/05/19at 21:42; Admin Dose 20 MG; Start 07/02/19 at 21:00 Miscellaneous Information 1 ea NOTE XX ; Start 07/02/19 at 10:30 Glucose (Glutose) 15 gm Q15M PRN PO DECREASED GLUCOSE; Start 07/02/19 at 10:30 Glucose (Glutose) 22.5 gm Q15M PRN PO DECREASED GLUCOSE; Start 07/02/19 at 10:30 Dextrose (D50w Syringe) 25 ml Q15M PRN IV DECREASED GLUCOSE; Start 07/02/19 at 10:30 Dextrose (D50w Syringe) 50 ml Q15M PRN IV DECREASED GLUCOSE Last administered on 07/06/19 12:05; Admin Dose 50 ML; Start 07/02/19 at 10:30 Glucagon (Glucagen) 1 mg Q15M PRN IM DECREASED GLUCOSE; Start 07/02/19 at 10:30 Glucose (Glutose) 15 gm Q15M PRN BUCCAL DECREASED GLUCOSE; Start 07/02/19 at 10:30 Hydralazine HCl (Apresoline) 10 mg Q4H PRN IV ELEVATED BLOOD PRESSURE Last admi nistered on 07/02/19at 16:38; Admin Dose 10 MG; Start 07/02/19 at 11:30 Lorazepam (Ativan) 1 mg Q8H PRN PO ANXIETY; Start 07/02/19 at 17:30 Albumin Human 100 ml @ 100 mls/hr WITH DIALYSIS PRN IV SBP <90 DURING DIALYSIS Last administered on 07/05/19 16:25; Admin Dose 100 MLS/HR; Start 07/03/19 at 12:00 Heparin Sodium (Porcine) (Heparin (1000 Units/ml)) 4,000 unit AFTER DIALYSIS CATHETER ; Start 07/05/19 at 01:00 Insulin Glargine (Lantus) 20 units QHS SC Last administered on 07/05/19 21:53; Admin Dose 20 UNITS; Start 07/04/19 at 21:00 Carvedilol (Coreg) 6.25 mg BID PO Last administered on 07/06/19 08:13; Admin Dose 6.25 MG; Start 07/05/19 at 21:00 Hydralazine HCl (Apresoline) 25 mg BID PO Last administered on 07/06/19 08:13; Admin Dose 25 MG; Start 07/05/19 at 21:00 Heparin Sodium (Porcine) (Heparin (1000 Units/ml)) 2,800 unit AFTER DIALYSIS CATHETER Last administered on 07/05/19at 19:42; Admin Dose 2,800 UNIT; Start 07/05/19 at 19:30 Heparin Sodium (Porcine) (Heparin (5000 Units/1ml)) 5,000 unit BID SC Last administered on 07/06/19at 08:19; Admin Dose 5,000 UNIT; Start 07/05/19 at 21:00 Diagnostic Test (Pha) (Accu-Chek) 1 ea 02 XX ; Start 07/07/19 at 02:00 Ferric Sodium Gluconate Complex 125 mg/Sodium Chloride 110 ml @ 110 mls/hr DAILY@1300 IVPB Last administered on 07/06/19at 15:43; Admin Dose 110 MLS/HR; Start 07/06/19 at 13:00; Stop 07/10/19 at 13:59 Dextrose/Sodium Chloride 1,000 ml @ 50 mls/hr Q20H IV Last administered on 07/06/19at 15:43; Admin Dose 50 MLS/HR; Start 07/06/19 at 13:00 Insulin Aspart (Novolog Insulin Pen) NOVOLOG *MILD* ALGORITHM WITH MEALS B EDTIME SC ; Start 07/06/19 at 17:55 Gideon Petersen DO Jul 06, 2019 17:07
--- NOTE | 2019-07-06 17:19 | CONS ---
Assessment/Plan Assessment/Plan Assessment/Plan (Daily) 1. acute hyperkalemia- 5.6 due to JEOVANY on CKD IV - resolved with HD initiation 2. Acute kidney injury on CKD IV due to Hemodynamics from CHF 3. Acute CHF exacerbation , acute on chronic, systolic and Diastolic 4.Cardiomyopathy with EF 50% 5. 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 H/O HTN 7. H/o DM II- Hgb AIC 7.7 8. H/o HL 9. Hypertensive emergency s/p NTG drip 10. Anemia of ESRD Plan: Started on HD on 07/04/19- Pt has Femoral juan In place, S/p HD x 2 days in a row, will plan for another HD on Friday - then keep he on MWF schedule IR guided Permacath placement requested HIV, hepatitis panel negative, , outpatient HD placement confirmed at [facility] at 12 pm Epogen 6000 units SQ MWF, will check iron panel, Ferritin with AM labs will follow up Consultation Date/Type/Reason Admit Date/Time Jul 02, 2019 at 03:33 Initial Consult Date 07/02/19 Type of Consult NEPHROLOGY Requesting Provider: EDELMIRA ONTIVEROS MD Date/Time of Note DATE: 07/06/19 TIME: 17:19 Exam/Review of Systems Exam Vitals Vital Signs Date Temp Pulse Resp B/P (MAP) Pulse Ox O2 O2 Flow FiO2 Time Delivery Rate 07/06/19 98.0 81 18 137/67 91 15:59 (90) 07/06/19 Nasal 2.0 08:00 Cannula 07/03/19 33 05:00 Intake and Output 07/05/19 07/05/19 07/06/19 1515:00 23:00 07:00 IntakeIntake Total 500 ml 250 ml OutputOutput Total 2650 ml 100 ml BalanceBalance 500 ml -2400 ml -100 ml Exam Constitutional: mild to moderate distress Respiratory: crackles/rales, diminished breath sounds Cardiovascular: regular rate and rhythm, nl pulses Gastrointestinal: soft, non-tender Musculoskeletal: muscle weakness, swelling (2-3+ LE pitting edema ) Extremities: normal pulses Neurological: BAKERY DELIVERER II-XII intact, nl mental status, nl speech, nl strength Results Result Diagram: 07/06/19 0631 07/06/19 0631 Results 24hrs Laboratory Tests Test 07/05/19 17:41 07/05/19 21:38 07/06/19 01:36 07/06/19 06:31 Bedside Glucose 92 124 114 White Blood Count 6.4 Red Blood Count 3.33 L Hemoglobin 7.5 L Hematocrit 26.0 L Mean Corpuscular 78.1 L Volume Mean Corpuscular 22.5 L Hemoglobin Mean Corpuscular 28.8 L Hemoglobin Concent Red Cell 17.2 H Distribution Width Platelet Count 310 Mean Platelet Volume 10.2 Immature 0.600 H Granulocytes % Neutrophils % 78.4 H Lymphocytes % 8.7 L Monocytes % 9.0 Eosinophils % 2.8 Basophils % 0.5 Nucleated Red Blood 1.3 H Cells % Immature 0.040 H Granulocytes # Neutrophils # 5.0 Lymphocytes # 0.6 L Monocytes # 0.6 Eosinophils # 0.2 Basophils # 0.0 Nucleated Red Blood 0.1 H Cells # Sodium Level 138 Potassium Level 4.5 Chloride Level 103 Carbon Dioxide Level 26 Anion Gap 9 Blood Urea Nitrogen 54 H Creatinine 5.51 H Est Glomerular 8 L Filtrat Rate mL/min Glucose Level 44 #*L Calcium Level 7.5 L Phosphorus Level 7.8 H Magnesium Level 2.0 Vitamin B12 Level 948 H Folate 9.2 Test 07/06/19 06:32 07/06/19 08:02 07/06/19 08:16 07/06/19 08:31 Iron Level < 10 L Total Iron Binding 293 Capacity Percent Iron Saturation Bedside Glucose 49 *L 230 H 138 Test 07/06/19 12:00 07/06/19 12:09 07/06/19 12:25 07/06/19 12:57 Bedside Glucose 48 *L 265 H 150 117 Test 07/06/19 17:08 Bedside Glucose 139 Medications Medication Current Medications Morphine Sulfate (morphine) 2 mg Q3 PRN IV PAIN LEVEL 6-10 Last administered on 07/04/19at 03:48; Admin Dose 2 MG; Start 07/02/19 at 06:00 Ondansetron HCl (Zofran Inj) 4 mg Q6H PRN IV NAUSEA; Start 07/02/19 at 08:30 Acetaminophen (Tylenol Tab) 1,000 mg Q6H PRN PO FEVER Last administered on 07/02/19at 21:11; Admin Dose 1,000 MG; Start 07/02/19 at 08:30 Zolpidem Tartrate (Ambien) 5 mg HS MAY REPEAT X 1 PRN PO INSOMNIA; Start 07/02/19 at 10:00 Atorvastatin Calcium (Lipitor) 20 mg QHS PO Last administered on 07/05/19at 2 1:42; Admin Dose 20 MG; Start 07/02/19 at 21:00 Miscellaneous Information 1 ea NOTE XX ; Start 07/02/19 at 10:30 Glucose (Glutose) 15 gm Q15M PRN PO DECREASED GLUCOSE; Start 07/02/19 at 10:30 Glucose (Glutose) 22.5 gm Q15M PRN PO DECREASED GLUCOSE; Start 07/02/19 at 10:30 Dextrose (D50w Syringe) 25 ml Q15M PRN IV DECREASED GLUCOSE; Start 07/02/19 at 10:30 Dextrose (D50w Syringe) 50 ml Q15M PRN IV DECREASED GLUCOSE Last administered on 07/06/19at 12:05; Admin Dose 50 ML; Start 07/02/19 at 10:30 Glucagon (Glucagen) 1 mg Q15M PRN IM DECREASED GLUCOSE; Start 07/02/19 at 10:30 Glucose (Glutose) 15 gm Q15M PRN BUCCAL DECREASED GLUCOSE; Start 07/02/19 at 10:30 Hydralazine HCl (Apresoline) 10 mg Q4H PRN IV ELEVATED BLOOD PRESSURE Last administered on 07/02/19at 16:38; Admin Dose 10 MG; Start 07/02/19 at 11:30 Lorazepam (Ativan) 1 mg Q8H PRN PO ANXIETY; Start 07/02/19 at 17:30 Albumin Human 100 ml @ 100 mls/hr WITH DIALYSIS PRN IV SBP <90 DURING DIALYSIS Last administered on 07/05/19at 16:25; Admin Dose 100 MLS/HR; Start 07/03/19 at 12:00 Heparin Sodium (Porcine) (Heparin (1000 Units/ml)) 4,000 unit AFTER DIALYSIS CATHETER ; Start 07/05/19 at 01:00 Insulin Glargine (Lantus) 20 units QHS SC Last administered on 07/05/19at 21:53; Admin Dose 20 UNITS; Start 07/04/19 at 21:00 Carvedilol (Coreg) 6.25 mg BID PO Last administered on 07/06/19 08:13; Admin Dose 6.25 MG; Start 07/05/19 at 21:00 Hydralazine HCl (Apresoline) 25 mg BID PO Last administered on 07/06/19at 08:13; Admin Dose 25 MG; Start 07/05/19 at 21:00 Heparin Sodium (Porcine) (Heparin (1000 Units/ml)) 2,800 unit AFTER DIALYSIS C ATHETER Last administered on 07/05/19at 19:42; Admin Dose 2,800 UNIT; Start 07/05/19 at 19:30 Heparin Sodium (Porcine) (Heparin (5000 Units/1ml)) 5,000 unit BID SC Last administered on 07/06/19 08:19; Admin Dose 5,000 UNIT; Start 07/05/19 at 21:00 Diagnostic Test (Pha) (Accu-Chek) 1 ea 02 XX ; Start 07/07/19 at 02:00 Ferric Sodium Gluconate Complex 125 mg/Sodium Chloride 110 ml @ 110 mls/hr DA MARI@1300 IVPB Last administered on 07/06/19at 15:43; Admin Dose 110 MLS/HR; Start 07/06/19 at 13:00; Stop 07/10/19 at 13:59 Dextrose/Sodium Chloride 1,000 ml @ 50 mls/hr Q20H IV Last administered on 07/06/19at 15:43; Admin Dose 50 MLS/HR; Start 07/06/19 at 13:00 Insulin Aspart (Novolog Insulin Pen) NOVOLOG *MILD* ALGORITHM WITH MEALS BEDTIME SC ; Start 07/06/19 at 17:55 ALEJANDRO REMY MD Jul 06, 2019 17:19
--- NOTE | 2019-07-06 17:47 | PN ---
Date/Time of Note Date/Time of Note DATE: 07/06/19 TIME: 17:44 Assessment/Plan VTE Prophylaxis Risk score (from Ns)>0 risk: 8 SCD applied (from Ns): No SCD contraindicated: other Pharmacological prophylaxis: heparin Lines/Catheters IV Catheter Type (from [facility]): Louie Urinary Cath still in place: Yes Reason Cath still needed: terminal illness/intractable pain Assessment/Plan Hospital Course 44 f with CKD V and CHF who presented with respiratory failure with hypoxia in the setting of acute exacerbation of chronic Combined SD CHF and volume overload. She was started on HD on this admission for the first time and SOB si gnificantly improved . Her cardiac work up for ischemia including NM stress test was unremarkable . She is awaiting perm cath placement tomorrow. #Reps failure with hypoxia in the setting of acute exacerbation of Combined SD CHF and volume overload - wean O2 as tolerated - HD and UF # CKD V --> ESRD on HD - HD chair secured, Hep panel negative #Acute acute exacerbation of chronic Combined SD CHF - NM test negative #DM on inslin - Lantus and sliding scale #Anemia in ESRD #Iron deficiency - EPO per nephrology - IV Iron , PO on DC # PPX: Heparin an Pepcid Result Diagram: 07/06/19 0631 07/06/19 0631 Results 24hrs Laboratory Tests Test 07/05/19 21:38 07/06/19 01:36 07/06/19 06:31 07/06/19 06:32 Bedside Glucose 124 114 White Blood Count 6.4 Red Blood Count 3.33 L Hemoglobin 7.5 L Hematocrit 26.0 L Mean Corpuscular 78.1 L Volume Mean Corpuscular 22.5 L Hemoglobin Mean Corpuscular 28.8 L Hemoglobin Concent Red Cell 17.2 H Distribution Width Platelet Count 310 Mean Platelet Volume 10.2 Immature 0.600 H Granulocytes % Neutrophils % 78.4 H Lymphocytes % 8.7 L Monocytes % 9.0 Eosinophils % 2.8 Basophils % 0.5 Nucleated Red Blood 1.3 H Cells % Immature 0.040 H Granulocytes # Neutrophils # 5.0 Lymphocytes # 0.6 L Monocytes # 0.6 Eosinophils # 0.2 Basophils # 0.0 Nucleated Red Blood 0.1 H Cells # Sodium Level 138 Potassium Level 4.5 Chloride Level 103 Carbon Dioxide Level 26 Anion Gap 9 Blood Urea Nitrogen 54 H Creatinine 5.51 H Est Glomerular 8 L Filtrat Rate mL/min Glucose Level 44 #*L Calcium Level 7.5 L Phosphorus Level 7.8 H Magnesium Level 2.0 Vitamin B12 Level 948 H Folate 9.2 Iron Level < 10 L Total Iron Binding 293 Capacity Percent Iron Saturation Test 07/06/19 08:02 07/06/19 08:16 07/06/19 08:31 07/06/19 12:00 Bedside Glucose 49 *L 230 H 138 48 *L Test 07/06/19 12:09 07/06/19 12:25 07/06/19 12:57 07/06/19 17:08 Bedside Glucose 265 H 150 117 139 Subjective 24 Hr Interval Summary Free Text/Dictation SOB and peripheral edema has improved significantly Exam/Review of Systems Exam Vitals Vital Signs Date Temp Pulse Resp B/P (MAP) Pulse Ox O2 O2 Flow FiO2 Time Delivery Rate 07/06/19 98.0 81 18 137/67 91 15:59 (90) 07/06/19 Nasal 2.0 08:00 Cannula 07/03/19 33 05:00 Intake and Output 07/05/19 07/05/19 07/06/19 1515:00 23:00 07:00 IntakeIntake Total 500 ml 250 ml OutputOutput Total 2650 ml 100 ml BalanceBalance 500 ml -2400 ml -100 ml Exam Constitutional: alert, oriented, well developed Psych: no complaints, nl mood/affect Head: normocephalic, atraumatic Eyes: nl conjunctiva, EOMI, nl lids, nl sclera, PERRL ENMT: nl external ears & nose, nl lips & teeth, nl nasal mucosa & septum Neck: supple, non-tender Respiratory: crackles/rales Cardiovascular: regular rate and rhythm, nl pulses Gastrointestinal: soft, nl liver, spleen, non-tender Musculoskeletal: nl extremities to inspection, nl gait and stance Extremities: normal pulses, edema, pitting pedal edema Neurological: WAREHOUSE CHECKER II-XII intact, nl mental status, nl speech, nl strength Results Results 24hrs Laboratory Tests Test 07/05/19 21:38 07/06/19 01:36 07/06/19 06:31 07/06/19 06:32 Bedside Glucose 124 114 White Blood Count 6.4 Red Blood Count 3.33 L Hemoglobin 7.5 L Hematocrit 26.0 L Mean Corpuscular 78.1 L Volume Mean Corpuscular 22.5 L Hemoglobin Mean Corpuscular 28.8 L Hemoglobin Concent Red Cell 17.2 H Distribution Width Platelet Count 310 Mean Platelet Volume 10.2 Immature 0.600 H Granulocytes % Neutrophils % 78.4 H Lymphocytes % 8.7 L Monocytes % 9.0 Eosinophils % 2.8 Basophils % 0.5 Nucleated Red Blood 1.3 H Cells % Immature 0.040 H Granulocytes # Neutrophils # 5.0 Lymphocytes # 0.6 L Monocytes # 0.6 Eosinophils # 0.2 Basophils # 0.0 Nucleated Red Blood 0.1 H Cells # Sodium Level 138 Potassium Level 4.5 Chloride Level 103 Carbon Dioxide Level 26 Anion Gap 9 Blood Urea Nitrogen 54 H Creatinine 5.51 H Est Glomerular 8 L Filtrat Rate mL/min Glucose Level 44 #*L Calcium Level 7.5 L Phosphorus Level 7.8 H Magnesium Level 2.0 Vitamin B12 Level 948 H Folate 9.2 Iron Level < 10 L Total Iron Binding 293 Capacity Percent Iron Saturation Test 07/06/19 08:02 07/06/19 08:16 07/06/19 08:31 07/06/19 12:00 Bedside Glucose 49 *L 230 H 138 48 *L Test 07/06/19 12:09 07/06/19 12:25 07/06/19 12:57 07/06/19 17:08 Bedside Glucose 265 H 150 117 139 Medications Medication Current Medications Morphine Sulfate (morphine) 2 mg Q3 PRN IV PAIN LEVEL 6-10 Last administered on 07/04/19at 03:48; Admin Dose 2 MG; Start 07/02/19 at 06:00 Ondansetron HCl (Zofran Inj) 4 mg Q6H PRN IV NAUSEA; Start 07/02/19 at 08:30 Acetaminophen (Tylenol Tab) 1,000 mg Q6H PRN PO FEVER Last administered on 07/02/19at 21:11; Admin Dose 1,000 MG; Start 07/02/19 at 08:30 Zolpidem Tartrate (Ambien) 5 mg HS MAY REPEAT X 1 PRN PO INSOMNIA; Start 07/02/19 at 10:00 Atorvastatin Calcium (Lipitor) 20 mg QHS PO Last administered on 07/05/19at 21:42; Admin Dose 20 MG; Start 07/02/19 at 21:00 Miscellaneous Information 1 ea NOTE XX ; Start 07/02/19 at 10:30 Glucose (Glutose) 15 gm Q15M PRN PO DECREASED GLUCOSE; Start 07/02/19 at 10:30 Glucose (Glutose) 22.5 gm Q15M PRN PO DECREASED GLUCOSE; Start 07/02/19 at 10:30 Dextrose (D50w Syringe) 25 ml Q15M PRN IV DECREASED GLUCOSE; Start 07/02/19 at 10:30 Dextrose (D50w Syringe) 50 ml Q15M PRN IV DECREASED GLUCOSE Last administered on 07/06/19at 12:05; Admin Dose 50 ML; Start 07/02/19 at 10:30 Glucagon (Glucagen) 1 mg Q15M PRN IM DECREASED GLUCOSE; Start 07/02/19 at 10:30 Glucose (Glutose) 15 gm Q15M PRN BUCCAL DECREASED GLUCOSE; Start 07/02/19 at 10:30 Hydralazine HCl (Apresoline) 10 mg Q4H PRN IV ELEVATED BLOOD PRESSURE Last administered on 07/02/19at 16:38; Admin Dose 10 MG; Start 07/02/19 at 11:30 Lorazepam (Ativan) 1 mg Q8H PRN PO ANXIETY; Start 07/02/19 at 17:30 Albumin Human 100 ml @ 100 mls/hr WITH DIALYSIS PRN IV SBP <90 DURING DIALYSIS Last administered on 07/05/19at 16:25; Admin Dose 100 MLS/HR; Start 07/03/19 at 12:00 Heparin Sodium (Porcine) (Heparin (1000 Units/ml)) 4,000 unit AFTER DIALYSIS CATHETER ; Start 07/05/19 at 01:00 Insulin Glargine (Lantus) 20 units QHS SC Last administered on 07/05/19at 21:53; Admin Dose 20 UNITS; Start 07/04/19 at 21:00 Carvedilol (Coreg) 6.25 mg BID PO Last administered on 07/06/19 08:13; Admin Dose 6.25 MG; Start 07/05/19 at 21:00 Hydralazine HCl (Apresoline) 25 mg BID PO Last administered on 07/06/19at 08:13; Admin Dose 25 MG; Start 07/05/19 at 21:00 Heparin Sodium (Porcine) (Heparin (1000 Units/ml)) 2,800 unit AFTER DIALYSIS CATHETER Last administered on 07/05/19at 19:42; Admin Dose 2,800 UNIT; Start 07/05/19 at 19:30 Heparin Sodium (Porcine) (Heparin (5000 Units/1ml)) 5,000 unit BID SC Last administered on 07/06/19at 08:19; Admin Dose 5,000 UNIT; Start 07/05/19 at 21:00 Diagnostic Test (Pha) (Accu-Chek) 1 ea 02 XX ; Start 07/07/19 at 02:00 Ferric Sodium Gluconate Complex 125 mg/Sodium Chloride 110 ml @ 110 mls/hr DAILY@1300 IVPB Last administered on 07/06/19at 15:43; Admin Dose 110 MLS/HR; Start 07/06/19 at 13:00; Stop 07/10/19 at 13:59 Dextrose/Sodium Chloride 1,000 ml @ 50 mls/hr Q20H IV Last administered on 07/06/19at 15:43; Admin Dose 50 MLS/HR; Start 07/06/19 at 13:00 Insulin Aspart (Novolog Insulin Pen) NOVOLOG *MILD* ALGORITHM WITH MEALS BEDTIME SC ; Start 07/06/19 at 17:55 DMITRI ULLOA MD Jul 06, 2019 17:47
[2019-07-06 20:22] VITALS: BP 140/71; PULSE 64; RESP 18
[2019-07-06] MEDS: ATORVASTATIN 20 MG TAB PO SCH (20:40)
[2019-07-06] MEDS: INSULIN GLARGINE [LANTus] (100 UNITS/ML) SYG SC SCH (21:00)
[2019-07-06] MEDS: ACETAMINOPHEN 500 MG TAB PO PRN (23:34)
[2019-07-07] VITALS (21 sets, daily range): BP systolic 123–196; BP diastolic 61–102; PULSE 65–97; RESP 18–20
[2019-07-07] MEDS: ACCU-CHEK XX SCH (02:00)
[2019-07-07] MEDS ORDERED: ACCU-CHEK XX SCH (02:00)
--- NOTE | 2019-07-07 07:22 | CONS ---
Assessment/Plan Cardiology NYHA: II Heart Failure Type: Acute on Chronic Heart Failure Type: Both Assessment/Plan Assessment/Plan (Daily) Assessment Acute decompensated systolic and diastolic congestive heart failure Cardiomyopathy with left ventricular ejection fraction 50% Chronic kidney disease initiated on hemodialysis Hypertension urgency, resolved No ischemia nuclear cardiac perfusion study 07/06/2019 Diabetes Plan: no change in cardiac regimen dw patient Consultation Date/Type/Reason Admit Date/Time Jul 02, 2019 at 03:33 Initial Consult Date 07/02/19 Type of Consult Cardiology Requesting Provider: EDELMIRA ONTIVEROS MD Date/Time of Note DATE: 07/07/19 TIME: 07:21 24 HR Interval Summary Free Text/Dictation no chest pain, no sob Detailed Summary Respiratory: no complaints Cardiovascular: no complaints Gastrointestinal: no complaints Musculoskeletal: no complaints Skin: no complaints Neurologic: no complaints Exam/Review of Systems Vital Signs Vitals Vital Signs Date Temp Pulse Resp B/P (MAP) Pulse Ox O2 O2 Flow FiO2 Time Delivery Rate 07/07/19 98.1 65 20 123/61 91 04:18 (81) 07/07/19 2.0 00:04 07/06/19 Nasal 20:00 Cannula Intake and Output 07/06/19 07/06/19 07/07/19 1515:00 23:00 07:00 IntakeIntake Total 380 ml OutputOutput Total 150 ml 450 ml BalanceBalance 230 ml -450 ml Exam Constitutional: alert, oriented Head: normocephalic, atraumatic Neck: supple Respiratory: clear to auscultation Cardiovascular: regular rate and rhythm Gastrointestinal: soft Musculoskeletal: nl extremities to inspection Extremities: normal pulses Labs Result Diagram: 07/07/19 0652 07/06/19 0631 Results 24hrs Laboratory Tests Test 07/06/19 08:02 07/06/19 08:16 07/06/19 08:31 07/06/19 12:00 Bedside Glucose 49 *L 230 H 138 48 *L Test 07/06/19 12:09 07/06/19 12:25 07/06/19 12:57 07/06/19 17:08 Bedside Glucose 265 H 150 117 139 Test 07/06/19 20:42 07/07/19 06:52 Bedside Glucose 133 White Blood Count 6.4 Red Blood Count 3.37 L Hemoglobin 7.6 L Hematocrit 26.8 L Mean Corpuscular 79.5 L Volume Mean Corpuscular 22.6 L Hemoglobin Mean Corpuscular 28.4 L Hemoglobin Concent Red Cell 17.2 H Distribution Width Platelet Count 291 Mean Platelet Volume 9.8 Immature 0.800 H Granulocytes % Neutrophils % 78.5 H Lymphocytes % 9.2 L Monocytes % 8.4 Eosinophils % 2.8 Basophils % 0.3 Nucleated Red Blood 2.6 H Cells % Immature 0.050 H Granulocytes # Neutrophils # 5.1 Lymphocytes # 0.6 L Monocytes # 0.5 Eosinophils # 0.2 Basophils # 0.0 Nucleated Red Blood 0.2 H Cells # Medications Medications Current Medications Morphine Sulfate (morphine) 2 mg Q3 PRN IV PAIN LEVEL 6-10 Last administered on 07/04/19at 03:48; Admin Dose 2 MG; Start 07/02/19 at 06:00 Ondansetron HCl (Zofran Inj) 4 mg Q6H PRN IV NAUSEA; Start 07/02/19 at 08:30 Acetaminophen (Tylenol Tab) 1,000 mg Q6H PRN PO FEVER Last administered on 07/06/19at 23:34; Admin Dose 1,000 MG; Start 07/02/19 at 08:30 Zolpidem Tartrate (Ambien) 5 mg HS MAY REPEAT X 1 PRN PO INSOMNIA; Start 07/02/19 at 10:00 Atorvastatin Calcium (Lipitor) 20 mg QHS PO Last administered on 07/06/19at 20:40; Admin Dose 20 MG; Start 07/02/19 at 21:00 Miscellaneous Information 1 ea NOTE XX ; Start 07/02/19 at 10:30 Glucose (Glutose) 15 gm Q15M PRN PO DECREASED GLUCOSE; Start 07/02/19 at 10:30 Glucose (Glutose) 22.5 gm Q15M PRN PO DECREASED GLUCOSE; Start 07/02/19 at 10:30 Dextrose (D50w Syringe) 25 ml Q15M PRN IV DECREASED GLUCOSE; Start 07/02/19 at 10:30 Dextrose (D50w Syringe) 50 ml Q15M PRN IV DECREASED GLUCOSE Last administered on 07/06/19at 12:05; Admin Dose 50 ML; Start 07/02/19 at 10:30 Glucagon (Glucagen) 1 mg Q15M PRN IM DECREASED GLUCOSE; Start 07/02/19 at 10:30 Glucose (Glutose) 15 gm Q15M PRN BUCCAL DECREASED GLUCOSE; Start 07/02/19 at 10:30 Hydralazine HCl (Apresoline) 10 mg Q4H PRN IV ELEVATED BLOOD PRESSURE Last administered on 07/02/19 16:38; Admin Dose 10 MG; Start 07/02/19 at 11:30 Lorazepam (Ativan) 1 mg Q8H PRN PO ANXIETY; Start 07/02/19 at 17:30 Albumin Human 100 ml @ 100 mls/hr WITH DIALYSIS PRN IV SBP <90 DURING DIALYSIS Last administered on 07/05/19 16:25; Admin Dose 100 MLS/HR; Start 07/03/19 at 12:00 Heparin Sodium (Porcine) (Heparin (1000 Units/ml)) 4,000 unit AFTER DIALYSIS CATHETER ; Start 07/05/19 at 01:00 Insulin Glargine (Lantus) 20 units QHS SC Last administered on 07/05/19 21:53; Admin Dose 20 UNITS; Start 07/04/19 at 21:00 Carvedilol (Coreg) 6.25 mg BID PO Last administered on 07/06/19 20:40; Admin Dose 6.25 MG; Start 07/05/19 at 21:00 Hydralazine HCl (Apresoline) 25 mg BID PO Last administered on 07/06/19 20:41; Admin Dose 25 MG; Start 07/05/19 at 21:00 Heparin Sodium (Porcine) (Heparin (1000 Units/ml)) 2,800 unit AFTER DIALYSIS CATHETER Last administered on 07/05/19 19:42; Admin Dose 2,800 UNIT; Start 07/05/19 at 19:30 Heparin Sodium (Porcine) (Heparin (5000 Units/1ml)) 5,000 unit BID SC Last administered on 07/06/19 20:54; Admin Dose 5,000 UNIT; Start 07/05/19 at 21:00 Diagnostic Test (Pha) (Accu-Chek) 1 ea 02 XX ; Start 07/07/19 at 02:00 Ferric Sodium Gluconate Complex 125 mg/Sodium Chloride 110 ml @ 110 mls/hr DAILY@1300 IVPB Last administered on 07/06/19 15:43; Admin Dose 110 MLS/HR; Start 07/06/19 at 13:00; Stop 8/17/19 at 13:59 Dextrose/Sodium Chloride 1,000 ml @ 50 mls/hr Q20H IV Last administered on 07/06/19at 15:43; Admin Dose 50 MLS/HR; Start 07/06/19 at 13:00 Insulin Aspart (Novolog Insulin Pen) NOVOLOG *MILD* ALGORITHM WITH MEALS BEDTIME SC ; Start 07/06/19 at 17:55 Epoetin Nino-epbx (Retacrit (Esrd)) 6,000 unit MoWeFr@1700 SC ; Start 07/07/19 at 17:00 JULIA ROWELL MD Jul 07, 2019 07:22
[2019-07-07] MEDS: INSULIN ASPART [NOVOLOG] 3 ML PEN SC SCH ×4 (07:43→20:36)
[2019-07-07] MEDS ORDERED: LIDOCAINE 1% (MDV) 20 ML INJ ONE ×2 (07:46→08:29)
[2019-07-07] MEDS ORDERED: FENTAnyl 50 MCG/ML VIAL ONE (08:08)
--- NOTE | 2019-07-07 08:25 | CONS ---
Assessment/Plan Assessment/Plan Assessment/Plan (Daily) 1. acute hyperkalemia- 5.6 due to JEOVANY on CKD IV - resolved with HD initiation 2. Acute kidney injury on CKD IV due to Hemodynamics from CHF 3. Acute CHF exacerbation , acute on chronic, systolic and Diastolic 4.Cardiomyopathy with EF 50% 5. 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 H/O HTN 7. H/o DM II- Hgb AIC 7.7 8. H/o HL 9. Hypertensive emergency s/p NTG drip 10. Anemia of ESRD Plan: Started on HD on 07/04/19- s/p Permacath placement on 07/07/19- will plan for HD today and then pt can go home will have Nurse to remove her Temporary juan catheter before d/c HIV, hepatitis panel negative, , outpatient HD placement confirmed at [facility] at 12 pm MWF Epogen 6000 units SQ MWF will follow up Consultation Date/Type/Reason Admit Date/Time Jul 02, 2019 at 03:33 Initial Consult Date 07/02/19 Type of Consult NEPHROLOGY Requesting Provider: EDELMIRA ONTIVEROS MD Date/Time of Note DATE: 07/07/19 TIME: 08:24 Exam/Review of Systems Exam Vitals Vital Signs Date Temp Pulse Resp B/P (MAP) Pulse Ox O2 O2 Flow FiO2 Time Delivery Rate 07/07/19 98.1 65 20 123/61 91 04:18 (81) 07/07/19 2.0 00:04 07/06/19 Nasal 20:00 Cannula Intake and Output 07/06/19 07/06/19 07/07/19 1515:00 23:00 07:00 IntakeIntake Total 380 ml OutputOutput Total 150 ml 450 ml BalanceBalance 230 ml -450 ml Exam Constitutional: alert awake, no acute distress Respiratory: crackles/rales, diminished breath sounds Cardiovascular: regular rate and rhythm, nl pulses Gastrointestinal: soft, non-tender Musculoskeletal: muscle weakness, swelling (1-2+ LE pitting edema ) Extremities: normal pulses Neurological: LAND E[employer]OMIST II-XII intact, nl mental status, nl speech, nl strength Results Result Diagram: 07/07/19 0652 07/07/19 0652 Results 24hrs Laboratory Tests Test 07/06/19 08:31 07/06/19 12:00 07/06/19 12:09 07/06/19 12:25 Bedside Glucose 138 48 *L 265 H 150 Test 07/06/19 12:57 07/06/19 17:08 07/06/19 20:42 07/07/19 06:52 Bedside Glucose 117 139 133 White Blood Count 6.4 Red Blood Count 3.37 L Hemoglobin 7.6 L Hematocrit 26.8 L Mean Corpuscular 79.5 L Volume Mean Corpuscular 22.6 L Hemoglobin Mean Corpuscular 28.4 L Hemoglobin Concent Red Cell 17.2 H Distribution Width Platelet Count 291 Mean Platelet Volume 9.8 Immature 0.800 H Granulocytes % Neutrophils % 78.5 H Lymphocytes % 9.2 L Monocytes % 8.4 Eosinophils % 2.8 Basophils % 0.3 Nucleated Red Blood 2.6 H Cells % Immature 0.050 H Granulocytes # Neutrophils # 5.1 Lymphocytes # 0.6 L Monocytes # 0.5 Eosinophils # 0.2 Basophils # 0.0 Nucleated Red Blood 0.2 H Cells # Prothrombin Time 14.5 Prothrombin Time 1.1 Ratio INR International 1.12 Normalized Ratio Activated 34.6 Partial Thromboplast Time Sodium Level 139 Potassium Level 4.7 Chloride Level 104 Carbon Dioxide Level 25 Anion Gap 10 Blood Urea Nitrogen 62 H Creatinine 6.26 H Est Glomerular 7 L Filtrat Rate mL/min Glucose Level 99 # Calcium Level 7.4 L Magnesium Level 2.1 Iron Level 69 # Total Iron Binding 311 Capacity Percent Iron 22 Saturation Total Bilirubin 0.2 Direct Bilirubin 0.00 Indirect Bilirubin 0.2 Aspartate Amino 25 Transf (AST/SGOT) Alanine 22 Aminotransferase (AL T/SGPT) Alkaline Phosphatase 97 Total Protein 6.4 Albumin 3.0 L Globulin 3.40 H Albumin/Globulin 0.88 Ratio Test 07/07/19 06:53 Phosphorus Level 8.2 H Medications Medication Current Medications Morphine Sulfate (morphine) 2 mg Q3 PRN IV PAIN LEVEL 6-10 Last administered on 07/04/19at 03:48; Admin Dose 2 MG; Start 07/02/19 at 06:00 Ondansetron HCl (Zofran Inj) 4 mg Q6H PRN IV NAUSEA; Start 07/02/19 at 08:30 Acetaminophen (Tylenol Tab) 1,000 mg Q6H PRN PO FEVER Last administered on 07/06/19at 23:34; Admin Dose 1,000 MG; Start 07/02/19 at 08:30 Zolpidem Tartrate (Ambien) 5 mg HS MAY REPEAT X 1 PRN PO INSOMNIA; Start 07/02/19 at 10:00 Atorvastatin Calcium (Lipitor) 20 mg QHS PO Last administered on 07/06/19at 20:40; Admin Dose 20 MG; Start 07/02/19 at 21:00 Miscellaneous Information 1 ea NOTE XX ; Start 07/02/19 at 10:30 Glucose (Glutose) 15 gm Q15M PRN PO DECREASED GLUCOSE; Start 07/02/19 at 10:30 Glucose (Glutose) 22.5 gm Q15M PRN PO DECREASED GLUCOSE; Start 07/02/19 at 10:30 Dextrose (D50w Syringe) 25 ml Q15M PRN IV DECREASED GLUCOSE; Start 07/02/19 at 10:30 Dextrose (D50w Syringe) 50 ml Q15M PRN IV DECREASED GLUCOSE Last administered on 07/06/19at 12:05; Admin Dose 50 ML; Start 07/02/19 at 10:30 Glucagon (Glucagen) 1 mg Q15M PRN IM DECREASED GLUCOSE; Start 07/02/19 at 10:30 Glucose (Glutose) 15 gm Q15M PRN BUCCAL DECREASED GLUCOSE; Start 07/02/19 at 10:30 Hydralazine HCl (Apresoline) 10 mg Q4H PRN IV ELEVATED BLOOD PRESSURE Last administered on 07/02/19at 16:38; Admin Dose 10 MG; Start 07/02/19 at 11:30 Lorazepam (Ativan) 1 mg Q8H PRN PO ANXIETY; Start 07/02/19 at 17:30 Albumin Human 100 ml @ 100 mls/hr WITH DIALYSIS PRN IV SBP <90 DURING DIALYSIS Last administered on 07/05/19at 16:25; Admin Dose 100 MLS/HR; Start 07/03/19 at 12:00 Heparin Sodium (Porcine) (Heparin (1000 Units/ml)) 4,000 unit AFTER DIALYSIS CATHETER ; Start 07/05/19 at 01:00 Insulin Glargine (Lantus) 20 units QHS SC Last administered on 07/05/19at 21:53; Admin Dose 20 UNITS; Start 07/04/19 at 21:00 Carvedilol (Coreg) 6.25 mg BID PO Last administered on 07/06/19 20:40; Admin Dose 6.25 MG; Start 07/05/19 at 21:00 Hydralazine HCl (Apresoline) 25 mg BID PO Last administered on 07/06/19 20:41; Admin Dose 25 MG; Start 07/05/19 at 21:00 Heparin Sodium (Porcine) (Heparin (1000 Units/ml)) 2,800 unit AFTER DIALYSIS CATHETER Last administered on 07/05/19 19:42; Admin Dose 2,800 UNIT; Start 07/05/19 at 19:30 Heparin Sodium (Porcine) (Heparin (5000 Units/1ml)) 5,000 unit BID SC Last administered on 07/06/19 20:54; Admin Dose 5,000 UNIT; Start 07/05/19 at 21:00 Diagnostic Test (Pha) (Accu-Chek) 1 ea 02 XX ; Start 07/07/19 at 02:00 Ferric Sodium Gluconate Complex 125 mg/Sodium Chloride 110 ml @ 110 mls/hr DAILY@1300 IVPB Last administered on 07/06/19 15:43; Admin Dose 110 MLS/HR; Start 07/06/19 at 13:00; Stop 07/10/19 at 13:59 Dextrose/Sodium Chloride 1,000 ml @ 50 mls/hr Q20H IV Last administered on 07/06/19at 15:43; Admin Dose 50 MLS/HR; Start 07/06/19 at 13:00 Insulin Aspart (Novolog Insulin Pen) NOVOLOG *MILD* ALGORITHM WITH MEALS BEDTIME SC ; Start 07/06/19 at 17:55 Epoetin Nino-epbx (Retacrit (Esrd)) 6,000 unit MoWeFr@1700 SC ; Start 07/07/19 at 17:00 ALEJANDRO REMY MD Jul 07, 2019 08:24
[2019-07-07] MEDS ORDERED: SOD CHLORIDE 0.9% 500 ML ONE (08:29)
[2019-07-07] MEDS ORDERED: HEPARIN 1000 UNITS/ML 10 ML INJ ONE (08:29)
[2019-07-07] MEDS ORDERED: CEFAZOLIN 1 GM/50 ML (PMX) 50 ML IVPB ONE (08:29)
[2019-07-07] MEDS: DEXTROSE 5%-0.9% NACL 1,000 ML IV SCH (09:00)
[2019-07-07] MEDS: HEPARIN 5,000 UNIT/1 ML VIAL SC SCH ×2 (09:00→20:44)
--- NOTE | 2019-07-07 09:30 | RADRPT ---
PROCEDURE: RIGHT IJ PERMACATH PLACEMENT CLINICAL INDICATION: renal failure TECHNIQUE: Informed consent was obtained from the patient following careful explanation of the risks and benefit s of the procedure. Versed and Fentanyl were administered by the radiology nurse who monitored the patient. Conscious sedation time: 15 min Ancef 1 g was administered preoperatively. Fluoroscopy time: 0.1 min Number of images/cine sequences: 1 The patient was placed supine on the angiographic table and the right side of the neck and anterior c hest wall were prepped and draped in the usual sterile fashion. 1% lidocaine with lidocaine was util ized for local anesthesia. This central venous catheter was inserted with all elements of maximal sterile barrier technique, cap AND mask AND sterile gown AND sterile gloves AND sterile full-body drape AND hand hygiene AND 2% chl orhexidine for cutaneous antisepsis. Sterile Ultrasound technique with sterile gel and sterile probe covers was also utilized. Under direct ultrasound guidance, a micropuncture needle was utilized to puncture the internal jugula r vein and a guidewire was advanced into the central veins as confirmed by fluoroscopic guidance. An ultrasound image was recorded. The needle was exchanged over the wire for an introducer which was pl aced in the jugular vein. A site in the patient's chest wall was selected and anesthetized with lidocaine. A small incision was made with a #11 blade. The catheter was then tunneled in a retrograde fashion from the incision in the chest wall towards th e puncture site in the patient's neck. The introducer in the patient's neck was exchanged over a wire for a peel-away sheath. The catheter was advanced through the peel-away sheath and the peel-away sheath was removed. The catheter was fl ushed with heparin. The catheter was sutured to the patient's skin. The incision and the neck was closed with 4-0 Vicryl . A sterile dressing was applied. The patient tolerated the procedure well. COMPARISON: None FINDINGS: Patent right internal jugular vein.. RPTAT: AA IMPRESSION: Uncomplicated placement of a 23 cm tip-to-cuff Zhang-Palindrome tunneled hemodialysis catheter with its tip overlying the mid right atrium. The catheter is ready for use.. .Red Ty MD, Date Time Electronically viewed and signed by .Red Ty MD, on 07/07/2019 09:30 .S/
[2019-07-07] MEDS: SOD FERRIC GLUC COMPLX 125 MG in SOD CHLORIDE 0.9% 100 ML IVPB SCH (12:44)
--- NOTE | 2019-07-07 16:22 | PN ---
Date/Time of Note Date/Time of Note DATE: 07/07/19 TIME: 16:20 Assessment/Plan VTE Prophylaxis Risk score (from Ns)>0 risk: 4 SCD applied (from Ns): No SCD contraindicated: other Pharmacological prophylaxis: heparin Lines/Catheters IV Catheter Type (from [facility]): permacath for HD Urinary Cath still in place: No Assessment/Plan Hospital Course 44 f with CKD V and CHF who presented with respiratory failure with hypoxia in the setting of acute exacerbation of chronic Combined SD CHF and volume overload. She was started on HD on this admission for the first time and SOB significantly improved . Her cardiac work up for ischemia including NM stress test was unremarkable . She is awaiting perm cath placement tomorrow. #Reps failure with hypoxia in the setting of acute exacerbation of Combined SD CHF and volume overload - wean O2 as tolerated now on 4 L - HD and UF - May need Home O2 on DC # CKD V --> ESRD on HD - HD chair secured, Hep panel negative #Acute acute exacerbation of chronic Combined SD CHF - NM test negative #DM on inslin - Lantus and sliding scale #Anemia in ESRD #Iron deficiency - EPO per nephrology - IV Iron , PO on DC # PPX: Heparin an Pepcid Dipso : Home when weaned off O2 Result Diagram: 07/07/19 0652 07/07/19 0652 Results 24hrs Laboratory Tests Test 07/06/19 17:08 07/06/19 20:42 07/07/19 06:52 07/07/19 06:53 Bedside Glucose 139 133 White Blood Count 6.4 Red Blood Count 3.37 L Hemoglobin 7.6 L Hematocrit 26.8 L Mean Corpuscular 79.5 L Volume Mean Corpuscular 22.6 L Hemoglobin Mean Corpuscular 28.4 L Hemoglobin Concent Red Cell 17.2 H Distribution Width Platelet Count 291 Mean Platelet Volume 9.8 Immature 0.800 H Granulocytes % Neutrophils % 78.5 H Lymphocytes % 9.2 L Monocytes % 8.4 Eosinophils % 2.8 Basophils % 0.3 Nucleated Red Blood 2.6 H Cells % Immature 0.050 H Granulocytes # Neutrophils # 5.1 Lymphocytes # 0.6 L Monocytes # 0.5 Eosinophils # 0.2 Basophils # 0.0 Nucleated Red Blood 0.2 H Cells # Prothrombin Time 14.5 Prothrombin Time 1.1 Ratio INR International 1.12 Normalized Ratio Activated 34.6 Partial Thromboplast Time Sodium Level 139 Potassium Level 4.7 Chloride Level 104 Carbon Dioxide Level 25 Anion Gap 10 Blood Urea Nitrogen 62 H Creatinine 6.26 H Est Glomerular 7 L Filtrat Rate mL/min Glucose Level 99 # Calcium Level 7.4 L Magnesium Level 2.1 Iron Level 69 # Total Iron Binding 311 Capacity Percent Iron 22 Saturation Total Bilirubin 0.2 Direct Bilirubin 0.00 Indirect Bilirubin 0.2 Aspartate Amino 25 Transf (AST/SGOT) Alanine 22 Aminotransferase (AL T/SGPT) Alkaline Phosphatase 97 Total Protein 6.4 Albumin 3.0 L Globulin 3.40 H Albumin/Globulin 0.88 Ratio Phosphorus Level 8.2 H Ferritin 48.2 Test 07/07/19 09:34 07/07/19 11:44 Bedside Glucose 102 151 Subjective 24 Hr Interval Summary Free Text/Dictation SOB improving , on 4 L O2 , awaiting HD today Exam/Review of Systems Exam Vitals Vital Signs Date Temp Pulse Resp B/P (MAP) Pulse Ox O2 O2 Flow FiO2 Time Delivery Rate 07/07/19 98.1 76 20 138/72 93 12:01 (94) 07/07/19 Nasal 2.0 09:30 Cannula Intake and Output 07/06/19 07/06/19 07/07/19 1515:00 23:00 07:00 IntakeIntake Total 380 ml OutputOutput Total 150 ml 450 ml BalanceBalance 230 ml -450 ml Exam Constitutional: alert, oriented, well developed Psych: no complaints, nl mood/affect Head: normocephalic, atraumatic Eyes: nl conjunctiva, EOMI, nl lids, nl sclera, PERRL ENMT: nl external ears & nose, nl lips & teeth, nl nasal mucosa & septum Neck: supple, non-tender Respiratory: crackles/rales Cardiovascular: regular rate and rhythm, nl pulses Gastrointestinal: soft, nl liver, spleen, non-tender Musculoskeletal: nl extremities to inspection, nl gait and stance Extremities: normal pulses, edema, pitting pedal edema Neurological: CONTROL PANEL OPERATOR II-XII intact, nl mental status, nl speech, nl strength Results Results 24hrs Laboratory Tests Test 07/06/19 17:08 07/06/19 20:42 07/07/19 06:52 07/07/19 06:53 Bedside Glucose 139 133 White Blood Count 6.4 Red Blood Count 3.37 L Hemoglobin 7.6 L Hematocrit 26.8 L Mean Corpuscular 79.5 L Volume Mean Corpuscular 22.6 L Hemoglobin Mean Corpuscular 28.4 L Hemoglobin Concent Red Cell 17.2 H Distribution Width Platelet Count 291 Mean Platelet Volume 9.8 Immature 0.800 H Granulocytes % Neutrophils % 78.5 H Lymphocytes % 9.2 L Monocytes % 8.4 Eosinophils % 2.8 Basophils % 0.3 Nucleated Red Blood 2.6 H Cells % Immature 0.050 H Granulocytes # Neutrophils # 5.1 Lymphocytes # 0.6 L Monocytes # 0.5 Eosinophils # 0.2 Basophils # 0.0 Nucleated Red Blood 0.2 H Cells # Prothrombin Time 14.5 Prothrombin Time 1.1 Ratio INR International 1.12 Normalized Ratio Activated 34.6 Partial Thromboplast Time Sodium Level 139 Potassium Level 4.7 Chloride Level 104 Carbon Dioxide Level 25 Anion Gap 10 Blood Urea Nitrogen 62 H Creatinine 6.26 H Est Glomerular 7 L Filtrat Rate mL/min Glucose Level 99 # Calcium Level 7.4 L Magnesium Level 2.1 Iron Level 69 # Total Iron Binding 311 Capacity Percent Iron 22 Saturation Total Bilirubin 0.2 Direct Bilirubin 0.00 Indirect Bilirubin 0.2 Aspartate Amino 25 Transf (AST/SGOT) Alanine 22 Aminotransferase (AL T/SGPT) Alkaline Phosphatase 97 Total Protein 6.4 Albumin 3.0 L Globulin 3.40 H Albumin/Globulin 0.88 Ratio Phosphorus Level 8.2 H Ferritin 48.2 Test 07/07/19 09:34 07/07/19 11:44 Bedside Glucose 102 151 Medications Medication Current Medications Morphine Sulfate (morphine) 2 mg Q3 PRN IV PAIN LEVEL 6-10 Last administered on 07/04/19at 03:48; Admin Dose 2 MG; Start 07/02/19 at 06:00 Ondansetron HCl (Zofran Inj) 4 mg Q6H PRN IV NAUSEA; Start 07/02/19 at 08:30 Acetaminophen (Tylenol Tab) 1,000 mg Q6H PRN PO FEVER Last administered on 07/06/19at 23:34; Admin Dose 1,000 MG; Start 07/02/19 at 08:30 Zolpidem Tartrate (Ambien) 5 mg HS MAY REPEAT X 1 PRN PO INSOMNIA; Start 07/02/19 at 10:00 Atorvastatin Calcium (Lipitor) 20 mg QHS PO Last administered on 07/06/19at 20:40; Admin Dose 20 MG; Start 07/02/19 at 21:00 Miscellaneous Information 1 ea NOTE XX ; Start 07/02/19 at 10:30 Glucose (Glutose) 15 gm Q15M PRN PO DECREASED GLUCOSE; Start 07/02/19 at 10:30 Glucose (Glutose) 22.5 gm Q15M PRN PO DECREASED GLUCOSE; Start 07/02/19 at 10:30 Dextrose (D50w Syringe) 25 ml Q15M PRN IV DECREASED GLUCOSE; Start 07/02/19 at 10:30 Dextrose (D50w Syringe) 50 ml Q15M PRN IV DECREASED GLUCOSE Last administered on 07/06/19at 12:05; Admin Dose 50 ML; Start 07/02/19 at 10:30 Glucagon (Glucagen) 1 mg Q15M PRN IM DECREASED GLUCOSE; Start 07/02/19 at 10:30 Glucose (Glutose) 15 gm Q15M PRN BUCCAL DECREASED GLUCOSE; Start 07/02/19 at 10:30 Hydralazine HCl (Apresoline) 10 mg Q4H PRN IV ELEVATED BLOOD PRESSURE Last administered on 07/02/19at 16:38; Admin Dose 10 MG; Start 07/02/19 at 11:30 Lorazepam (Ativan) 1 mg Q8H PRN PO ANXIETY; Start 07/02/19 at 17:30 Albumin Human 100 ml @ 100 mls/hr WITH DIALYSIS PRN IV SBP <90 DURING DIALYSIS Last administered on 07/05/19at 16:25; Admin Dose 100 MLS/HR; Start 07/03/19 at 12:00 Heparin Sodium (Porcine) (Heparin (1000 Units/ml)) 4,000 unit AFTER DIALYSIS CATHETER ; Start 07/05/19 at 01:00 Insulin Glargine (Lantus) 20 units QHS SC Last administered on 07/05/19at 21:53; Admin Dose 20 UNITS; Start 07/04/19 at 21:00 Carvedilol (Coreg) 6.25 mg BID PO Last administered on 07/07/19 09:44; Admin Dose 6.25 MG; Start 07/05/19 at 21:00 Hydralazine HCl (Apresoline) 25 mg BID PO Last administered on 8/13/19at 20:41; Admin Dose 25 MG; Start 07/05/19 at 21:00 Heparin Sodium (Porcine) (Heparin (1000 Units/ml)) 2,800 unit AFTER DIALYSIS CATHETER Last administered on 07/05/19at 19:42; Admin Dose 2,800 UNIT; Start 07/05/19 at 19:30 Heparin Sodium (Porcine) (Heparin (5000 Units/1ml)) 5,000 unit BID SC Last administered on 07/06/19at 20:54; Admin Dose 5,000 UNIT; Start 07/05/19 at 21:00 Diagnostic Test (Pha) (Accu-Chek) 1 ea 02 XX ; Start 07/07/19 at 02:00 Ferric Sodium Gluconate Complex 125 mg/Sodium Chloride 110 ml @ 110 mls/hr DAILY@1300 IVPB Last administered on 07/07/19at 12:44; Admin Dose 110 MLS/HR; Start 07/06/19 at 13:00; Stop 07/10/19 at 13:59 Dextrose/Sodium Chloride 1,000 ml @ 50 mls/hr Q20H IV Last administered on 07/06/19at 15:43; Admin Dose 50 MLS/HR; Start 07/06/19 at 13:00 Insulin Aspart (Novolog Insulin Pen) NOVOLOG *MILD* ALGORITHM WITH MEALS BEDTIME SC ; Start 07/06/19 at 17:55 Epoetin Nino-epbx (Retacrit (Esrd)) 6,000 unit MoWeFr@1700 SC ; Start 07/07/19 at 17:00 DMITRI ULLOA MD Jul 07, 2019 16:22
[2019-07-07] MEDS ORDERED: EPOETIN ALFA-EPBX (ESRD) 3,000 UNIT/ML VIAL SC SCH (17:00)
[2019-07-07] MEDS: hydrALAzine 20 MG INJ IV PRN (20:29)
[2019-07-07] MEDS: ATORVASTATIN 20 MG TAB PO SCH (20:34)
[2019-07-07] MEDS: INSULIN GLARGINE [LANTus] (100 UNITS/ML) SYG SC SCH (20:45)
[2019-07-08 00:16] VITALS: BP 131/65; PULSE 82; RESP 17
[2019-07-08] MEDS: ACCU-CHEK XX SCH (02:00)
[2019-07-08] MEDS: DEXTROSE 5%-0.9% NACL 1,000 ML IV SCH (04:43)
[2019-07-08 05:02] VITALS: BP 133/68; PULSE 86; RESP 17
[2019-07-08 07:49] VITALS: BP 154/71; PULSE 85; RESP 17
[2019-07-08] MEDS: INSULIN ASPART [NOVOLOG] 3 ML PEN SC SCH ×2 (07:55→11:50)
[2019-07-08] MEDS: HEPARIN 5,000 UNIT/1 ML VIAL SC SCH (09:43)
[2019-07-08 11:27] VITALS: BP 132/69; PULSE 79; RESP 18
[2019-07-08] MEDS: SOD FERRIC GLUC COMPLX 125 MG in SOD CHLORIDE 0.9% 100 ML IVPB SCH (12:30)
--- NOTE | 2019-07-08 14:20 | CONS ---
Assessment/Plan Assessment/Plan Assessment/Plan (Daily) 1. acute hyperkalemia- 5.6 due to JEOVANY on CKD IV - resolved with HD initiation 2. Acute kidney injury on CKD IV due to Hemodynamics from CHF 3. Acute CHF exacerbation , acute on chronic, systolic and Diastolic 4.Cardiomyopathy with EF 50% 5. 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 H/O HTN 7. H/o DM II- Hgb AIC 7.7 8. H/o HL 9. Hypertensive emergency s/p NTG drip 10. Anemia of ESRD Plan: Started on HD on 07/04/19- s/p Permacath placement on 07/07/19- no plan for HD t junior wills to d/c home today HIV, hepatitis panel negative, , outpatient HD placement confirmed at [facility] at 12 pm MWF Epogen 6000 units SQ MWF will follow up Consultation Date/Type/Reason Admit Date/Time Jul 02, 2019 at 03:33 Initial Consult Date 07/02/19 Type of Consult NEPHROLOGY Requesting Provider: EDELMIRA ONTIVEROS MD Date/Time of Note DATE: 07/08/19 TIME: 14:20 Exam/Review of Systems Exam Vitals Vital Signs Date Temp Pulse Resp B/P (MAP) Pulse Ox O2 O2 Flow FiO2 Time Delivery Rate 07/08/19 98.4 79 18 132/69 95 Nasal 11:27 (90) Cannula 07/08/19 2.0 09:35 Intake and Output 07/07/19 07/07/19 07/08/19 1515:00 23:00 07:00 IntakeIntake Total 610 ml 980 ml OutputOutput Total 4250 ml BalanceBalance 610 ml -3270 ml Results Result Diagram: 07/08/19 0658 07/08/19 0659 Results 24hrs Laboratory Tests Test 07/07/19 16:59 07/07/19 20:34 07/08/19 06:58 07/08/19 06:59 Bedside Glucose 170 98 White Blood Count 6.0 Red Blood Count 3.20 L Hemoglobin 7.2 L Hematocrit 25.4 L Mean Corpuscular 79.4 L Volume Mean Corpuscular 22.5 L Hemoglobin Mean Corpuscular 28.3 L Hemoglobin Concent Red Cell 17.1 H Distribution Width Platelet Count 282 Mean Platelet Volume 10.0 Immature 1.000 H Granulocytes % Neutrophils % 72.8 Lymphocytes % 12.0 L Monocytes % 10.0 Eosinophils % 3.7 Basophils % 0.5 Nucleated Red Blood 1.5 H Cells % Immature 0.060 H Granulocytes # Neutrophils # 4.4 Lymphocytes # 0.7 L Monocytes # 0.6 Eosinophils # 0.2 Basophils # 0.0 Nucleated Red Blood 0.1 H Cells # Sodium Level 139 Potassium Level 3.7 Chloride Level 102 Carbon Dioxide Level 30 Anion Gap 7 Blood Urea Nitrogen 34 #H Creatinine 4.07 #H Est Glomerular 12 L Filtrat Rate mL/min Glucose Level 78 Calcium Level 7.8 L Phosphorus Level 5.6 #H Magnesium Level 1.9 Total Bilirubin 0.3 Direct Bilirubin 0.00 Indirect Bilirubin 0.3 Aspartate Amino 19 Transf (AST/SGOT) Alanine 25 Aminotransferase (AL T/SGPT) Alkaline Phosphatase 93 Total Protein 6.4 Albumin 3.0 L Globulin 3.40 H Albumin/Globulin 0.88 Ratio Test 07/08/19 07:41 07/08/19 12:30 Bedside Glucose 77 115 Medications Medication Current Medications Morphine Sulfate (morphine) 2 mg Q3 PRN IV PAIN LEVEL 6-10 Last administered on 07/04/19at 03:48; Admin Dose 2 MG; Start 07/02/19 at 06:00 Ondansetron HCl (Zofran Inj) 4 mg Q6H PRN IV NAUSEA; Start 07/02/19 at 08:30 Acetaminophen (Tylenol Tab) 1,000 mg Q6H PRN PO FEVER Last administered on 07/06/19at 23:34; Admin Dose 1,000 MG; Start 07/02/19 at 08:30 Zolpidem Tartrate (Ambien) 5 mg HS MAY REPEAT X 1 PRN PO INSOMNIA; Start 07/02/19 at 10:00 Atorvastatin Calcium (Lipitor) 20 mg QHS PO Last administered on 07/07/19at 20:34; Admin Dose 20 MG; Start 07/02/19 at 21:00 Miscellaneous Information 1 ea NOTE XX ; Start 07/02/19 at 10:30 Glucose (Glutose) 15 gm Q15M PRN PO DECREASED GLUCOSE; Start 07/02/19 at 10:30 Glucose (Glutose) 22.5 gm Q15M PRN PO DECREASED GLUCOSE; Start 07/02/19 at 10:30 Dextrose (D50w Syringe) 25 ml Q15M PRN IV DECREASED GLUCOSE; Start 07/02/19 at 10:30 Dextrose (D50w Syringe) 50 ml Q15M PRN IV DECREASED GLUCOSE Last administered on 07/06/19 12:05; Admin Dose 50 ML; Start 07/02/19 at 10:30 Glucagon (Glucagen) 1 mg Q15M PRN IM DECREASED GLUCOSE; Start 07/02/19 at 10:30 Glucose (Glutose) 15 gm Q15M PRN BUCCAL DECREASED GLUCOSE; Start 07/02/19 at 10:30 Hydralazine HCl (Apresoline) 10 mg Q4H PRN IV ELEVATED BLOOD PRESSURE Last administered on 07/07/19 20:29; Admin Dose 10 MG; Start 07/02/19 at 11:30 Lorazepam (Ativan) 1 mg Q8H PRN PO ANXIETY; Start 07/02/19 at 17:30 Albumin Human 100 ml @ 100 mls/hr WITH DIALYSIS PRN IV SBP <90 DURING DIALYSIS Last administered on 07/05/19 16:25; Admin Dose 100 MLS/HR; Start 07/03/19 at 12:00 Heparin Sodium (Porcine) (Heparin (1000 Units/ml)) 4,000 unit AFTER DIALYSIS CATHETER Last administered on 07/07/19 21:57; Admin Dose 4,500 UNIT; Start 07/05/19 at 01:00 Insulin Glargine (Lantus) 20 units QHS SC Last administered on 07/07/19 20:45; Admin Dose 20 UNITS; Start 07/04/19 at 21:00 Carvedilol (Coreg) 6.25 mg BID PO Last administered on 07/08/19 09:35; Admin Dose 6.25 MG; Start 07/05/19 at 21:00 Hydralazine HCl (Apresoline) 25 mg BID PO Last administered on 07/08/19 09:35; Admin Dose 25 MG; Start 07/05/19 at 21:00 Heparin Sodium (Porcine) (Heparin (1000 Units/ml)) 2,800 unit AFTER DIALYSIS CATHETER Last administered on 07/05/19 19:42; Admin Dose 2,800 UNIT; Start 07/05/19 at 19:30 Heparin Sodium (Porcine) (Heparin (5000 Units/1ml)) 5,000 unit BID SC Last administered on 07/08/19at 09:43; Admin Dose 5,000 UNIT; Start 07/05/19 at 21:00 Diagnostic Test (Pha) (Accu-Chek) 1 ea 02 XX ; Start 07/07/19 at 02:00 Ferric Sodium Gluconate Complex 125 mg/Sodium Chloride 110 ml @ 110 mls/hr DAILY@1300 IVPB Last administered on 07/08/19at 12:30; Admin Dose 110 MLS/HR; Start 07/06/19 at 13:00; Stop 07/10/19 at 13:59 Dextrose/Sodium Chloride 1,000 ml @ 50 mls/hr Q20H IV Last administered on 07/08/19at 04:43; Admin Dose 50 MLS/HR; Start 07/06/19 at 13:00 Insulin Aspart (Novolog Insulin Pen) NOVOLOG *MILD* ALGORITHM WITH MEALS BEDTI ME SC Last administered on 07/07/19at 17:16; Admin Dose 1 UNIT; Start 07/06/19 at 17:55 Epoetin Nino-epbx (Retacrit (Esrd)) 6,000 unit MoWeFr@1700 SC Last administered on 07/07/19at 17:05; Admin Dose 6,000 UNIT; Start 07/07/19 at 17:00 ALEJANDRO REMY MD Jul 08, 2019 14:20
== END 2019-07-08 14:45 | disposition home or self-care (01) | DRG 291 ==
LOC: E/R 00:34 → ICU 03:33 → TEL 07-03 14:16
PROVIDERS: ADMIT Internal Medicine; ATTEND Internal Medicine
PROC: 5A09357 Assistance with Respiratory Ventilation, Less than 24 Consecutive Hours, Continuous Positive Airway Pressure (ICD-10-PCS; 2019-07-02)
PROC: 06HM33Z Insertion of Infusion Device into Right Femoral Vein, Percutaneous Approach (ICD-10-PCS; 2019-07-03)
PROC: 5A1D70Z Performance of Urinary Filtration, Intermittent, Less than 6 Hours Per Day (ICD-10-PCS; 2019-07-04)
PROC: 0JH63XZ Insertion of Tunneled Vascular Access Device into Chest Subcutaneous Tissue and Fascia, Percutaneous Approach (ICD-10-PCS; 2019-07-07)
PROC: 02H633Z Insertion of Infusion Device into Right Atrium, Percutaneous Approach (ICD-10-PCS; principal; 2019-07-07 08:00)
DX: I13.2 Hypertensive heart and chronic kidney disease with heart failure and with stage 5 chronic kidney disease, or end stage renal disease (principal); I50.43 Acute on chronic combined systolic (congestive) and diastolic (congestive) heart failure; J96.01 Acute respiratory failure with hypoxia; N18.6 End stage renal disease; I16.1 Hypertensive emergency; N17.9 Acute kidney failure, unspecified; E11.22 Type 2 diabetes mellitus with diabetic chronic kidney disease; E87.5 Hyperkalemia; I42.9 Cardiomyopathy, unspecified; E11.21 Type 2 diabetes mellitus with diabetic nephropathy; D63.1 Anemia in chronic kidney disease; E66.9 Obesity, unspecified; Z68.33 Body mass index [BMI] 33.0-33.9, adult; Z99.2 Dependence on renal dialysis
CPT/HCPCS: 36415; 36600; 71045; 76937; 78452; 80048; 80053; 80061; 82607; 82728; 82746; 82803; 82947; 82962; 83036; 83540; 83690; 83735; 83880; 84100; 84484; 85025; 85610; 85730; 86703; 86704; 86709; 86803; 87081; 87340; 90935; 93005; 93017; 94660; 96365; 96366; 96375; A9500; A9505; J0360; J0690; J1644; J1815; J1940; J2270; J2785; J2916; J2997; J3010; J7040; J7042; P9047; Q5105